=== PATIENT | male | born 1935 | race Caucasian/White ===

== ENCOUNTER 2019-10-26 11:49 | Outpatient (RCR) | payer OTHER, SELFPAY | END 2019-10-26 23:59 | disposition home or self-care (01) | LOC: ANHAUDIO 11:49 | PROVIDERS: PCP Otolaryngology; Visit Provider Family Medicine Adolescent Medicine | DX: Z46.1 Encounter for fitting and adjustment of hearing aid (principal) | CPT/HCPCS: 99199; V5267 ==

== ENCOUNTER 2020-07-25 11:53 | Outpatient (NON) | payer OTHER, SELFPAY ==
[2020-07-25 23:24] LABS: SARS-CoV-2 RNA PCR Positive
== END 2020-07-25 11:54 ==
PROVIDERS: Visit Provider Family Medicine Adolescent Medicine
DX: U07.1 COVID-19 (principal)
CPT/HCPCS: 87635; C9803; U0003

== ENCOUNTER → 2021-06-24 10:26 | Outpatient (CLI) | payer OTHER, SELFPAY ==
--- NOTE | ~2021-06-24 | XR_ITS ---
EXAMINATION: XR chest 2V DATE: 06/24/2021 11:13 INDICATION: Dyspnea TECHNIQUE: PA and lateral views of the chest were obtained. COMPARISON: Chest radiograph dated 10/28/2016 FINDINGS: Minimal opacities at the left lung base on the PA projection without evident correlate on the lateral projection and with favor atelectasis over pneumonia. No other airspace opacities, pulmonary edema, pleural effusion or pneumothorax. The cardiomediastinal silhouette is normal. Postoperative change of prior median sternotomy and aortic valve repair. Atherosclerotic aorta. Retained epicardial pacemake r leads along the anterior and inferior heart. Mild thoracic kyphosis with mild to moderate spondylos is and chronic anterior wedging of several mid to lower thoracic vertebral bodies. IMPRESSION: 1. Mild left basilar opacities and would favor atelectasis over pneumonia. Reviewed, dictated and finalized at location A.
== END ==
PROVIDERS: PCP Family Medicine Adolescent Medicine; Visit Provider Family Medicine Adolescent Medicine
DX: R06.00 Dyspnea, unspecified (principal); R91.8 Other nonspecific abnormal finding of lung field
CPT/HCPCS: 71046

== ENCOUNTER → 2023-05-11 08:38 | Outpatient (CLI) | payer OTHER, SELFPAY ==
--- NOTE | ~2023-05-11 | MR_ITS ---
MRI of the brain Clinical History: Dementia Technique: Axial and sagittal T1-weighted images were acquired. These were followed by axial T2-weigh dana, diffusion weighted, gradient, and FLAIR images. Findings: There is no acute infarct, intracranial hemorrhage, or mass lesion. There are mild chronic microvascular ischemic changes in the periventricular white matter bilaterally. Ventricles and subarachnoid spaces are dilated. Orbits are unremarkable. Paranasal sinuses and mastoi d air cells are clear. Major intracranial flow voids are intact. Sagittal midline structures are intact. IMPRESSION: Mild chronic microvascular ischemic changes and mild generalized atrophy. No acute infarct, intracranial hemorrhage, or mass lesion. Reviewed, dictated and finalized at location .
== END ==
PROVIDERS: PCP Family Medicine Adolescent Medicine; Visit Provider Family Medicine Adolescent Medicine
DX: F03.90 Unspecified dementia, unspecified severity, without behavioral disturbance, psychotic disturbance, mood disturbance, and anxiety (principal)
CPT/HCPCS: 70551

== ENCOUNTER 2024-10-22 13:25 | Emergency (ER) | payer OTHER, SELFPAY ==
[2024-10-22 13:53] VITALS: BP 151/74; PULSE 99; RESP 18; TEMP 36.3; O2SAT 98
[2024-10-22 14:42] LABS: Add Urine Microscopic? YES; Appearance Urine Cloudy (Clear); Bacteria Urine 4+ /hpf; Bilirubin Urine Negative (Negative); Blood Urine Trace (Negative); Color Urine Dark Yellow (Yellow); Glucose Urine UA Negative (Negative); Ketones Urine Trace mg/dL (Negative); Leukocyte Esterase Ur 2+ LEU/UL (Negative); Nitrate Urine Positive (Negative); Protein Urine 1+ mg/dL (Negative); RBC Urine 0-2 /hpf (0-2); Squamous Epithelial Cell Urine None Seen /hpf (Few); WBC Urine >100 /hpf (0-3)
--- NOTE | 2024-10-22 16:12 | ED.GENADULT ---
HPI - General Adult General Chief complaint: Urogenital-Male Stated complaint: hematuria Time Seen by Provider: 10/22/24 13:53 History of Present Illness HPI narrative: Patient is an 89-year-old male who presents ER with hematuria. Ongoing last couple of days. He has been stating his underwear. Has history of UTI or earlier in the month. No abdominal pain or flank pain. He has mild dementia and history is obtained from his family. Related Data Home Medications ?Medication ?Instructions ?Recorded ?Confirmed ?Last Taken ?Type ascorbic acid (vitamin C) 1,000 mg 1 g PO DAILY 09/03/21 09/26/24 Unknown History tablet aspirin 81 mg tablet,delayed 81 mg PO DAILY 09/03/21 09/26/24 Unknown History release (Adult Low Dose Aspirin) multivitamin 1 tablet PO DAILY 09/03/21 09/26/24 Unknown History rosuvastatin 20 mg tablet 20 mg PO DAILY 11/13/22 09/26/24 Unknown History mecobalamin (vitamin B12) 1,000 1,000 mcg PO DAILY 04/07/23 09/26/24 Unknown History mcg chewable tablet (B12 Active) Allergies Allergy/AdvReac Type Severity Reaction Status Date / Time bupropion AdvReac Intermediate tremors Verified 09/26/24 10:32 rosuvastatin AdvReac Mild diarrhea Verified 09/26/24 10:32 temazepam AdvReac Mild Unknown Verified 09/26/24 10:32 Review of Systems Constitutional: Constitutional: Reports no additional constitutional complaints Gastrointestinal: Gastrointestinal: Reports no additional gastrointestinal complaints Genitourinary: Genitourinary: Reports no additional male genitourinary complaints [facility] Past Medical History Medical History Traumatic amputation of second toe osteomyelitis Surgical History Surgical History History of aortic valve replacement (2013) History of inguinal hernia repair (2010) Status post reverse arthroplasty of left shoulder (2015) 03/07 Hx laparoscopic cholecystectomy (2010) Family History Family History Father Cancer Mother Cancer Daughter Lung cancer Social History Social History Smoking status: Former smoker Smoking end date: 08/23/69 Alcohol intake: current Drinks per week: 10 Substance use: never Substance use type: does not use Lack of Transportation: No Lack of Food: Never True Current Housing: I Have Housing Concerned About Future Housing: No Difficulty Paying Gas/Electric Bills: No Difficulty Paying for Meds: No Currently Unemployed: No Education: Master's Degree or Higher Difficulty w/ Childcare or Family Care: No Living arrangements: with family Occupation/Education: retired Gender identity (if verbalized by the patient): Male Sexual Orientation (if Verbalized by the Patient): Straight or Heterosexual Spiritual care concerns: No Agree to blood products: Yes Exam Narrative: GENERAL: Well-appearing, well-nourished, and in no acute distress. HEAD: Normocephalic, atraumatic. ENT: Mucous membranes moist. ABDOMEN: Soft, nontender, nondistended. : Normal appearing external genitalia with uncircumcised penis. No evidence of bleeding from urethral meatus, the foreskin, or scrotum. EXTREMITIES: Normal range of motion. No edema. SKIN: Warm, dry, no rash. NEURO: Alert and oriented x3. PSYCH: Normal mood and affect. Course Course Emergency Course: Informed patient and family of diagnosis and treatment plan. Discussed imaging results. Discharged with cefuroxime. Vital Signs Vital signs: Vital Signs Temperature 97.4 F L 10/22/24 13:53 Pulse Rate 99 10/22/24 13:53 Respiratory Rate 18 10/22/24 13:53 Blood Pressure 151/74 H 10/22/24 13:53 Pulse Oximetry 98 10/22/24 13:53 Oxygen Delivery Room Air 10/22/24 13:53 Temperature 97.4 F L 10/22/24 13:53 Pulse Rate 99 10/22/24 13:53 Respiratory Rate 18 10/22/24 13:53 Blood Pressure 151/74 H 10/22/24 13:53 Pulse Oximetry 98 10/22/24 13:53 Oxygen Delivery Room Air 10/22/24 13:53 Medical Decision Making Vital Signs Vital Signs: Vital Signs Temperature 97.4 F L 10/22/24 13:53 Pulse Rate 99 10/22/24 13:53 Respiratory Rate 18 10/22/24 13:53 Blood Pressure 151/74 H 10/22/24 13:53 Pulse Oximetry 98 10/22/24 13:53 Oxygen Delivery Room Air 10/22/24 13:53 Temperature 97.4 F L 10/22/24 13:53 Pulse Rate 99 10/22/24 13:53 Respiratory Rate 18 10/22/24 13:53 Blood Pressure 151/74 H 10/22/24 13:53 Pulse Oximetry 98 10/22/24 13:53 Oxygen Delivery Room Air 10/22/24 13:53 Lab Data Labs: Lab Results 10/22/24 Range/Units 14:17 Urine Color Dark yellow (Yellow) Urine Appearance Cloudy H (Clear) Urine pH 5.0 (5.0-9.0) Ur Specific [place] 1.020 (1.001-1.035) Urine Protein 1+ H (Negative) mg/dL Urine Glucose (UA) Negative (Negative) mg/dL Urine Ketones Trace H (Negative) mg/dL Ur Blood (Man) Trace (Negative) Urine Nitrate Positive H (Negative) Urine Bilirubin Negative (Negative) Urine Urobilinogen 1.0 (<2.0) mg/dL Leukocyte Esterase Rfl 2+ H (Negative) LILI/UL Urine RBC 0-2 (0-2) /hpf Urine WBC >100 H (0-3) /hpf Ur Squamous Epith Cells None seen (Few) /hpf Urine Bacteria 4+ H /hpf Urine Casts 3-5 Imaging Data Radiologist's impression: ITS Impressions Abdomen/Pelvis CT 10/22/24 15:21 IMPRESSION: 1. No evidence of appendicitis, diverticulitis or intestinal obstruction. Diverticulosis of the sigmoid colon. 2. Underfilled urinary bladder with thickened wall. Evaluation for cystitis advised. 3. Tiny stone in the left kidney lower pole. 4. Sliding hiatus hernia. Discharge Plan Discharge Clinical Impression: Acute UTI Patient Disposition: Home, Self-Care Condition: Stable Instructions: Antibiotic Form, Urinary Tract Infection in Men (ED) Additional Instructions: You should return to the emergency department if you develop severe nausea and vomiting and are unable to keep liquids down, if you develop severe back/flank or stomach pain, or if your symptoms are not clearly improving at home. Patient Language: Slovenian Prescriptions: New cefuroxime axetil 500 mg tablet 500 mg PO BID Qty: 20 0RF No Action aspirin [Adult Low Dose Aspirin] 81 mg tablet,delayed release (DR/EC) 81 mg PO DAILY multivitamin Tablet 1 tablet PO DAILY ascorbic acid (vitamin C) 1,000 mg tablet 1 g PO DAILY rosuvastatin 20 mg tablet 20 mg PO DAILY fluticasone propionate 50 mcg/actuation spray,suspension 2 spray intranasal DAILY Qty: 48 2RF Rx Instructions: administer into each nostril sulfamethoxazole-trimethoprim [Bactrim DS] 800-160 mg tablet 1 tablet PO Q12H Qty: 14 0RF lorazepam 0.5 mg tablet 0.5 mg PO QHS PRN (Reason: anxiety) Qty: 30 0RF mecobalamin (vitamin B12) [B12 Active] 1,000 mcg tablet,chewable 1,000 mcg PO DAILY donepezil 10 mg tablet 10 mg PO QHS Qty: 90 3RF pantoprazole 40 mg tablet,delayed release (DR/EC) 40 mg PO BID Qty: 180 1RF meloxicam 15 mg tablet See Rx Instructions .ROUTE .COMPLEX Qty: 90 2RF Dose Instruction: TAKE 1 TABLET BY MOUTH EVERY DAY Rx Instructions: TAKE 1 TABLET BY MOUTH EVERY DAY tamsulosin 0.4 mg capsule 0.4 mg PO DAILY Qty: 90 2RF trazodone 100 mg tablet 100 mg PO QHS Qty: 90 2RF memantine 10 mg tablet 10 mg PO BID Qty: 180 3RF Follow-up/Referrals: Vik Villalba MD [Primary Care Provider] - 1 Week
[2024-10-22 16:28] VITALS: BP 126/80; PULSE 70; RESP 16; TEMP 36.4; O2SAT 98
== END 2024-10-22 16:29 | disposition home or self-care (01) ==
PROVIDERS: Emergency Provider Emergency Medicine; PCP Family Medicine Adolescent Medicine
DX: N39.0 Urinary tract infection, site not specified (principal); Z95.2 Presence of prosthetic heart valve; Z96.612 Presence of left artificial shoulder joint; Z87.891 Personal history of nicotine dependence; Z90.49 Acquired absence of other specified parts of digestive tract; Z89.429 Acquired absence of other toe(s), unspecified side; Z79.82 Long term (current) use of aspirin; Z79.899 Other long term (current) drug therapy; K44.9 Diaphragmatic hernia without obstruction or gangrene; N20.0 Calculus of kidney
CPT/HCPCS: 74176; 81001; 87086; 87186; 99284

== ENCOUNTER 2024-11-18 11:13 | Emergency (ER) | payer OTHER, SELFPAY ==
--- NOTE | ~2024-11-18 | CT_ITS ---
History: Fall PROCEDURE: CT head without contrast. COMPARISON: Reference is made to an MRI examination of the brain dated 05/11/2023 TECHNIQUE: Axial imaging of the head performed from the skull base to the vertex without IV contrast. Sagittal a nd coronal reformations obtained. DLP: 681 mGy-cm FINDINGS: The ventricles are enlarged. The dilatation of the ventricles is proportional to the degree of sulcal prominence, not uncommon in the senescent brain. Decreased attenuation is identified within the periventricular white matter, likely secondary to micr ovascular ischemic disease, in a patient of this age. There is no mass, mass effect or midline shift. There is no abnormal extra-axial fluid collection or intracranial hemorrhage. Visualized paranasal sinuses are clear. The mastoid air cells are well aerated. No acute displaced fractures within the overlying cranium. Impression: No acute intracranial hemorrhage or suspicious mass effect. Reviewed, dictated and finalized at location A. Impression: No acute intracranial hemorrhage or suspicious mass effect.
--- OUTSIDE RECORDS SUMMARY | 2024-11-18 11:15 | XMS_ITS | Encounter Summary ---
Author Organization [facility] Address [address] [address] Care Team Providers Care Chha Name Role Phone Vik Villalba MD Primary Care Prov ider Vik Villalba MD Primary Care Prov ider Encounter Details Date Type Department Care Team (Late st Contact Info) Description 02/11/2016 Orders Only [facility] ProviderMarisel MD [address] [place] [id number] Social History Tobacco Use Types Packs/Day Years Used Date Smoking Tobacco: Former Cigarettes Q uit: 08/23/1969 Alcohol Use Standard Drinks/Week Comments Yes 0 (1 standard drink = 0.6 oz pur e alcohol) Sex and Gender Information Value Date Recorded Sex Assigned at Not on file Legal Sex Male 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 Historical Provider [facility] MOLINA ROMERO Final Result documented in this encounter Visit Diagnoses Not on filedocumented in this encounter Care Teams Chha Relationship Specialty Start Date End Date Vik Villalba MD [address] [place] [address] PCP - General 11/06/16 Vik Villalba MD [address] [place] [address] PCP - General 12/05/14 11/05/16 documented as of this encounter
--- OUTSIDE RECORDS SUMMARY | 2024-11-18 11:15 | XMS_ITS | Clinical Summary ---
Author Organization [facility] [address] [facility] [address] Address [address] [place] [address] Care Team Providers Care Social Media Marketer Name Role Phone Vik Villalba MD Primary Care Prov ider Allergies No known active allergies Medications multivitamin tablet tablet take 1 tablet by oral route every day with food 0 0 4 Active LORazepam (ATIVAN) 1 mg tablet take 1 tablet by oral route 3 times every day as needed 0 0 4 Active aspirin 81 mg tablet take 2 tablet by oral route every day 60 6 5 Active tamsulosin (FLOMAX) 0.4 mg capsule,extende d release 24hr take 1 capsule by oral route every day 1/2 hour following the same meal each day [address] (PROTONIX) 40 mg EC tablet Take 1 tablet (40 mg total) by mouth 2 (two) times a day Active temazepam (RESTORIL) 30 mg capsuleIndicati ons:Insomnia Take 1 capsule (30 mg total) by mouth daily as needed 3 7 Active traZODone (DESYREL) 50 mg tablet Take 1 tablet (50 mg total) by mouth nightly Active meloxicam (MOBIC) 15 mg tablet Take 1 tablet (15 mg total) by mouth daily Active buPROPion XL (WELLBUTRIN XL) 150 mg 24 hr tablet Take 1 tablet (150 mg total) by mouth daily Active ascorbic acid (VITAMIN C) 1,000 mg tablet Take 1 tablet (1,000 mg total) by mouth daily Active cyanocobalamin, vitamin B-12, 5,000 mcg tablet, sublingual Place under the tongue daily Active donepeziL (ARICEPT) 10 mg tablet Take 1 tablet (10 mg total) by mouth nightly at bedtime 4 Active memantine (NAMENDA) 10 mg tablet Take 1 tablet (10 mg total) by mouth 2 (two) times a day 4 Active amLODIPine (NORVASC) 10 mg tablet Take 1 tablet (10 mg total) by mouth nightly 90 tablet 6 4 Active rosuvastatin (CRESTOR) 20 mg tablet TAKE 1 TABLET BY MOUTH EVERY DAY 90 tablet 2 4 Active Active Problems Problem Noted Date Diagnosed Date Osteoarthritis of ankle or foot 01/28/2016 Pain in shoulder 12/11/2015 Arthralgia of ankle 11/25/2015 Fatigue 12/05/2014 Overview (11/27/2016): Fatigue Anxiety 12/05/2014 Overview (11/27/2016): Anxiety Aortic valve stenosis 04/17/2014 Surgical History Surgery Date Site/Laterality Comments AORTIC VALVE REPLACEMENT 08/23/2013 - 08/22/2014 Medical History Medical History Date Comments Hyperlipidemia Heart valve disease Social History Tobacco Use Types Packs/Day Years Used Date Smoking Tobacco: Former Smokeless Tobacco: Never Tobacco Cessation:Counseling Given: Not Answered Alcohol Use Standard Drinks/Week Comments Yes 0 (1 standard drink = 0.6 oz pur e alcohol) Personal Safety Answer Date Recorded Getting School Help Needed Not on file 10/14 Sex and Gender Information Value Date Recorded Sex Assigned at Not on file Legal Sex Male 7:29 PM MANAGER RADIATION Gender Identity Not on file Sexual Orientation Don't know 09/24/2021 9: 14 AM MANAGER RADIATION Sexual Orientation Straight 09/24/2021 9: 14 AM MANAGER RADIATION Obstetrics History Last Filed Vital Signs Vital Sign Reading Time Taken Comments Blood Pressure 138/86 02/16/2024 2:07 PM CDT Pulse 88 02/16/2024 2:07 PM CDT Temperature 36.7 C (98 F) 09/05/2020 1:00 PM MANAGER RADIATION Respiratory Rate 12 08/02/2019 9:20 AM MANAGER RADIATION Oxygen Saturation 97% 02/16/2024 2:07 PM CDT Inhaled Oxygen Concentration - - Weight 92.5 kg (204 lb) 02/16/2024 2:07 PM CDT Height 188 cm (6' 2 ) 02/16/2024 2:07 PM CDT Body Mass Index 26.19 02/16/2024 2:07 PM CDT Plan of Treatment Health Maintenance Due Date Last Done Comments Depression Screening 1937 Fall Risk Assessment 1937 Hepatitis B Screening 1955 Pneumococcal vaccine 65+ (1 of 1 - PCV) 1987 Zoster Vaccine (1 of 2) 1987 Well Visit 65+ 2002 Covid-19 Vaccine ( season) 2024 07/03/2021, 11/05/2020, 10/15/2020 Influenza Vaccine (#1) 2024 DTaP/Tdap/Td Vaccine (2 - Td or Tdap) 02/13/2031 Insurance [facility] Care Teams Social Media Marketer Relationship Specialty Start Date End Date Vik Villalba MD [address] [place] [address] PCP - General 11/06/16
--- OUTSIDE RECORDS SUMMARY | 2024-11-18 11:15 | XMS_ITS | Referral Summary ---
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 Gender Identity Not on file Sexual Orientation Don't know 09/24/2021 9: 14 AM LOCOMOTIVE SUPERVISOR Sexual Orientation Straight 09/24/2021 9: 14 AM LOCOMOTIVE SUPERVISOR Last Filed Vital Signs Vital Sign Reading Time Taken Comments Blood Pressure 138/86 02/16/2024 2:07 PM CDT Pulse 88 02/16/2024 2:07 PM CDT Temperature 36.7 C (98 F) 09/05/2020 1:00 PM LOCOMOTIVE SUPERVISOR Respiratory Rate 12 08/02/2019 9:20 AM LOCOMOTIVE SUPERVISOR Oxygen Saturation 97% 02/16/2024 2:07 PM CDT Inhaled Oxygen Concentration - - Weight 92.5 kg (204 lb) 02/16/2024 2:07 PM CDT Height 188 cm (6' 2 ) 02/16/2024 2:07 PM CDT Body Mass Index 26.19 02/16/2024 2:07 PM CDT Plan of Treatment Not on file Insurance [facility] Member Subscriber Plan / Payer ( fective 2008-Present) Name:David Azevedo Relation to Subscriber:Self Name:David Azevedo Payer ID:[id number] (NAIC) Type:MEDICARE RISK OTHER Address: [address] [place] [id number] Care Teams Storeperson Relationship Specialty Start Date End Date Vik Villalba MD [address] [facility] [place] [place] [address] PCP - General 11/06/16
--- OUTSIDE RECORDS SUMMARY | 2024-11-18 11:15 | XMS_ITS | Clinical Summary ---
Author Organization [facility] Address [address] [place] [address] Care Team Providers Care Hemstitching Machine Operator Name Role Phone Unavailable Primary Care Provider Unavailabl e Social History Tobacco Use Types Packs/Day Years Used Date Smoking Tobacco: Never Assessed Sex and Gender Information Value Date Recorded Sex Assigned at Not on file Legal Sex Male 4:38 PM CDT Gender Identity Not on file Sexual Orientation Not on file Plan of Treatment Health Maintenance Due Date Last Done Comments DTaP, Tdap and Td Vaccines ( 1 - Tdap) 1956 Zoster Vaccines (1 of 2) 1987 Pneumococcal Vaccine: 65+ Ye ars (1 of 1 - PCV) 2002 RSV Immunization or 60+ Years (1 - 1-dose 75+ series) 2012 COVID-19 Vaccine ( - 2023-2 5 season) 2024 Influenza Adult (#1) 2024 Meningococcal B Vaccine Aged Out No l onger eligible based on patient's age to complete this topic Meningococcal Vaccine Aged Out No jorje lexii eligible based on patient's age to complete this topic RSV Immunizations Under 20 Months Aged Out No longer eligible based on patient's age to complete this topic
--- OUTSIDE RECORDS SUMMARY | 2024-11-18 11:15 | XMS_ITS ---
Author Name DEONTE SO M.D. Address [address] [place] [address] Phone [phone] Organization [facility] Care Team Providers Care Field Crop Harvest Contractor Name Role Phone DEONTE SO Unavailable [phone] Sukhwinder Cuevas Unavailable [phone] Vik Villalba Unavailable [phone] Reason for Referral Not Available Allergies, adverse reactions, alerts No known allergies History of medication use Medication Class Instructions Start Date End Date Daily Value Multivitamin Tab 1 tablet orally daily 12-24-19 No Data Available Vitamin B12 100 MCG Tab Take 1 tablet daily 2024-11-09 No Data Available Vitamin C Tab Chewable take one tablet daily 2024-10-22 0 No Data Available Aspirin 81 mg Tab delayed rel 1 tablet every day 11-09 No Data Available Meloxicam 15 mg Tab 1 tablet orally daily PRN No Data Available Problem List Problem Status Onset Date Resolved Date Generalized anxiety disorder Active 2024-11-09 N/A Essential (primary) hypertension Active N/A GERD (gastroesophageal reflux disease) Active 15-11-19 N/A Hyperlipidemia Active 2024-11-09 N/A BPH (benign prostatic hyperplasia) Active 3-20 N/A Nonrheumatic aortic (valve) stenosis Active 2024 N/A Arthritis Active 2024-11-09 N/A Dementia without behavioral disturbance Active N/A Primary insomnia Active 2024-11-09 N/A Encounters Encounters Type Facility Date of Service Diagnosis/Co mplaint Home visit for evaluation and management of new patient requiring medically appropriate examination and moderate level of medical decision making. If using time, at least 60 minutes total time on enco [facility] [place] 11/09/2024 Generalized anxiety disorderEssential (primary) hypertensionGastro-esophageal reflux disease without esophagitisHyperlipidemia, unspecifiedEnlarged prostate without lower urinary tract symptomsNonrheumatic aortic (valve) stenosisUnspecified osteoarthritis, unspecified siteUnspecified dementia without behavioral disturbancePrimary insomniaBody mass index (bmi) 25.0-25.9, adult Vital Signs Date of Collection Vitals 2024-11-09 12:15:00 Height - 190.5 cmWei ght - 93.44 kgBody Mass Index (BMI) - 25.75 kg/m2BP Diastolic - 72.0 mm[Hg]BP Systolic - 132.0 mm[Hg]Heart Rate - 78.0 /minRespiratory Rate - 18.0 /minO2 % BldC Oximetry - 98.0 % Social History Social History Social History Observation Description Effec tive Time Current Smoking Status Former smoker 2024-10-22 9 Sex Male History of Procedures Procedures Service Procedure code Service date Servicing provider Phone# Home visit for evaluation and management of new patient requiring medically appropriate examination and moderate level of medical decision making. If using time, at least 60 minutes total time on enco [id number] 2024-11-09 No Data Available No Data Availa ble Functional Status No Information Mental Status No Information Assessments Date of Service Assessments 2024-11-09 12:15:00 Generalized anxiety disorderEssential (primary) hypertensionGERD (gastroesophageal reflux disease)HyperlipidemiaBPH (benign prostatic hyperplasia)Nonrheumatic aortic (valve) stenosisArthritisDementia without behavioral disturbancePrimary insomnia Plan of Care Date of Service Plans 2024-11-09 12:15:00 Chronic, stable. Josh es lorazepam 0.5-1mg BID PRN. Continue taking medications as prescribed and F/U as directed.Follows cardiology. BP slightly elevated today. Likely due to patient walking into garage for a drink prior to vitals (at the end of visit). states it's typically controlled. Takes amlodipine 10mg daily. Continue taking medications as prescribed and F/U as directed.Chronic, stable. Takes pantoprazole 40mg BID. Continue taking medications as prescribed and F/U as directed.Chronic, unable to view most recent lipid panel. Takes rosuvastatin 20mg daily. Continue taking medications as prescribed and F/U as directed.Takes tamsulosin 0.4mg daily. Continue taking medications as prescribed and F/U as directed.Follows cardiology. Takes rosuvastatin 20mg daily and aspirin 81mg daily. Continue taking medications as prescribed and F/U as directed.Takes meloxicam 15mg daily PRN. Continue taking medications as prescribed and F/U as directed.Stable. Takes donepezil 10mg nightly and memantine 10mg BID. Continue taking medications as prescribed and F/U as directed.Takes trazodone 100mg nightly. Continue taking medications as prescribed and F/U as directed. Goals Date Goal 2024-11-09 Continue taking medi cations as prescribed and F/U with PCP as directed. Will F/U yearly for Healthy House Call exam/screening. Health Concerns Date Concern 2024-11-09 Healthy House Calls is a service that involves a physician or advanced practice provider conducting comprehensive assessments in your patient s home or virtually to address crucial areas such as chronic conditions, quality gaps, social concerns, fall risk prevention, and various screenings. Please note that your patient will remain attributed to you even though they are participating in this service. If you have any questions, please reach out directly to our team at the phone number above.Your patient, David Azevedo, 39, was seen today for a Healthy House Call visit. Patient read rights and responsibilities and consented to treatment. The purpose of this summary is to update you on the patient's current health status and share any relevant findings from the examination. 2024-11-09 Recommendations:Katia muñoz yearly F/U PCP appt or call patient's to remind her of one if already scheduled. 2024-11-09 Patient is a 89yr ol d male. They are being seen today for a Healthy House Calls comprehensive exam. Patient denies any current concerns or symptoms. notes that he has had 2 recent UTI's- ED visit on 10/22/24 for UTI and fall. Patient and deny any remaining symptoms. He finished his antibiotic course a week or so ago. Current diagnoses and medications are as listed below. Patient lives spouse. Closest daughter is in [place], [place]. He is independent with his care regarding ADL's, but relies on for other things as he has dementia. He does not use any form of assistive device for ambulation.
[2024-11-18 11:23] VITALS: BP 127/77; PULSE 95; RESP 16; TEMP 36.4; O2SAT 97
[2024-11-18 14:45] VITALS: BP 156/96; PULSE 95; RESP 16; O2SAT 95
--- OUTSIDE RECORDS SUMMARY | 2024-11-18 15:10 | XMS_ITS | Referral Summary ---
Author Organization [facility] [address] [facility] [address] Address [address] [place] [address] Care Team Providers Care Slipman Name Role Phone Vik Villalba MD Primary [...] on file Legal Sex Male 7:29 PM CAMERA TECHNICIAN Gender Identity Not on file Sexual Orientation Don't know 09/24/2021 9: 14 AM CAMERA TECHNICIAN Sexual Orientation Straight 09/24/2021 9: 14 AM CAMERA TECHNICIAN Last Filed Vital Signs Vital Sign Reading Time Taken Comments Blood Pressure 138/86 02/16/2024 2:07 PM CDT Pulse 88 02/16/2024 2:07 PM CDT Temperature 36.7 C (98 F) 09/05/2020 1:00 PM CAMERA TECHNICIAN Respiratory Rate 12 08/02/2019 9:20 AM CAMERA TECHNICIAN Oxygen Saturation 97% 02/16/2024 2:07 PM CDT Inhaled Oxygen Concentration - - Weight 92.5 kg (204 lb) 02/16/2024 2:07 PM CDT Height 188 cm (6' 2 ) 02/16/2024 2:07 PM CDT Body Mass Index 26.19 02/16/2024 2:07 PM CDT Plan of Treatment Not on file Insurance [facility] Member Subscriber Plan / Payer ( fective 2008-Present) Name:David Azevedo Relation to Subscriber:Self Name:David Azevedo Payer ID:[id number] (NAIC) Type:MEDICARE RISK OTHER Address: [address] [place] [id number] Care Teams Slipman Relationship Specialty Start Date End Date Vik Villalba MD [address] [facility] [place] [address] PCP - General 11/06/16
--- OUTSIDE RECORDS SUMMARY | 2024-11-18 15:10 | XMS_ITS | Encounter Summary ---
Author Organization [facility] Address [address] [address] Care Team Providers Care Supervisor Vendor Quality Name Role Phone Vik Villalba MD Primary Care Prov ider Vik Villalba MD Primary Care Prov ider Encounter Details Date Type Department Care Team (Late st Contact Info) Description 02/11/2016 [facility] Only [facility] ProviderMarisel MD [address] [place] [address] Social History Tobacco Use Types Packs/Day Years Used Date Smoking Tobacco: Former Cigarettes Q uit: 08/23/1969 Alcohol Use Standard Drinks/Week Comments Yes 0 (1 standard drink = 0.6 oz pur e alcohol) Sex and Gender Information Value Date Recorded Sex Assigned at Not on file Legal Sex Male 7:29 PM FIRMWARE MANAGER Gender Identity Not on file Sexual Orientation Don't know 09/24/2021 9: 14 AM FIRMWARE MANAGER Sexual Orientation Straight 09/24/2021 9: 14 AM FIRMWARE MANAGER documented as of this encounter Plan of [...] on filedocumented in this encounter Care Teams Supervisor Vendor Quality Relationship Specialty Start Date End Date Vik Villalba MD [address] [place] [address] PCP - General 11/06/16 Vik Villalba MD [address] [place] [address] PCP - General 12/05/14 11/05/16 documented as of this encounter
--- OUTSIDE RECORDS SUMMARY | 2024-11-18 15:10 | XMS_ITS ---
Author Name DEONTE SO M.D. Address [address] [facility] [place] [address] Phone [phone] Organization [facility] ([facility]) Care Team Providers Care Sliver Handler Name Role Phone DEONTE SO Unavailable [phone] Sukhwinder Cuevas Unavailable [phone] Vik Villalba Unavailable [phone] Reason for Referral Not Available Allergies, adverse [...] least 60 minutes [place] [id number] 2024-11-09 No Data Available No Data Availa [...] Patient lives spouse. Closest daughter is in [place], [place]. He is independent with his care regarding ADL's, but relies on for other things as he has dementia. He does not use any form of assistive device for ambulation.
--- OUTSIDE RECORDS SUMMARY | 2024-11-18 15:10 | XMS_ITS | Clinical Summary ---
Author Organization [facility] [address] [facility] [address] Address [address] [place] [address] Care Team Providers Care Aurist Name Role Phone Vik Villalba MD Primary [...] on file Legal Sex Male 7:29 PM SPRING COILER HAND Gender Identity Not on file Sexual Orientation Don't know 09/24/2021 9: 14 AM SPRING COILER HAND Sexual Orientation Straight 09/24/2021 9: 14 AM SPRING COILER HAND Obstetrics History Last Filed Vital Signs Vital Sign Reading Time Taken Comments Blood Pressure 138/86 02/16/2024 2:07 PM CDT Pulse 88 02/16/2024 2:07 PM CDT Temperature 36.7 C (98 F) 09/05/2020 1:00 PM SPRING COILER HAND Respiratory Rate 12 08/02/2019 9:20 AM SPRING COILER HAND Oxygen Saturation 97% 02/16/2024 2:07 PM CDT [...] (2 - Td or Tdap) 02/13/2031 Insurance [facility] Care Teams Aurist Relationship Specialty Start Date End Date Vik Villalba MD [address] [place] [address] PCP - General 11/06/16
--- OUTSIDE RECORDS SUMMARY | 2024-11-18 15:10 | XMS_ITS | Clinical Summary ---
Author Organization [facility] Address [address] [place] [address] Care Team Providers Care Door Captain Name Role Phone Unavailable Primary Care Provider [...]
[2024-11-18 15:11] LABS: Add Urine Microscopic? YES; Appearance Urine Turbid (Clear); Bacteria Urine 4+ /hpf; Bilirubin Urine Negative (Negative); Blood Urine 1+ (Negative); Color Urine Dark Yellow (Yellow); Glucose Urine UA Negative (Negative); Ketones Urine Trace mg/dL (Negative); Leukocyte Esterase Ur 3+ LEU/UL (Negative); Nitrate Urine Positive (Negative); Protein Urine 1+ mg/dL (Negative); Specific Grav Ur 1.022 (1.001-1.035); Squamous Epithelial Cell Urine None Seen /hpf (Few); WBC Urine >100 /hpf (0-3); pH Urine 5.5 (5.0-9.0)
--- NOTE | 2024-11-18 15:23 | ED.MALEGU ---
HPI - Male Genitourinary General Chief complaint: Urogenital-Male Stated complaint: Urinary S/Sx Time Seen by Provider: 11/18/24 14:49 History of Present Illness HPI Narrative: 89-year-old male with a history of dementia, frequent urinary tract infections. Patient presents to the emergency department today with a UTI as well as falling yesterday. He lives at home with his family. Patient himself has no acute complaints and has been acting appropriately according to family. He is endorsing urinary pain and some dysuria. He had a recent urinary tract infection that was treated with cefuroxime with success. He tried calling his primary care provider but his primary care provider is currently retiring and his new PCP has yet to evaluate him so they sent him to the ER for treatment. Patient denies any symptoms at this time, no headache, vision changes, injury to his extremities. No chest pain shortness a breath. His family at bedside states that he lives with them and he is safe going home upon evaluation here. Related Data Home Medications ?Medication ?Instructions ?Recorded ?Confirmed ?Last Taken ?Type ascorbic acid (vitamin C) 1,000 mg 1 g PO DAILY 09/03/21 09/26/24 Unknown History tablet aspirin 81 mg tablet,delayed 81 mg PO DAILY 09/03/21 09/26/24 Unknown History release (Adult Low Dose Aspirin) multivitamin 1 tablet PO DAILY 09/03/21 09/26/24 Unknown History rosuvastatin 20 mg tablet 20 mg PO DAILY 11/13/22 09/26/24 Unknown History mecobalamin (vitamin B12) 1,000 1,000 mcg PO DAILY 04/07/23 09/26/24 Unknown History mcg chewable tablet (B12 Active) Allergies Allergy/AdvReac Type Severity Reaction Status Date / Time bupropion AdvReac Intermediate tremors Verified 11/18/24 11:14 rosuvastatin AdvReac Mild diarrhea Verified 11/18/24 11:14 temazepam AdvReac Mild Unknown Verified 11/18/24 11:14 Review of Systems Review of Systems: As reviewed above in the HPI [facility] Past Medical History Medical History Traumatic amputation of second toe osteomyelitis Surgical History Surgical History History of aortic valve replacement (2013) History of inguinal hernia repair (2010) Status post reverse arthroplasty of left shoulder (2015) 03/07 Hx laparoscopic cholecystectomy (2010) Family History Family History Father Cancer Mother Cancer Daughter Lung cancer Social History Social History Smoking status: Former smoker Smoking end date: 08/23/69 Alcohol intake: current Drinks per week: 10 Substance use: never Substance use type: does not use Lack of Transportation: No Lack of Food: Never True Current Housing: I Have Housing Concerned About Future Housing: No Difficulty Paying Gas/Electric Bills: No Difficulty Paying for Meds: No Currently Unemployed: No Education: Master's Degree or Higher Difficulty w/ Childcare or Family Care: No Living arrangements: with family Occupation/Education: retired Gender identity (if verbalized by the patient): Male Sexual Orientation (if Verbalized by the Patient): Straight or Heterosexual Spiritual care concerns: No Agree to blood products: Yes Exam Narrative: GENERAL: [Well-appearing, well-nourished, and in no acute distress.] HEAD: [Normocephalic, atraumatic.] EYES: [PERRLA and EOMI.] ENT: Nares clear, no rhinorrhea or epistaxis. Mucous membranes moist. NECK: Supple. CHEST: [Clear to auscultation. No respiratory distress.] HEART: [Regular rate and rhythm]. No murmur heard. [Normal peripheral pulses.] ABDOMEN: [Soft, nondistended], [nontender], [No rigidity or guarding] EXTREMITIES: Normal range of motion. [No edema.] SKIN: Warm, dry, no rash. NEURO: [No focal deficits]. Alert and oriented [x3.] PSYCH: [Normal mood and affect.] Course Vital Signs Vital signs: Vital Signs Temperature 36.4 C L 11/18/24 11:23 Pulse Rate 95 11/18/24 11:23 Respiratory Rate 16 11/18/24 11:23 Blood Pressure 127/77 11/18/24 11:23 Pulse Oximetry 97 11/18/24 11:23 Temperature 36.4 C L 11/18/24 11:23 Pulse Rate 95 03/29/25 14:45 Respiratory Rate 16 11/18/24 14:45 Blood Pressure 156/96 H 11/18/24 14:45 Pulse Oximetry 95 11/18/24 14:45 MDM - Male Genitourinary MDM Narrative Medical decision making narrative: 89-year-old male with history of frequent falls, dementia, frequent urinary tract infections. Recent UTI several weeks ago that was treated with cefuroxime with success. He is reporting recurrence of urinary pain and he had a fall yesterday. No apparent traumatic injuries. He states that he has no complaints at this time. He has an unremarkable physical examination and unremarkable neurological assessment. Normal vital signs. Suspicion presently for recurrence of urinary tract infection which could have also led to his fall. Given the lack of any traumatic injuries low suspicion for any acute intracranial pathology but given his age and risk factors a CT of the head was obtained in addition to urinalysis. Urinalysis does show signs of urinary tract infection. Previous urine culture showed pansensitive E coli. He was started on Rocephin and will be sent home with Bactrim. CT scan shows no acute intracranial abnormalities. He is safe for discharge home at this time. Comfortable with plan and at bedside also comfortable with this. Medical Records Attestation: I reviewed the patient's medical records. Lab Data Attestation: I reviewed the patient's lab results. Labs: Lab Results 11/18/24 Range/Units 14:46 Urine Color Dark yellow (Yellow) Urine Appearance Turbid H (Clear) Urine pH 5.5 (5.0-9.0) Ur Specific Organ 1.022 (1.001-1.035) Urine Protein 1+ H (Negative) mg/dL Urine Glucose (UA) Negative (Negative) mg/dL Urine Ketones Trace H (Negative) mg/dL Ur Blood (Man) 1+ H (Negative) Urine Nitrate Positive H (Negative) Urine Bilirubin Negative (Negative) Urine Urobilinogen 1.0 (<2.0) mg/dL Leukocyte Esterase Rfl 3+ H (Negative) LILI/UL Urine RBC 3-5 H (0-2) /hpf Urine WBC >100 H (0-3) /hpf Ur Squamous Epith Cells None seen (Few) /hpf Urine Bacteria 4+ H /hpf Urine Casts 3-5 Imaging Data Attestation: I personally reviewed and interpreted this imaging study as follows: My impression: Impressions Head CT 11/18/24 15:58 Impression: No acute intracranial hemorrhage or suspicious mass effect. Discharge Plan Discharge Clinical Impression: Urinary tract infection, Frequent falls Patient Disposition: Home, Self-Care Condition: Stable Instructions: Antibiotic Form, Urinary Tract Infection in Men (ED) Additional Instructions: You do have a urinary tract infection, your scans were negative for any acute injury or findings, we will send you home with a different antibiotic to try. Call your primary care provider for a follow-up appointment. Return with any new or worsening concerns. Patient Language: Slovenian Prescriptions: New sulfamethoxazole-trimethoprim [Bactrim DS] 800-160 mg tablet 1 tablet PO Q12H Qty: 14 0RF No Action aspirin [Adult Low Dose Aspirin] 81 mg tablet,delayed release (DR/EC) 81 mg PO DAILY multivitamin Tablet 1 tablet PO DAILY ascorbic acid (vitamin C) 1,000 mg tablet 1 g PO DAILY rosuvastatin 20 mg tablet 20 mg PO DAILY fluticasone propionate 50 mcg/actuation spray,suspension 2 spray intranasal DAILY Qty: 48 2RF Rx Instructions: administer into each nostril sulfamethoxazole-trimethoprim [Bactrim DS] 800-160 mg tablet 1 tablet PO Q12H Qty: 14 0RF lorazepam 0.5 mg tablet 0.5 mg PO QHS PRN (Reason: anxiety) Qty: 30 0RF mecobalamin (vitamin B12) [B12 Active] 1,000 mcg tablet,chewable 1,000 mcg PO DAILY cefuroxime axetil 500 mg tablet 500 mg PO BID Qty: 20 0RF donepezil 10 mg tablet 10 mg PO QHS Qty: 90 3RF pantoprazole 40 mg tablet,delayed release (DR/EC) 40 mg PO BID Qty: 180 1RF meloxicam 15 mg tablet See Rx Instructions .ROUTE .COMPLEX Qty: 90 2RF Dose Instruction: TAKE 1 TABLET BY MOUTH EVERY DAY Rx Instructions: TAKE 1 TABLET BY MOUTH EVERY DAY tamsulosin 0.4 mg capsule 0.4 mg PO DAILY Qty: 90 2RF trazodone 100 mg tablet 100 mg PO QHS Qty: 90 2RF memantine 10 mg tablet 10 mg PO BID Qty: 180 3RF Follow-up/Referrals: Vik Villalba MD [Primary Care Provider] - Time of Disposition: 16:12
[2024-11-18 16:56] VITALS: BP 137/80; PULSE 75; RESP 18; O2SAT 100
== END 2024-11-18 17:44 | disposition home or self-care (01) ==
PROVIDERS: Emergency Provider Student in an Organized Health Care Education/Training Program; PCP Family Medicine Adolescent Medicine
DX: N39.0 Urinary tract infection, site not specified (principal); R29.6 Repeated falls; F03.90 Unspecified dementia, unspecified severity, without behavioral disturbance, psychotic disturbance, mood disturbance, and anxiety; Z95.2 Presence of prosthetic heart valve; Z96.612 Presence of left artificial shoulder joint; Z87.891 Personal history of nicotine dependence; Z90.49 Acquired absence of other specified parts of digestive tract; Z89.429 Acquired absence of other toe(s), unspecified side; Z79.82 Long term (current) use of aspirin; Z79.899 Other long term (current) drug therapy
CPT/HCPCS: 70450; 81001; 87086; 87186; 96365; 99284; J0696

== ENCOUNTER 2024-12-18 09:48 | Emergency (ER) | payer OTHER, SELFPAY ==
[2024-12-18 09:52] VITALS: BP 130/51; PULSE 67; RESP 18; TEMP 36.6; O2SAT 95
[2024-12-18 10:05] LABS: Add Urine Microscopic? YES; Appearance Urine Turbid (Clear); Bilirubin Urine Negative (Negative); Blood Urine 1+ (Negative); Color Urine Yellow (Yellow); Glucose Urine UA Negative (Negative); Ketones Urine Trace mg/dL (Negative); Leukocyte Esterase Ur 3+ LEU/UL (Negative); Nitrate Urine Positive (Negative); Protein Urine 1+ mg/dL (Negative); Specific Grav Ur 1.016 (1.001-1.035)
--- OUTSIDE RECORDS SUMMARY | 2024-12-18 10:49 | XMS_ITS ---
Author Name DEONTE SO M.D. Address [address] [facility] [place] [address] Phone [phone] Organization [facility] ([facility] Care Team Providers Care Press Clippings Cutter And Paster Name Role Phone DEONTE SO Unavailable [phone] Sukhwinder Cuevas Unavailable [phone] Vik Villalba Unavailable [phone] Reason for Referral Not Available Allergies, adverse [...] tive Time Current Smoking Status Former smoker 2024-11-22 8 Sex Male History of Procedures Procedures Service Procedure code Service date Servicing provider Phone# Home visit for evaluation and management of new patient requiring medically appropriate examination and moderate level of medical decision making. If using time, at least 60 minutes [place] on [place]co [id number] 2024-11-09 No Data Available No Data Availa [...] Patient lives spouse. Closest daughter is in [place], [place]. He is independent with his care regarding ADL's, but relies on for other things as he has dementia. He does not use any form of assistive device for ambulation.
--- OUTSIDE RECORDS SUMMARY | 2024-12-18 10:50 | XMS_ITS | Encounter Summary ---
Author Organization [facility] Address [address] [address] Care Team Providers Care Reporting Manager Name Role Phone Vik Villalba MD Primary Care Prov ider Vik Villalba MD Primary Care Prov ider Encounter Details Date Type Department Care Team (Late st Contact Info) Description 02/11/2016 Orders Only [facility] ProviderMarisel MD [address] [place] [address] Social History Tobacco Use Types Packs/Day Years Used Date Smoking Tobacco: Former Cigarettes Q uit: 08/23/1969 Alcohol Use Standard Drinks/Week Comments Yes 0 (1 standard drink = 0.6 oz pur e alcohol) Sex and Gender Information Value Date Recorded Sex Assigned at Not on file Legal Sex Male 7:29 PM GUIDEMAN Gender Identity Not on file Sexual Orientation Don't know 09/24/2021 9: 14 AM GUIDEMAN Sexual Orientation Straight 09/24/2021 9: 14 AM GUIDEMAN documented as of this encounter Plan of [...] on filedocumented in this encounter Care Teams Reporting Manager Relationship Specialty Start Date End Date Vik Villalba MD [address] [place] [address] PCP - General 11/06/16 Vik Villalba MD [address] [place] [address] PCP - General 12/05/14 11/05/16 documented as of this encounter
--- OUTSIDE RECORDS SUMMARY | 2024-12-18 10:50 | XMS_ITS | Clinical Summary ---
Author Organization [facility] Address [address] [place] [address] Care Team Providers Care Emergency Worker Name Role Phone Unavailable Primary Care Provider [...] Td Vaccines ( 1 - Tdap) 1956 Pneumococcal Vaccine: 50+ Ye ars (1 of 1 - PCV) 1987 Zoster Vaccines (1 of 2) 1987 RSV Immunization or 60+ Years (1 - 1-dose 75+ series) 2012 COVID-19 Vaccine ( - 2023-2 5 season) 2024 Meningococcal B Vaccine Aged Out No l onger eligible based on patient's age to complete this topic Meningococcal Vaccine Aged Out No jorje lexii eligible based on patient's age to complete this topic RSV Immunizations Under 20 Months Aged Out No longer eligible based on patient's age to complete this topic
--- OUTSIDE RECORDS SUMMARY | 2024-12-18 10:50 | XMS_ITS | Referral Summary ---
Author Organization [facility] [address] [facility] [address] Address [address] [place] [address] Care Team Providers Care Behavioral Health Professional Name Role Phone Vik Villalba MD Primary [...] on file Legal Sex Male 7:29 PM AGRICULTURAL SPECIALIST Gender Identity Not on file Sexual Orientation Don't know 09/24/2021 9: 14 AM AGRICULTURAL SPECIALIST Sexual Orientation Straight 09/24/2021 9: 14 AM AGRICULTURAL SPECIALIST Last Filed Vital Signs Vital Sign Reading Time Taken Comments Blood Pressure 138/86 02/16/2024 2:07 PM CDT Pulse 88 02/16/2024 2:07 PM CDT Temperature 36.7 C (98 F) 09/05/2020 1:00 PM AGRICULTURAL SPECIALIST Respiratory Rate 12 08/02/2019 9:20 AM AGRICULTURAL SPECIALIST Oxygen Saturation 97% 02/16/2024 2:07 PM CDT Inhaled Oxygen Concentration - - Weight 92.5 kg (204 lb) 02/16/2024 2:07 PM CDT Height 188 cm (6' 2 ) 02/16/2024 2:07 PM CDT Body Mass Index 26.19 02/16/2024 2:07 PM CDT Plan of Treatment Not on file Insurance [facility] Member Subscriber Plan / Payer ( fective 2008-Present) Name:David Azevedo Relation to Subscriber:Self Name:David Azevedo Payer ID:[id number] (NAIC) Type:MEDICARE RISK OTHER Address: [address] [place] [id number] Care Teams Behavioral Health Professional Relationship Specialty Start Date End Date Vik Villalba MD [address] [facility] [place] [address] PCP - General 11/06/16
--- OUTSIDE RECORDS SUMMARY | 2024-12-18 10:50 | XMS_ITS | Clinical Summary ---
Author Organization [facility] [address] [facility] [address] Address [address] [place] [address] Care Team Providers Care Scrap Worker Name Role Phone Vik Villalba MD Primary [...] on file Legal Sex Male 7:29 PM SOFTWARE MAINTENANCE ENGINEER Gender Identity Not on file Sexual Orientation Don't know 09/24/2021 9: 14 AM SOFTWARE MAINTENANCE ENGINEER Sexual Orientation Straight 09/24/2021 9: 14 AM SOFTWARE MAINTENANCE ENGINEER Obstetrics History Last Filed Vital Signs Vital Sign Reading Time Taken Comments Blood Pressure 138/86 02/16/2024 2:07 PM CDT Pulse 88 02/16/2024 2:07 PM CDT Temperature 36.7 C (98 F) 09/05/2020 1:00 PM SOFTWARE MAINTENANCE ENGINEER Respiratory Rate 12 08/02/2019 9:20 AM SOFTWARE MAINTENANCE ENGINEER Oxygen Saturation 97% 02/16/2024 2:07 PM CDT [...] season) 2024 07/03/2021, 11/05/2020, 10/15/2020 Influenza Vaccine (Season Ended) 2025 DTaP/Tdap/Td Vaccine (2 - Td or Tdap) 02/13/[address] [facility] Care Teams Scrap Worker Relationship Specialty Start Date End Date Vik Villalba MD [address] [place] [address] PCP - General 11/06/16
[2024-12-18 11:15] VITALS: BP 104/70; PULSE 81; RESP 16; TEMP 36.7; O2SAT 100
[2024-12-18 11:31] LABS: RBC Urine 0-2 /hpf (0-2); WBC Clumps Urine Present /HPF; WBC Urine >100 /hpf (0-3)
[2024-12-18 11:32] LABS: Squamous Epithelial Cell Urine Rare /hpf (Few)
[2024-12-18 12:00] VITALS: BP 113/76; PULSE 80; RESP 16; TEMP 36.7; O2SAT 100
--- NOTE | 2024-12-18 12:18 | ED.MALEGU ---
HPI - Male Genitourinary General Chief complaint: Urogenital-Male Stated complaint: possible UTI Time Seen by Provider: 12/18/24 10:56 History of Present Illness HPI Narrative: Patient is an 89-year-old male with history of UTI dementia who presents ER with concerns for UTI. Dysuria with urinary frequency beginning this morning. No fevers or chills. No abdominal pain. No history of urinary retention. Has follow-up with Dr. De La Rosa scheduled January 02. Recently treated with cephalosporins and Bactrim. Related Data Home Medications ?Medication ?Instructions ?Recorded ?Confirmed ?Last Taken ?Type ascorbic acid (vitamin C) 1,000 mg 1 g PO DAILY 09/03/21 09/26/24 Unknown History tablet aspirin 81 mg tablet,delayed 81 mg PO DAILY 09/03/21 09/26/24 Unknown History release (Adult Low Dose Aspirin) multivitamin 1 tablet PO DAILY 09/03/21 09/26/24 Unknown History rosuvastatin 20 mg tablet 20 mg PO DAILY 11/13/22 09/26/24 Unknown History mecobalamin (vitamin B12) 1,000 1,000 mcg PO DAILY 04/07/23 09/26/24 Unknown History mcg chewable tablet (B12 Active) Allergies Allergy/AdvReac Type Severity Reaction Status Date / Time bupropion AdvReac Intermediate tremors Verified 11/18/24 11:14 rosuvastatin AdvReac Mild diarrhea Verified 11/18/24 11:14 temazepam AdvReac Mild Unknown Verified 11/18/24 11:14 Review of Systems Constitutional: Constitutional: Reports no additional constitutional complaints Gastrointestinal: Gastrointestinal: Reports no additional gastrointestinal complaints Genitourinary: Genitourinary: Denies hematuria, Reports dysuria, Denies testicular pain and Reports urinary frequency [facility] Past Medical History Medical History Traumatic amputation of second toe osteomyelitis Surgical History Surgical History History of aortic valve replacement (2013) History of inguinal hernia repair (2010) Status post reverse arthroplasty of left shoulder (2015) 03/07 Hx laparoscopic cholecystectomy (2010) Family History Family History Father Cancer Mother Cancer Daughter Lung cancer Social History Social History Smoking status: Former smoker Smoking end date: 08/23/69 Alcohol intake: current Drinks per week: 10 Substance use: never Substance use type: does not use Lack of Transportation: No Lack of Food: Never True Current Housing: I Have Housing Concerned About Future Housing: No Difficulty Paying Gas/Electric Bills: No Difficulty Paying for Meds: No Currently Unemployed: No Education: Master's Degree or Higher Difficulty w/ Childcare or Family Care: No Living arrangements: with family Occupation/Education: retired Gender identity (if verbalized by the patient): Male Sexual Orientation (if Verbalized by the Patient): Straight or Heterosexual Spiritual care concerns: No Agree to blood products: Yes Exam Narrative: GENERAL: Well-appearing, well-nourished, and in no acute distress. HEAD: Normocephalic, atraumatic. ENT: Mucous membranes moist. CHEST: Clear to auscultation. No respiratory distress. HEART: Regular rate and rhythm. Normal peripheral pulses. ABDOMEN: Soft, nontender, nondistended. EXTREMITIES: Normal range of motion. No edema. NEURO: Alert and oriented x2. PSYCH: Normal mood and affect. Course Course Emergency Course: No urinary retention on bladder scan. Discharge with oral antibiotic. Vital Signs Vital signs: Vital Signs Temperature 97.9 F 12/18/24 09:52 Pulse Rate 67 12/18/24 09:52 Respiratory Rate 18 12/18/24 09:52 Blood Pressure 130/51 L 12/18/24 09:52 Pulse Oximetry 95 12/18/24 09:52 Oxygen Delivery Room Air 12/18/24 09:52 Temperature 97.9 F 12/18/24 09:52 Pulse Rate 67 12/18/24 09:52 Respiratory Rate 18 12/18/24 09:52 Blood Pressure 130/51 L 12/18/24 09:52 Pulse Oximetry 95 12/18/24 09:52 Oxygen Delivery Room Air 12/18/24 09:52 MDM - Male Genitourinary Lab Data Labs: Lab Results 12/18/24 Range/Units 09:54 Urine Color Yellow (Yellow) Urine Appearance Turbid H (Clear) Urine pH 6.0 (5.0-9.0) Ur Specific [place] 1.016 (1.001-1.035) Urine Protein 1+ H (Negative) mg/dL Urine Glucose (UA) Negative (Negative) mg/dL Urine Ketones Trace H (Negative) mg/dL Ur Blood (Man) 1+ H (Negative) Urine Nitrate Positive H (Negative) Urine Bilirubin Negative (Negative) Urine Urobilinogen 1.0 (<2.0) mg/dL Leukocyte Esterase Rfl 3+ H (Negative) LILI/UL Urine RBC 0-2 (0-2) /hpf Urine WBC >100 H (0-3) /hpf Urine WBC Clumps Present H (None) /HPF Ur Squamous Epith Cells Rare (Few) /hpf Discharge Plan Discharge Clinical Impression: Acute UTI Patient Disposition: Home Condition: Stable Instructions: Antibiotic Form, Urinary Tract Infection in Men (ED) Additional Instructions: You should return to the emergency department if you develop severe nausea and vomiting and are unable to keep liquids down, if you develop severe back/flank or stomach pain, or if your symptoms are not clearly improving at home. Patient Language: Georgian Prescriptions: New cefuroxime axetil 500 mg tablet 500 mg PO BID Qty: 20 0RF No Action aspirin [Adult Low Dose Aspirin] 81 mg tablet,delayed release (DR/EC) 81 mg PO DAILY multivitamin Tablet 1 tablet PO DAILY ascorbic acid (vitamin C) 1,000 mg tablet 1 g PO DAILY rosuvastatin 20 mg tablet 20 mg PO DAILY fluticasone propionate 50 mcg/actuation spray,suspension 2 spray intranasal DAILY Qty: 48 2RF Rx Instructions: administer into each nostril sulfamethoxazole-trimethoprim [Bactrim DS] 800-160 mg tablet 1 tablet PO Q12H Qty: 14 0RF mecobalamin (vitamin B12) [B12 Active] 1,000 mcg tablet,chewable 1,000 mcg PO DAILY sulfamethoxazole-trimethoprim [Bactrim DS] 800-160 mg tablet 1 tablet PO Q12H Qty: 14 0RF cefuroxime axetil 500 mg tablet 500 mg PO BID Qty: 20 0RF donepezil 10 mg tablet 10 mg PO QHS Qty: 90 3RF pantoprazole 40 mg tablet,delayed release (DR/EC) 40 mg PO BID Qty: 180 1RF meloxicam 15 mg tablet See Rx Instructions .ROUTE .COMPLEX Qty: 90 2RF Dose Instruction: TAKE 1 TABLET BY MOUTH EVERY DAY Rx Instructions: TAKE 1 TABLET BY MOUTH EVERY DAY tamsulosin 0.4 mg capsule 0.4 mg PO DAILY Qty: 90 2RF trazodone 100 mg tablet 100 mg PO QHS Qty: 90 2RF memantine 10 mg tablet 10 mg PO BID Qty: 180 3RF lorazepam 0.5 mg tablet 0.5 mg PO QHS PRN (Reason: anxiety) Qty: 30 4RF Follow-up/Referrals: Vik Villalba MD [Primary Care Provider] - 1 Week
[2024-12-18 12:43] VITALS: BP 111/70; PULSE 77; RESP 18; TEMP 36.8; O2SAT 98
[2024-12-18 12:59] VITALS: BP 111/70; PULSE 78; RESP 16; O2SAT 99
--- NOTE | 2024-12-18 13:00 | PC.NURSE ---
Pt. taken out to vehicle by this RN via WC. Pt. d/c to home with .
--- OUTSIDE RECORDS SUMMARY | 2024-12-18 13:42 | XMS_ITS | Referral Summary ---
Author Organization [facility] [address] [facility] [address] Address [address] [place] [address] Care Team Providers Care Veneer Sander Name Role Phone Vik Villalba MD Primary [...] on file Legal Sex Male 7:29 PM PET STYLIST Gender Identity Not on file Sexual Orientation Don't know 09/24/2021 9: 14 AM PET STYLIST Sexual Orientation Straight 09/24/2021 9: 14 AM PET STYLIST Last Filed Vital Signs Vital Sign Reading Time Taken Comments Blood Pressure 138/86 02/16/2024 2:07 PM CDT Pulse 88 02/16/2024 2:07 PM CDT Temperature 36.7 C (98 F) 09/05/2020 1:00 PM PET STYLIST Respiratory Rate 12 08/02/2019 9:20 AM PET STYLIST Oxygen Saturation 97% 02/16/2024 2:07 PM CDT Inhaled Oxygen Concentration - - Weight 92.5 kg (204 lb) 02/16/2024 2:07 PM CDT Height 188 cm (6' 2 ) 02/16/2024 2:07 PM CDT Body Mass Index 26.19 02/16/2024 2:07 PM CDT Plan of Treatment Not on file Insurance [facility] Member Subscriber Plan / Payer ( fective 2008-Present) Name:David Azevedo Relation to Subscriber:Self Name:David Azevedo Payer ID:[id number] (NAIC) Type:MEDICARE RISK OTHER Address: [address] [place] [id number] Care Teams Veneer Sander Relationship Specialty Start Date End Date Vik Villalba MD [address] [facility] [address] PCP - General 11/06/16
--- OUTSIDE RECORDS SUMMARY | 2024-12-18 13:42 | XMS_ITS | Clinical Summary ---
Author Organization [facility] [place] [address] [facility] [address] Address [address] [place] [address] Care Team Providers Care Personal Lines Sales Executive Name Role Phone Vik Villalba MD Primary [...] on file Legal Sex Male 7:29 PM COMMERCIAL SALES DIRECTOR Gender Identity Not on file Sexual Orientation Don't know 09/24/2021 9: 14 AM COMMERCIAL SALES DIRECTOR Sexual Orientation Straight 09/24/2021 9: 14 AM COMMERCIAL SALES DIRECTOR Obstetrics History Last Filed Vital Signs Vital Sign Reading Time Taken Comments Blood Pressure 138/86 02/16/2024 2:07 PM CDT Pulse 88 02/16/2024 2:07 PM CDT Temperature 36.7 C (98 F) 09/05/2020 1:00 PM COMMERCIAL SALES DIRECTOR Respiratory Rate 12 08/02/2019 9:20 AM COMMERCIAL SALES DIRECTOR Oxygen Saturation 97% 02/16/2024 2:07 PM CDT [...] (2 - Td or Tdap) 02/13/2031 Insurance [facility] Care Teams Personal Lines Sales Executive Relationship Specialty Start Date End Date Vik Villalba MD [address] [place] [address] PCP - General 11/06/16
--- OUTSIDE RECORDS SUMMARY | 2024-12-18 13:42 | XMS_ITS ---
Author Name DEONTE SO M.D. Address [address] [facility] [address] [place] [address] Phone [phone] Organization [facility] ([facility]) Care Team Providers Care Software Sales Executive Name Role Phone DEONTE SO Unavailable [phone] Sukhwinder Cuevas Unavailable [phone] Vik Villalba Unavailable [phone] Reason for Referral Not Available Allergies, adverse [...] least 60 [place] [id number] 2024-11-09 No Data Available No Data Availa [...] Patient lives spouse. Closest daughter is in [place], [place]. He is independent with his care regarding ADL's, but relies on for other things as he has dementia. He does not use any form of assistive device for ambulation.
--- OUTSIDE RECORDS SUMMARY | 2024-12-18 13:42 | XMS_ITS | Encounter Summary ---
Author Organization [facility] Address [address] [address] Care Team Providers Care Coagulant Dipper Name Role Phone Vik Villalba MD Primary Care Prov ider Vik Villalba MD Primary Care Prov ider Encounter Details Date Type Department Care Team (Late st Contact Info) Description 02/11/2016 Orders Only [facility] ProviderMarisel MD [address] [place] [address] Social History Tobacco Use Types Packs/Day Years Used Date Smoking Tobacco: Former Cigarettes Q uit: 08/23/1969 Alcohol Use Standard Drinks/Week Comments Yes 0 (1 standard drink = 0.6 oz pur e alcohol) Sex and Gender Information Value Date Recorded Sex Assigned at Not on file Legal Sex Male 7:29 PM CLINIC MD ASSOCIATE Gender Identity Not on file Sexual Orientation Don't know 09/24/2021 9: 14 AM CLINIC MD ASSOCIATE Sexual Orientation Straight 09/24/2021 9: 14 AM CLINIC MD ASSOCIATE documented as of this encounter Plan of [...] on filedocumented in this encounter Care Teams Coagulant Dipper Relationship Specialty Start Date End Date Vik Villalba MD [address] [place] [address] PCP - General 11/06/16 Vik Villalba MD [address] [place] [address] PCP - General 12/05/14 11/05/16 documented as of this encounter
--- OUTSIDE RECORDS SUMMARY | 2024-12-18 13:42 | XMS_ITS | Clinical Summary ---
Author Organization [facility] Address [address] [place] [address] Care Team Providers Care Shoe Handler Name Role Phone Unavailable Primary Care Provider [...]
== END 2024-12-18 13:00 | disposition home or self-care (01) ==
PROVIDERS: Emergency Provider Emergency Medicine; PCP Family Medicine Adolescent Medicine
DX: N39.0 Urinary tract infection, site not specified (principal); F03.90 Unspecified dementia, unspecified severity, without behavioral disturbance, psychotic disturbance, mood disturbance, and anxiety; Z95.2 Presence of prosthetic heart valve; Z87.891 Personal history of nicotine dependence; Z89.429 Acquired absence of other toe(s), unspecified side; Z90.49 Acquired absence of other specified parts of digestive tract; Z79.82 Long term (current) use of aspirin; Z79.899 Other long term (current) drug therapy
CPT/HCPCS: 81001; 87086; 87186; 99283

== ENCOUNTER 2025-01-10 12:57 | Outpatient (CLI) | payer OTHER, SELFPAY ==
--- OUTSIDE RECORDS SUMMARY | 2025-01-10 13:00 | XMS_ITS | Referral Summary ---
Author Organization [facility] [place] [address] Address [address] [place] [address] Care Team Providers Care Boiler/Chiller Operator Name Role Phone Vik Villalba MD Primary Care Prov ider Allergies No known active allergies Medications multivitamin tablet tablet take 1 tablet by oral route every day with food 0 0 03/06/20 14 Active LORazepam (ATIVAN) 1 mg tablet take 1 tablet by oral route 3 times every day as needed 0 0 05/03/20 14 Active aspirin 81 mg tablet take 2 tablet by oral route every day 60 6 09/14/19 15 Active tamsulosin (FLOMAX) 0.4 mg capsule,extend ed release 24hr take 1 capsule by oral route every day 1/2 hour following the same meal each day 0 0 12/06/[address] (PROTONIX) 40 mg EC tablet Take 1 tablet (40 mg total) by mouth 2 (two) times a day Active temazepam (RESTORIL) 30 mg capsuleIndicat ions:Insomnia Take 1 capsule (30 mg total) by mouth daily as needed 3 07/27/20 17 Active traZODone (DESYREL) 50 mg tablet Take [...] (1,000 mg total) by mouth daily Active cyanocobalamin , vitamin B-12, 5,000 mcg tablet, sublingual Place under the tongue daily Active donepeziL (ARICEPT) 10 mg tablet Take 1 tablet (10 mg total) by mouth nightly at bedtime 12/15/19 24 Active memantine (NAMENDA) 10 mg tablet Take 1 tablet (10 mg total) by mouth 2 (two) times a day 01/26/20 24 Active amLODIPine (NORVASC) 10 mg tablet Take 1 tablet (10 mg total) by mouth nightly 90 tablet 6 02/16/20 24 Active rosuvastatin (CRESTOR) 20 mg tablet TAKE 1 TABLET BY MOUTH EVERY DAY 90 tablet 01/09/20 25 Active rosuvastatin (CRESTOR) 20 mg tablet TAKE 1 TABLET BY MOUTH EVERY DAY 90 tablet 2 04/25/20 24 025 Discontinued Active Problems Problem Noted Date Diagnosed Date [...] on file Legal Sex Male 7:29 PM COOKER MEAL Gender Identity Not on file Sexual Orientation Don't know 09/24/2021 9: 14 AM COOKER MEAL Sexual Orientation Straight 09/24/2021 9: 14 AM COOKER MEAL Last Filed Vital Signs Vital Sign Reading Time Taken Comments Blood Pressure 138/86 02/16/2024 2:07 PM CDT Pulse 88 02/16/2024 2:07 PM CDT Temperature 36.7 C (98 F) 09/05/2020 1:00 PM COOKER MEAL Respiratory Rate 12 08/02/2019 9:20 AM COOKER MEAL Oxygen Saturation 97% 02/16/2024 2:07 PM CDT Inhaled Oxygen Concentration - - Weight 92.5 kg (204 lb) 02/16/2024 2:07 PM CDT Height 188 cm (6' 2 ) 02/16/2024 2:07 PM CDT Body Mass Index 26.19 02/16/2024 2:07 PM CDT Plan of Treatment Not on file Insurance [facility] Member Subscriber Plan / Payer ( fective 2008-Present) Name:MairaDesean lathamjohnathan Dumont Relation to Subscriber:Self Name:David Azevedo Payer ID:[id number] (NAIC) Type:MEDICARE RISK OTHER Address: [place] [phone] [facility] Care Teams Boiler/Chiller Operator Relationship Specialty Start Date End Date Vik Villabla MD [address] [place] [address] PCP - General 11/06/16
--- OUTSIDE RECORDS SUMMARY | 2025-01-10 13:00 | XMS_ITS | Encounter Summary ---
Author Organization [facility] Address [address] [address] Care Team Providers Care Pyrometer Temperature Regulator Name Role Phone Vik Villalba MD Primary Care Prov ider Vik Villalba MD Primary Care Prov ider Encounter Details Date Type Department Care Team (Late st Contact Info) Description 02/11/2016 Orders Only [facility] ProviderMarisel MD [address] [place] [address] Social History Tobacco Use Types Packs/Day Years Used Date Smoking Tobacco: Former Cigarettes Q uit: 08/23/1969 Alcohol Use Standard Drinks/Week Comments Yes 0 (1 standard drink = 0.6 oz pur e alcohol) Sex and Gender Information Value Date Recorded Sex Assigned at Not on file Legal Sex Male 7:29 PM LITHOGRAPHIC PHOTOGRAPHER Gender Identity Not on file Sexual Orientation Don't know 09/24/2021 9: 14 AM LITHOGRAPHIC PHOTOGRAPHER Sexual Orientation Straight 09/24/2021 9: 14 AM LITHOGRAPHIC PHOTOGRAPHER documented as of this encounter Plan of [...] on filedocumented in this encounter Care Teams Pyrometer Temperature Regulator Relationship Specialty Start Date End Date Vik Villalba MD [address] [place] [address] PCP - General 11/06/16 Vik Villalba MD [address] [place] [address] PCP - General 12/05/14 11/05/16 documented as of this encounter
--- OUTSIDE RECORDS SUMMARY | 2025-01-10 13:00 | XMS_ITS ---
Author Name DEONTE SO M.D. Address [address] [facility] [place] [address] Phone [phone] Organization [facility] ([facility]) Care Team Providers Care Billet Grinder Name Role Phone DEONTE SO Unavailable [phone] Sukhwinder Cuevas Unavailable [phone] Vik Villalba Unavailable [phone] Reason for Referral Not Available Allergies, adverse [...] tive Time Current Smoking Status Former smoker 2024-12-22 1 Sex Male History of Procedures Procedures Service Procedure code Service date Servicing provider Phone# Home visit for evaluation and management of new patient requiring medically appropriate examination and moderate level of medical decision making. If using time, at least 60 minutes [place] [id number] 2024-11-09 No Data Available No Data Availa [...] Patient lives spouse. Closest daughter is in [place], [place]. He is independent with his care regarding ADL's, but relies on for other things as he has dementia. He does not use any form of assistive device for ambulation.
--- OUTSIDE RECORDS SUMMARY | 2025-01-10 13:00 | XMS_ITS | Clinical Summary ---
Author Organization [facility] [place] [address] [facility] [address] Address [address] [place] [address] Care Team Providers Care Clinical Training Specialist Name Role Phone Vik Villalba MD Primary [...] file Legal Sex Male 7:29 PM MANAGER CATEGORY Gender Identity Not on file Sexual Orientation Don't know 09/24/2021 9: 14 AM MANAGER CATEGORY Sexual Orientation Straight 09/24/2021 9: 14 AM MANAGER CATEGORY Obstetrics History Last Filed Vital Signs Vital Sign Reading Time Taken Comments Blood Pressure 138/86 02/16/2024 2:07 PM CDT Pulse 88 02/16/2024 2:07 PM CDT Temperature 36.7 C (98 F) 09/05/2020 1:00 PM MANAGER CATEGORY Respiratory Rate 12 08/02/2019 9:20 AM MANAGER CATEGORY Oxygen Saturation 97% 02/16/2024 2:07 PM CDT [...] Well Visit 65+ 2002 Covid-19 Vaccine ( - season) 2024 07/03/2021, 11/05/2020, 10/15/2020 Influenza Vaccine (Season Ended) 2025 DTaP/Tdap/Td Vaccine (2 - Td or Tdap) 02/13/2031 Insurance [facility] Care Teams Clinical Training Specialist Relationship Specialty Start Date End Date Vik Villalba MD [address] [place] [address] PCP - General 11/06/16
== END 2025-01-10 12:58 | disposition home or self-care (01) ==
LOC: ANHAUDIO 12:58
PROVIDERS: PCP Family Medicine Adolescent Medicine; Visit Provider Otolaryngology
DX: H90.3 Sensorineural hearing loss, bilateral (principal); Z97.4 Presence of external hearing-aid; H61.23 Impacted cerumen, bilateral
CPT/HCPCS: 92557; 92567

== ENCOUNTER 2025-01-16 12:12 | Outpatient (CLI) | payer OTHER, SELFPAY ==
--- NOTE | ~2025-01-16 | CT_ITS ---
Non-contrast CT scan of the Abdomen and Pelvis Clinical indication: Kidney stones Technique: 2.5 mm axial scans were obtained through the abdomen and pelvis without intravenous or or al contrast. Dose reduction technique was used on this scan by utilizing automated exposure control a nd iterative reconstruction technique. The dose-length product (DLP) was 263.60 mGy-cm. COMPARISON: 10/22/2024 Findings: Images through the lung bases reveal stable bibasilar, peripheral chronic interstitial dis ease. 2 mm nonobstructing left renal stone present. No right renal stone. No ureteral stone or hydronephros is on either side. The liver, spleen, pancreas, and adrenals appear normal. Cholecystectomy clips are present. There are extensive atherosclerotic calcifications of the aorta. . There is no evidence of bowel obstruction. Images through the pelvis were performed. There is no evidence of ascites or lymphadenopathy. Urinary bladder unremarkable. No pelvic mass seen. Stable compression fractures of T11 and L1. Probable mild compression fracture of L2, new from prior exam. Impression: 2 mm nonobstructing left renal stone. No ureteral stone or hydronephrosis on either side. L2 compression fracture, new from prior exam, therefore most likely acute. Stable chronic compression fractures of T11 and L1. Reviewed, dictated and finalized at location M. Impression: 2 mm nonobstructing left renal stone. No ureteral stone or hydronephrosis on ei ther side. L2 compression fracture, new from prior exam, therefore most likely acute. Stab le chronic compression fractures of T11 and L1.
--- OUTSIDE RECORDS SUMMARY | 2025-01-16 12:16 | XMS_ITS | Referral Summary ---
Author Organization [facility] [place] [address] Address [address] [place] [address] Care Team Providers Care Slot Key Person Name Role Phone Vik Villalba MD Primary [...] on file Legal Sex Male 7:29 PM METAL TEMPERER Gender Identity Not on file Sexual Orientation Don't know 09/24/2021 9: 14 AM METAL TEMPERER Sexual Orientation Straight 09/24/2021 9: 14 AM METAL TEMPERER Last Filed Vital Signs Vital Sign Reading Time Taken Comments Blood Pressure 138/86 02/16/2024 2:07 PM CDT Pulse 88 02/16/2024 2:07 PM CDT Temperature 36.7 C (98 F) 09/05/2020 1:00 PM METAL TEMPERER Respiratory Rate 12 08/02/2019 9:20 AM METAL TEMPERER Oxygen Saturation 97% 02/16/2024 2:07 PM CDT Inhaled Oxygen Concentration - - Weight 92.5 kg (204 lb) 02/16/2024 2:07 PM CDT Height 188 cm (6' 2 ) 02/16/2024 2:07 PM CDT Body Mass Index 26.19 02/16/2024 2:07 PM CDT Plan of Treatment Not on file Insurance [facility] Member Subscriber Plan / Payer ( fective 2008-Present) Name:MairaDesean lathamjohnathan Dumont Relation to Subscriber:Self Name:David Azevedo Payer ID:[id number] (NAIC) Type:MEDICARE RISK OTHER Address: [place] [id number] [facility] Care Teams Slot Key Person Relationship Specialty Start Date End Date Vik Villalba MD [address] [place] [address] PCP - General 11/06/16
--- OUTSIDE RECORDS SUMMARY | 2025-01-16 12:16 | XMS_ITS | Clinical Summary ---
Author Organization [facility] [place] [address] [facility] [address] Address [address] [place] [address] Care Team Providers Care Business Management Specialist Name Role Phone Vik Villalba MD [...] on file Legal Sex Male 7:29 PM SHOP COORDINATOR Gender Identity Not on file Sexual Orientation Don't know 09/24/2021 9: 14 AM SHOP COORDINATOR Sexual Orientation Straight 09/24/2021 9: 14 AM SHOP COORDINATOR Obstetrics History Last Filed Vital Signs Vital Sign Reading Time Taken Comments Blood Pressure 138/86 02/16/2024 2:07 PM CDT Pulse 88 02/16/2024 2:07 PM CDT Temperature 36.7 C (98 F) 09/05/2020 1:00 PM SHOP COORDINATOR Respiratory Rate 12 08/02/2019 9:20 AM SHOP COORDINATOR Oxygen Saturation 97% 02/16/2024 2:07 PM CDT [...] (2 - Td or Tdap) 02/13/2031 Insurance [facility] Care Teams Business Management Specialist Relationship Specialty Start Date End Date Vik Villalba MD [address] [place] [address] PCP - General 11/06/16
--- OUTSIDE RECORDS SUMMARY | 2025-01-16 12:16 | XMS_ITS ---
Author Name DEONTE SO M.D. Address [address] [facility] [place] [address] Phone [phone] Organization [facility] ([facility]) Care Team Providers Care Business Services Manager Name Role Phone DEONTE SO Unavailable [phone] Sukhwinder Cuevas Unavailable [phone] Vik Villalba Unavailable [phone] Reason for Referral Not Available Allergies, adverse [...] List Problem Status Onset Date Resolved Date Synopsis Generalized anxiety disorder Active 2024-11-09 N/A N/A Essential (primary) hypertension Active 2024-11-09 N/A N/A GERD (gastroesophageal reflux disease) Active N/A N/A Hyperlipidemia Active 2024-11-09 N/A N/A BPH (benign prostatic hyperplasia) Active 2024-11-09 N /A N/A Nonrheumatic aortic (valve) stenosis Active 2024-11-09 N/A N/A Arthritis Active 2024-11-09 N/A N/A Dementia without behavioral disturbance Active 2024-10 N/A N/A Primary insomnia Active 2024-11-09 N/A N/A Encounters Encounters Type Facility Date of [...] Time Current Smoking Status Former smoker 2024-12-22 7 Sex Male History of Procedures Procedures Service Procedure code Service date Servicing provider Phone# Home visit for evaluation and management of new patient requiring medically appropriate examination and moderate level of medical decision making. If using time, at least 60 minutes [place] on [place] [id number] 2024-11-09 No Data Available No Data Availa [...] Patient lives spouse. Closest daughter is in [place], [place]. He is independent with his care regarding ADL's, but relies on for other things as he has dementia. He does not use any form of assistive device for ambulation.
--- OUTSIDE RECORDS SUMMARY | 2025-01-16 12:16 | XMS_ITS | Encounter Summary ---
Author Organization [facility] Address [address] [address] Care Team Providers Care Trend Investigator Name Role Phone Vik Villalba MD Primary Care Prov ider Vik Villalba MD Primary Care Prov ider Encounter Details Date Type Department Care Team (Late st Contact Info) Description 02/11/2016 Orders Only [facility] ProviderMarisel MD [address] [place] [address] Social History Tobacco Use Types Packs/Day Years Used Date Smoking Tobacco: Former Cigarettes Q uit: 08/23/1969 Alcohol Use Standard Drinks/Week Comments Yes 0 (1 standard drink = 0.6 oz pur e alcohol) Sex and Gender Information Value Date Recorded Sex Assigned at Not on file Legal Sex Male 7:29 PM COMPUTER PROGRAMMING SUPERVISOR Gender Identity Not on file Sexual Orientation Don't know 09/24/2021 9: 14 AM COMPUTER PROGRAMMING SUPERVISOR Sexual Orientation Straight 09/24/2021 9: 14 AM COMPUTER PROGRAMMING SUPERVISOR documented as of this encounter Plan of [...] on filedocumented in this encounter Care Teams Trend Investigator Relationship Specialty Start Date End Date Vik Villalba MD [address] [place] [address] PCP - General 11/06/16 Vik Villalba MD [address] [place] [address] PCP - General 12/05/14 11/05/16 documented as of this encounter
== END 2025-01-16 12:13 | disposition home or self-care (01) ==
PROVIDERS: PCP Family Medicine Adolescent Medicine; Visit Provider Nurse Practitioner Family
DX: N20.0 Calculus of kidney (principal); S32.029A Unspecified fracture of second lumbar vertebra, initial encounter for closed fracture; X58.XXXA Exposure to other specified factors, initial encounter
CPT/HCPCS: 74176

== ENCOUNTER 2025-02-12 10:30 | Outpatient (RCR) | payer OTHER, SELFPAY | END 2025-02-12 23:59 | disposition home or self-care (01) | LOC: ANHAUDIO 10:30 | PROVIDERS: PCP Family Medicine Adolescent Medicine; Visit Provider Family Medicine Adolescent Medicine | DX: Z46.1 Encounter for fitting and adjustment of hearing aid (principal) | CPT/HCPCS: 99199; V5261 ==

== ENCOUNTER 2025-02-21 11:36 | Inpatient (IN) | payer OTHER, SELFPAY ==
[2025-02-21] VITALS (23 sets, daily range): BP systolic 91–142; BP diastolic 51–82; PULSE 78–97; RESP 13–26; TEMP 36.8–37.1; O2SAT 91–100; BMI 22.9
--- NOTE | ~2025-02-21 | XR_ITS ---
EXAMINATION: XR chest 2V DATE: 02/21/2025 13:14 INDICATION: Hypotension TECHNIQUE: frontal and lateral views of the chest were obtained. COMPARISON: Chest radiograph dated 06/24/2021 FINDINGS: Small lung volumes with mild streaky bibasilar atelectasis. No pulmonary edema, pleural effusion or p neumothorax. Calcified right hilar and mediastinal lymph nodes consistent with old granulomatous dise ase. Heart size is normal. Postoperative change of prior median sternotomy and aortic valve repair. T here are also retained epicardial pacemaker leads. Cholecystectomy clips in right upper quadrant. Sev ere right glenohumeral osteoarthritis. Reverse left total shoulder arthroplasty. IMPRESSION: 1. Small lung volumes with mild bibasilar atelectasis. Reviewed, dictated and finalized at location A.
--- NOTE | ~2025-02-21 | CT_ITS ---
EXAMINATION: CT brain wo con DATE: 02/21/2025 13:20 INDICATION: Hypertension and falls TECHNIQUE: Computed tomography (CT) of the head was performed without intravenous contrast. Sagittal and coronal reconstructions were performed. The mA was adjusted according to patient size. Iterative reconstruction technique was employed. The dose-length product was 681.00 mGy-cm. COMPARISON: head CT dated 11/18/2024 and brain MR dated 05/11/2023 FINDINGS: No acute intracranial hemorrhage, acute infarction or abnormal extra axial fluid collection. 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 There is mild scattered white matter hypoattenuation consistent with chronic small vessel is chemic disease. Symmetric prominence of the sulci and ventricles consistent with mild to moderate age -appropriate diffuse cerebral volume loss. No mass/mass effect. Intracranial calcified cerebral ather osclerosis is noted. Mucosal thickening the bilateral ethmoid sinuses. The orbits and mastoid air rafia ls are normal. IMPRESSION: 1. 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 No acute intracranial process. 2. Age-related changes including moderate diffuse volume loss and mild scattered white matter hypoatt enuation consistent with chronic small vessel ischemic disease. Reviewed, dictated and finalized at location A. IMPRESSION: 1. 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 No acute intracranial process. 2. Age-related changes including moderate diffuse volume loss and mild scattere d white matter hypoattenuation consistent with chronic small vessel ischemic di sease.
--- NOTE | ~2025-02-21 | XR_ITS ---
EXAMINATION: XR chest 1V portable DATE: 02/22/2025 11:19 INDICATION: Possible aspiration with wheezing TECHNIQUE: frontal view of the chest was obtained. COMPARISON: Chest radiograph dated 02/21/2025 FINDINGS: Lung volumes remain small. Lower lung predominant bilateral increased initial pattern with bronchial wall thickening. No pleural effusion or pneumothorax. Heart size within normal limits for AP techniqu e. Median sternotomy wires and prior aortic valve repair. There are retained epicardial pacemaker arpan ds. Cholecystectomy clips in right upper quadrant. Advanced right glenohumeral osteoarthritis and rev erse left total shoulder arthroplasty. IMPRESSION: 1. Small lung volumes with increased initial pattern and bronchial wall thickening in both lungs with lower lung predominance. Differential would include mild pulmonary edema, bronchitis/pneumonia or re active airway disease/asthma. Reviewed, dictated and finalized at location B. IMPRESSION: 1. Small lung volumes with increased initial pattern and bronchial wall thicken ing in both lungs with lower lung predominance. Differential would include mild pulmonary edema, bronchitis/pneumonia or reactive airway disease/asthma.
--- NOTE | ~2025-02-21 | US_ITS ---
US renal BI Ordering provider: Jade Zaragoza APRN History: . NHUNG . Comparison: None. Technique: Ultrasound bilateral kidneys. Findings: RIGHT KIDNEY: Measures 11x 5.6x 5.5 cm in length which is normal in size. No renal cysts. No renal ma ss or visualized echogenic stones. Otherwise, normal echotexture and contour. No hydronephrosis. Norm al renal cortical thickness. LEFT KIDNEY: Measures 10.9x 6.1x 6 cm in length which is normal in size. No renal cysts. No renal mas s or visualized echogenic stones. Otherwise, normal echotexture and contour. No hydronephrosis. Lila l renal cortical thickness. BLADDER: Normal. . The wall measures 0.3 cm. Ureteral jets were seen bilaterally. IMPRESSION: No definite abnormality seen. Reviewed, dictated and finalized at location A.
--- OUTSIDE RECORDS SUMMARY | 2025-02-21 11:40 | XMS_ITS | Encounter Summary ---
Author Organization [facility] Address [address] [address] Care Team Providers Care Chauffeur Airport Limousine Name Role Phone Vik Villalba MD Primary Care Prov ider Vik Villalba MD Primary Care Prov ider Encounter Details Date Type Department Care Team (Late st Contact Info) Description 02/11/2016 Orders Only [facility] ProviderMarisel MD [address] [place] [address] Social History Tobacco Use Types Packs/Day Years Used Date Smoking Tobacco: Former Cigarettes Q uit: 08/23/1969 Alcohol Use Standard Drinks/Week Comments Yes 0 (1 standard drink = 0.6 oz pur e alcohol) Sex and Gender Information Value Date Recorded Sex Assigned at Not on file Legal Sex Male 7:29 PM PRODUCT DEMONSTRATOR Gender Identity Not on file Sexual Orientation Don't know 09/24/2021 9: 14 AM PRODUCT DEMONSTRATOR Sexual Orientation Straight 09/24/2021 9: 14 AM PRODUCT DEMONSTRATOR documented as of this encounter Plan of [...] on filedocumented in this encounter Care Teams Chauffeur Airport Limousine Relationship Specialty Start Date End Date Vik Villalba MD [address] [place] [address] PCP - General 11/06/16 Vik Villalba MD [address] [place] [address] PCP - General 12/05/14 11/05/16 documented as of this encounter
--- OUTSIDE RECORDS SUMMARY | 2025-02-21 11:40 | XMS_ITS | Referral Summary ---
Author Organization [facility] [address] [facility] [address] Address [address] [place] [address] Care Team Providers Care Fuel Distribution System Operator Name Role Phone Vik Villalba MD [...] TABLET BY MOUTH EVERY DAY 90 tablet 5 Active Active Problems Problem Noted Date Diagnosed [...] on file Legal Sex Male 7:29 PM SPRAY FOAM INSTALLER Gender Identity Not on file Sexual Orientation Don't know 09/24/2021 9: 14 AM SPRAY FOAM INSTALLER Sexual Orientation Straight 09/24/2021 9: 14 AM SPRAY FOAM INSTALLER Last Filed Vital Signs Vital Sign Reading Time Taken Comments Blood Pressure 138/86 02/16/2024 2:07 PM CDT Pulse 88 02/16/2024 2:07 PM CDT Temperature 36.7 C (98 F) 09/05/2020 1:00 PM SPRAY FOAM INSTALLER Respiratory Rate 12 08/02/2019 9:20 AM SPRAY FOAM INSTALLER Oxygen Saturation 97% 02/16/2024 2:07 PM CDT Inhaled Oxygen Concentration - - Weight 92.5 kg (204 lb) 02/16/2024 2:07 PM CDT Height 188 cm (6' 2) 02/16/2024 2:07 PM CDT Body Mass Index 26.19 02/16/2024 2:07 PM CDT Plan of Treatment Not on file Insurance [employer] Care Teams Fuel Distribution System Operator Relationship Specialty Start Date End Date Vik Villalba MD [address] [place] [address] PCP - General 11/06/16
--- OUTSIDE RECORDS SUMMARY | 2025-02-21 11:40 | XMS_ITS ---
Author Name DEONTE SO M.D. Address [address] [facility] [place] [address] Phone [phone] Organization [facility] ([facility] Care Team Providers Care Deckhand Oyster Dredge Name Role Phone DEONTE SO Unavailable [phone] Sukhwinder Cuevas Unavailable [phone] Vik Villalba Unavailable [phone] Reason for Referral Not Available Allergies, adverse [...] tive Time Current Smoking Status Former smoker 2 Sex Male History of Procedures Procedures Service Procedure code Service date Servicing provider Phone# Home visit for evaluation and management of new patient requiring medically appropriate examination and moderate level of medical decision making. If using time, at least 60 minutes [place] on enco [id number] 2024-11-09 No Data Available No Data Availa [...] Patient lives spouse. Closest daughter is in [place], [place]. He is independent with his care regarding ADL's, but relies on for other things as he has dementia. He does not use any form of assistive device for ambulation.
--- OUTSIDE RECORDS SUMMARY | 2025-02-21 11:40 | XMS_ITS | Clinical Summary ---
Author Organization [facility] [address] [facility] [address] Address [address] [place] [address] Care Team Providers Care Community Leader Name Role Phone Vik Villalba MD Primary [...] on file Legal Sex Male 7:29 PM CONVERTER OPERATOR Gender Identity Not on file Sexual Orientation Don't know 09/24/2021 9: 14 AM CONVERTER OPERATOR Sexual Orientation Straight 09/24/2021 9: 14 AM CONVERTER OPERATOR Obstetrics History Last Filed Vital Signs Vital Sign Reading Time Taken Comments Blood Pressure 138/86 02/16/2024 2:07 PM CDT Pulse 88 02/16/2024 2:07 PM CDT Temperature 36.7 C (98 F) 09/05/2020 1:00 PM CONVERTER OPERATOR Respiratory Rate 12 08/02/2019 9:20 AM CONVERTER OPERATOR Oxygen Saturation 97% 02/16/2024 2:07 PM CDT [...] 2024 07/03/2021, 11/05/2020, 10/15/2020 Influenza Vaccine (#1) 2025 DTaP/Tdap/Td Vaccine (2 - Td or Tdap) 02/13/2031 Insurance [facility] Care Teams Community Leader Relationship Specialty Start Date End Date Vik Villalba MD [address] [place] [address] PCP - General 11/06/16
--- NOTE | 2025-02-21 12:11 | ECG_ITS ---
Test Date: 2025-02-21 12:28:15 Measurements Intervals [place] Rate: 89 P: -78 IN: 156 QRS: -30 QRSD: 105 T: -12 QT: 374 QTc: 456 Interpretive Statements ECTOPIC ATRIAL RHYTHM BORDERLINE LEFT AXIS DEVIATION [QRS AXIS < -20] ABNORMAL RHYTHM ECG No previous ECG available for comparison Electronically Signed On 02-21-2025 12:57:09 CDT by Julio Trinh M.D.
--- OUTSIDE RECORDS SUMMARY | 2025-02-21 12:11 | XMS_ITS | Encounter Summary ---
Author Organization [facility] Address [address] [address] Care Team Providers Care Laundry Housekeeper Name Role Phone Vik Villalba MD Primary Care Prov ider Vik Villalba MD Primary Care Prov ider Encounter Details Date Type Department Care Team (Late st Contact Info) Description 02/11/2016 Orders Only [facility] ProviderMarisel MD [address] [place] [address] Social History Tobacco Use Types Packs/Day Years Used Date Smoking Tobacco: Former Cigarettes Q uit: 08/23/1969 Alcohol Use Standard Drinks/Week Comments Yes 0 (1 standard drink = 0.6 oz pur e alcohol) Sex and Gender Information Value Date Recorded Sex Assigned at Not on file Legal Sex Male 7:29 PM METALIZER Gender Identity Not on file Sexual Orientation Don't know 09/24/2021 9: 14 AM METALIZER Sexual Orientation Straight 09/24/2021 9: 14 AM METALIZER documented as of this encounter Plan of [...] on filedocumented in this encounter Care Teams Laundry Housekeeper Relationship Specialty Start Date End Date Vik Villalba MD [address] [place] [address] PCP - General 11/06/16 Vik Villalba MD [address] [place] [address] PCP - General 12/05/14 11/05/16 documented as of this encounter
--- OUTSIDE RECORDS SUMMARY | 2025-02-21 12:11 | XMS_ITS | Referral Summary ---
Author Organization [facility] [address] [facility] [address] Address [address] [place] [address] Care Team Providers Care Mold Tooler Name Role Phone Vik Villalba MD Primary [...] on file Legal Sex Male 7:29 PM LINUX CONSULTANT Gender Identity Not on file Sexual Orientation Don't know 09/24/2021 9: 14 AM LINUX CONSULTANT Sexual Orientation Straight 09/24/2021 9: 14 AM LINUX CONSULTANT Last Filed Vital Signs Vital Sign Reading Time Taken Comments Blood Pressure 138/86 02/16/2024 2:07 PM CDT Pulse 88 02/16/2024 2:07 PM CDT Temperature 36.7 C (98 F) 09/05/2020 1:00 PM LINUX CONSULTANT Respiratory Rate 12 08/02/2019 9:20 AM LINUX CONSULTANT Oxygen Saturation 97% 02/16/2024 2:07 PM CDT Inhaled Oxygen Concentration - - Weight 92.5 kg (204 lb) 02/16/2024 2:07 PM CDT Height 188 cm (6' 2) 02/16/2024 2:07 PM CDT Body Mass Index 26.19 02/16/2024 2:07 PM CDT Plan of Treatment Not on file Insurance [facility] Care Teams Mold Tooler Relationship Specialty Start Date End Date Vik Villalba MD [address] [place] [address] PCP - General 11/06/16
--- OUTSIDE RECORDS SUMMARY | 2025-02-21 12:11 | XMS_ITS | Clinical Summary ---
Author Organization [facility] Address [address] [place] [address] Care Team Providers Care Jira Administrator Name Role Phone Unavailable Primary Care Provider [...]
--- OUTSIDE RECORDS SUMMARY | 2025-02-21 12:11 | XMS_ITS ---
Author Name DEONTE SO M.D. Address [address] [facility] [place] [address] Phone [phone] Organization [facility] ([facility]) Care Team Providers Care Owner Oral Surgeon Name Role Phone DEONTE SO Unavailable [phone] Sukhwinder Cuevsa Unavailable [phone] Vik Villalba Unavailable [phone] Reason for Referral Not Available Allergies, adverse [...] least 60 [place] [id number] 2024-11-09 No Data Available No Data Availa [...] Patient lives spouse. Closest daughter is in [place], [place]. He is independent with his care regarding ADL's, but relies on for other things as he has dementia. He does not use any form of assistive device for ambulation.
--- OUTSIDE RECORDS SUMMARY | 2025-02-21 12:11 | XMS_ITS | Clinical Summary ---
Author Organization [facility] [address] [facility] [address] Address [address] [place] [address] Care Team Providers Care Manager Library Name Role Phone Vik Villalba MD Primary [...] on file Legal Sex Male 7:29 PM SALT CUTTER Gender Identity Not on file Sexual Orientation Don't know 09/24/2021 9: 14 AM SALT CUTTER Sexual Orientation Straight 09/24/2021 9: 14 AM SALT CUTTER Obstetrics History Last Filed Vital Signs Vital Sign Reading Time Taken Comments Blood Pressure 138/86 02/16/2024 2:07 PM CDT Pulse 88 02/16/2024 2:07 PM CDT Temperature 36.7 C (98 F) 09/05/2020 1:00 PM SALT CUTTER Respiratory Rate 12 08/02/2019 9:20 AM SALT CUTTER Oxygen Saturation 97% 02/16/2024 2:07 PM CDT [...] or Tdap) 02/13/2031 Insurance [facility] Care Teams Manager Library Relationship Specialty Start Date End Date Vik Villalba MD [address] [place] [address] PCP - General 11/06/16
[2025-02-21 12:23] LABS: Hematocrit 31.8 % (42.0-52.0); Hemoglobin 10.5 g/dL (14.0-18.0); Immature Granulocyte Percent A 0.6 % (0-0.5); Lymphocytes Absolute Auto 0.82 K/mm3 (0.9-3.2); Mean Corpuscular HGB Conc 33.0 g/dl (32-36); Mean Corpuscular Hemoglobin 30.3 pg (26-34); Mean Corpuscular Volume 91.6 fl (80-100); Nucleated Red Blood Cells Absolute Auto 0.000 K/mm3 (0.0-0.012); Nucleated Red Blood Cells Perc 0.0 % (0.0-0.2); Platelet Count Result 209 k/mm3 (150-375); Red Blood Count 3.47 M/mm3 (4.6-6.20); White Blood Count 14.1 K/mm3 (4.5-10.0)
[2025-02-21 12:41] LABS: Alanine Aminotransferase 16 U/L (6-50); Albumin Level 3.1 g/dL (3.5-5.1); Alkaline Phosphatase 62 U/L (38-126); Anion Gap 7 mmol/L (4-12); Aspartate Amino Transferase 28 U/L (17-59); Bilirubin,Total 0.8 mg/dL (0.2-1.3); Blood Urea Nitrogen 22 mg/dL (9-20); Calcium 8.6 mg/dL (8.4-10.2); Carbon Dioxide 25 mmol/L (22-30); Chloride 105 mmol/L (98-107); Estimated CRCL calculation 36 ml/min; Estimated Glomerular Filt Rate 41; Glucose 134 mg/dL (65-110); Magnesium 1.8 mg/dL (1.6-2.3); Potassium 4.1 mmol/L (3.4-5.0); Sodium 137 mmol/L (137-145); Total Protein 6.3 g/dL (6.3-8.2)
--- NOTE | 2025-02-21 12:45 | ED_ITS ---
HPI - Recheck/Abnormal Lab/Rx General Chief Complaint: Recheck/Abnormal Lab/Rx Stated Complaint: frequent falls Time Seen by Provider: 02/21/25 12:01 History of Present Illness HPI narrative: 89-year-old male with history of urinary tract infections and dementia presenting to the emergency department for frequent falls. Patient was noted to have low blood pressure readings and went to his regular doctor about this several days ago. They ordered some blood tests. Patient's family states that his family practitioner called him today to go the hospital for evaluation. Patient has been falling frequently without any associated head trauma or loss of consciousness. He is acting as baseline mentation which is at bedside states seems to be from dementia. He has a history of recurrent urinary tract infections and was recently seen and treated for 1 back in November. Patient himself has no acute complaints aside from low blood pressure readings. Patient denies any headache, vision changes, chest pain, abdominal pain, back pain, dysuria. He does have various scrapes around his bilateral lower extremities and hands from frequent falls but no visible head trauma. No anticoagulated use per review of the EMR. Related Data Home Medications ?Medication ?Instructions ?Recorded ?Confirmed ?Last Taken ?Type ascorbic acid (vitamin C) 1,000 mg 1 g PO DAILY 09/03/21 02/21/25 02/20/25 History tablet aspirin 81 mg tablet,delayed 81 mg PO DAILY 09/03/21 02/21/25 02/20/25 History release (Adult Low Dose Aspirin) multivitamin 1 tablet PO DAILY 09/03/21 02/21/25 02/20/25 History rosuvastatin 20 mg tablet 20 mg PO DAILY 11/13/22 02/21/25 02/20/25 History mecobalamin (vitamin B12) 1,000 1,000 mcg PO DAILY 04/07/23 02/21/25 02/20/25 History mcg chewable tablet (B12 Active) Allergies Allergy/AdvReac Type Severity Reaction Status Date / Time bupropion AdvReac Intermediate tremors Verified 02/21/25 11:54 rosuvastatin AdvReac Mild diarrhea Verified 02/21/25 11:54 temazepam AdvReac Mild Unknown Verified 02/21/25 11:54 [facility] Past Medical History Medical History Traumatic amputation of second toe osteomyelitis Surgical History Surgical History History of aortic valve replacement (2013) History of inguinal hernia repair (2010) Status post reverse arthroplasty of left shoulder (2015) 03/07 Hx laparoscopic cholecystectomy (2010) Family History Family History Father Cancer Mother Cancer Daughter Lung cancer Social History Social History Smoking status: Former smoker Alcohol intake: current Drinks per week: 10 Substance use: never Substance use type: does not use Lack of Transportation: No Lack of Food: Never True Current Housing: I Have Housing Concerned About Future Housing: No Difficulty Paying Gas/Electric Bills: No Difficulty Paying for Meds: No Currently Unemployed: No Education: Master's Degree or Higher Difficulty w/ Childcare or Family Care: No Living arrangements: with family Occupation/Education: retired Gender identity (if verbalized by the patient): Male Sexual Orientation (if Verbalized by the Patient): Straight or Heterosexual Spiritual care concerns: No Agree to blood products: Yes Course Vital Signs Vital signs: Vital Signs Temperature 37.0 C 02/21/25 11:49 Pulse Rate 97 02/21/25 11:49 Respiratory Rate 14 02/21/25 11:49 Blood Pressure 115/63 02/21/25 11:49 Pulse Oximetry 98 02/21/25 11:49 Oxygen Delivery Room Air 02/21/25 11:49 Temperature 37.1 C 02/21/25 20:19 Pulse Rate 78 02/21/25 20:19 Respiratory Rate 18 02/21/25 20:19 Blood Pressure 109/56 L 02/21/25 20:19 Pulse Oximetry 97 02/21/25 20:19 Oxygen Delivery Room Air 02/21/25 16:56 MDM - Recheck/Abnormal Lab/Rx MDM Narrative Medical decision making narrative: 89-year-old male with history of urinary tract infections and dementia presenting to the emergency department for frequent falls. Patient was noted to have low blood pressure readings and went to his regular doctor about this several days ago. They ordered some blood tests. Patient's family states that his family practitioner called him today to go the hospital for evaluation. Patient has been falling frequently without any associated head trauma or loss of consciousness. He is acting as baseline mentation which is at bedside states seems to be from dementia. He has a history of recurrent urinary tract infections and was recently seen and treated for 1 back in November. Patient himself has no acute complaints aside from low blood pressure readings. Patient denies any headache, vision changes, chest pain, abdominal pain, back pain, dysuria. He does have various scrapes around his bilateral lower extremities and hands from frequent falls but no visible head trauma. No anticoagulated use per review of the EMR. Patient has an unremarkable physical examination aside from some soft blood pressure readings. At 1 point his blood pressure in the examination room was 89/60. This could contribute to his frequent falls or could also be a potential side towards other underlying pathology such as dehydration, intravascular volume depletion, inflammation, infection or sepsis. Overall patient is as baseline mentation not ill-appearing. He was given 30 cc/kg bolus of lactated Ringer's given his low blood pressure readings and lactic acid and blood cultures were drawn as well as urinalysis, chest x-ray. CT of the head was ordered. Laboratory studies ordered. He is currently afebrile without any tachycardia or hypoxia. Will obtain laboratory studies and further evaluation. Workup reveals a leukocytosis of 14.1, hemoglobin 10.5, platelets of 209. Electrolytes are unremarkable, he does have an elevated BUN and creatinine above his baseline consistent with acute kidney injury. Lactic acid is negative. Glucose 134. LFTs negative. TSH just under the lower limit of normal but normal T4 and T3 reflex. Urinalysis has urinary tract infection signs of bacteria, white cells and leukocyte esterase. Chest x-ray shows bibasilar atelectasis. CT of the head shows no acute intracranial findings. EKG shows no ST segment elevations or depressions. Patient started on Rocephin for urinary tract infection. At this time patient will be admitted to the hospital for acute kidney injury and urinary tract infection. His blood pressure did improve after fluid resuscitation. Spoke to the hospitalist team and we went over patient's clinical exam, historical features, imaging results and plan of care with antibiotics and fluids. Patient was admitted to the telemetry monitored bed at this time. Family members made aware at bedside. Medical Records Attestation: I reviewed the patient's medical records. Lab Data Attestation: I reviewed the patient's lab results. 02/21/25 12:18 02/21/25 12:18 Labs: Lab Results 02/21/25 02/21/25 02/21/25 Range/Units 12:18 12:46 12:50 WBC 14.1 H (4.5-10.0) K/mm3 RBC 3.47 L (4.6-6.20) M/mm3 Hgb 10.5 L (14.0-18.0) g/dL Hct 31.8 L (42.0-52.0) % MCV 91.6 (80-100) fl MCH 30.3 (26-34) pg MCHC 33.0 (32-36) g/dl RDW 13.4 (11.5-14.5) % Plt Count 209 (150-375) k/mm3 MPV 9.8 (7.4-10.4) fl Immature Gran % (Auto) 0.6 H (0-0.5) % Neut % (Auto) 85.0 H (45.5-73.1) % Lymph % (Auto) 5.8 L (18.3-44.2) % [place] % (Auto) 8.1 (2.6-8.5) % Eos % (Auto) 0.1 (0-4.4) % Baso % (Auto) 0.4 (0.2-1.2) % Lymph # (Auto) 0.82 L (0.9-3.2) K/mm3 [place] # (Auto) 1.1 H (0.1-0.6) K/mm3 Eos # (Auto) 0.0 (0-0.3) K/mm3 Baso # (Auto) 0.1 (0.0-0.1) K/mm3 Abs Immat Gran (auto) 0.08 H (0.00-0.031) K/mm3 Absolute Neuts (auto) 12.0 H (1.3-6.7) K/mm3 Absolute Nucleated RBC 0.000 (0.0-0.012) K/mm3 Nucleated RBC % 0.0 (0.0-0.2) % Sodium 137 (137-145) mmol/L Potassium 4.1 (3.4-5.0) mmol/L Chloride 105 (98-107) mmol/L Carbon Dioxide 25 (22-30) mmol/L Anion Gap 7 (4-12) mmol/L BUN 22 H (9-20) mg/dL Creatinine 1.59 H (0.7-1.3) mg/dL Estim Creat Clear Calc 36 ml/min Estimated GFR 41 L (59 - ) Glucose 134 H (65-110) mg/dL Lactic Acid 1.8 (0.7-2.0) mmol/L Calcium 8.6 (8.4-10.2) mg/dL Magnesium 1.8 (1.6-2.3) mg/dL Total Bilirubin 0.8 (0.2-1.3) mg/dL AST 28 (17-59) U/L ALT 16 (6-50) U/L Alkaline Phosphatase 62 (38-126) U/L C-Reactive Protein 2.7 H (<1.0) mg/dL Total Protein 6.3 (6.3-8.2) g/dL Albumin 3.1 L (3.5-5.1) g/dL TSH (Reflex) 0.460 L (0.465-4.68) uIU/mL Free T4 1.29 (0.78-2.19) ng/dL Total T3 1.06 (0.82-1.58) NG/ML Urine Color Yellow (Yellow) Urine Appearance Turbid H (Clear) Urine pH 5.5 (5.0-9.0) Ur Specific [place] 1.015 (1.001-1.035) Urine Protein 2+ H (Negative) mg/dL Urine Glucose (UA) Negative (Negative) mg/dL Urine Ketones Trace H (Negative) mg/dL Ur Blood (Man) 1+ H (Negative) Urine Nitrate Negative (Negative) Urine Bilirubin Negative (Negative) Urine Urobilinogen 1.0 (<2.0) mg/dL Add Ur Microanalysis Reviewed Leukocyte Esterase Rfl 3+ H (Negative) LILI/UL Urine RBC 0-2 (0-2) /hpf Urine WBC >100 H (0-3) /hpf Ur Squamous Epith Cells None seen (Few) /hpf Urine Bacteria 4+ H /hpf Urine Casts 3-5 Imaging Data Attestation: I personally reviewed and interpreted this imaging study as follows: My impression: Impressions Chest X-Ray 02/21/25 13:15 IMPRESSION: 1. Small lung volumes with mild bibasilar atelectasis. Head CT 02/21/25 13:42 IMPRESSION: 1. 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 No acute intracranial process. 2. Age-related changes including moderate diffuse volume loss and mild scattered white matter hypoattenuation consistent with chronic small vessel ischemic disease. Critical Care Time Critical Care Time Critical Care Time: Yes Total Critical Care Time: 35 Discharge Plan Discharge Clinical Impression: Acute kidney injury, Frequent falls, Blood pressure abnormally low Urinary tract infection Qualifiers: Urinary tract infection type: acute cystitis Hematuria presence: without hematuria Qualified Code(s): N30.00 - Acute cystitis without hematuria Patient Disposition: Still a Patient Condition: Stable
[2025-02-21] MEDS: LACTATED RINGERS 1,000 ML 999 ML IV CONT ×2 (12:57)
[2025-02-21 13:10] LABS: CRP 2.7 mg/dL (<1.0)
[2025-02-21 13:12] LABS: Add Urine Microscopic? YES; Appearance Urine Turbid (Clear); Glucose Urine UA Negative (Negative); Leukocyte Esterase Ur 3+ LEU/UL (Negative); Need Manual Microscopic Reviewed; Nitrate Urine Negative (Negative); Specific Grav Ur 1.015 (1.001-1.035)
[2025-02-21 13:31] LABS: Thyroid Stimulating Hormone Reflex 0.460 uIU/mL (0.465-4.68)
[2025-02-21 14:10] LABS: Free T4 Free Thyroxine Reflex 1.29 ng/dL (0.78-2.19)
[2025-02-21] MEDS: LACTATED RINGERS 600 ML 999 ML IV CONT (14:10)
[2025-02-21] MEDS: LACTATED RINGERS 1,000 ML 125 ML IV CONT ×2 (14:16→23:07)
--- NOTE | 2025-02-21 15:11 | PC.NURSE ---
pt as stepped out for a bit. this RN applied a bed alarm pad under the pt
[2025-02-21 15:42] LABS: Total Triiodothyronine (T3) 1.06 NG/ML (0.82-1.58)
--- NOTE | 2025-02-21 15:44 | PM.IMHP ---
H&P: HPI History of Present Illness Date/Time: 02/21/25 15:44 Chief Complaint: Low BP Narrative: 89 y/o M with PMH of dementia, BPH, and hyperlipidemia (based off patient's outside meds, unable to confirm with patient or ) presents here with low blood pressure readings. The patient presents here from home on 02/21 for further evaluation of low blood pressure readings at home. He was initially evaluated by his PCP on 02/19, at the time he reported 5 falls home within the last 2 weeks and, lower blood pressure, and weight loss. At that time and was recommended that he push fluids/ hydration, begin a more liberal salt diet, change positions slowly, and work away from utilizing Ativan for his generalized anxiety. he was instructed to follow up in 1 week. He had a basic lab work drawn which showed stable anemia, no significant electrolyte derangements, and his renal function was at baseline. Patient's family then called his PCP today with recurrent low blood pressure readings. Practitioner advised them to come to the hospital for further evaluation. Upon further investigation, the patient denies any trauma or loss of consciousness associated with his recurrent falls. He is currently denying chest pain, shortness of breath, palpitations, nausea, vomiting, diarrhea, fever, chills, dysuria, urinary frequency, urinary hesitancy, or abdominal pain. Of note, the patient has a history of recurrent UTIs with last occurrence in November. Patient poor historian. Initial VS at presentation: 98.6? F, HR 97, R 14, 115/63, and 98% on RA. ED workup showed: WBC 14.1, hemoglobin 10.5, creatinine 1.59 and GFR 41 (1.24 and GFR 56 on 02/19 ), lactic 1.8, CRP 2.7, TSH 0.46 with normal T4/T3, and UA consistent with UTI. CXR showed small lung volumes with mild bibasilar atelectasis. 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 Review of Systems Review of Systems: All systems reviewed & are unremarkable except as noted in HPI and below PMFSH Past Medical History Medical History Traumatic amputation of second toe osteomyelitis Surgical History Surgical History History of aortic valve replacement (2013) History of inguinal hernia repair (2010) Status post reverse arthroplasty of left shoulder (2015) 03/07 Hx laparoscopic cholecystectomy (2010) Family History Family History Father Cancer Mother Cancer Daughter Lung cancer Social History Social History Smoking status: Former smoker Alcohol intake: current Drinks per week: 10 Substance use: never Substance use type: does not use Lack of Transportation: No Lack of Food: Never True Current Housing: I Have Housing Concerned About Future Housing: No Difficulty Paying Gas/Electric Bills: No Difficulty Paying for Meds: No Currently Unemployed: No Education: Master's Degree or Higher Difficulty w/ Childcare or Family Care: No Living arrangements: with family Occupation/Education: retired Gender identity (if verbalized by the patient): Male Sexual Orientation (if Verbalized by the Patient): Straight or Heterosexual Spiritual care concerns: No Agree to blood products: Yes Meds Home Medications and Allergies Home Medications ?Medication ?Instructions ?Recorded ?Confirmed ?Type ascorbic acid (vitamin C) 1,000 mg 1 g PO DAILY 09/03/21 02/21/25 History tablet aspirin 81 mg tablet,delayed 81 mg PO DAILY 09/03/21 02/21/25 History release (Adult Low Dose Aspirin) multivitamin 1 tablet PO DAILY 09/03/21 02/21/25 History rosuvastatin 20 mg tablet 20 mg PO DAILY 11/13/22 02/21/25 History mecobalamin (vitamin B12) 1,000 1,000 mcg PO DAILY 04/07/23 02/21/25 History mcg chewable tablet (B12 Active) fluticasone propionate 50 2 spray intranasal DAILY #48 grams 03/08/24 02/21/25 Rx mcg/actuation nasal spray,suspension meloxicam 15 mg tablet See Rx Instructions .Route 04/24/24 02/21/25 Rx .COMPLEX #90 tabs memantine 10 mg tablet 10 mg PO BID #180 tabs 10/12/24 02/21/25 Rx lorazepam 0.5 mg tablet 0.5 mg PO QHS PRN anxiety #30 tabs 12/17/24 02/21/25 Rx donepezil 10 mg tablet 10 mg PO QHS #90 tabs 01/15/25 02/21/25 Rx tamsulosin 0.4 mg capsule 0.4 mg PO DAILY #90 caps 01/15/25 02/21/25 Rx trazodone 100 mg tablet 100 mg PO QHS #90 tabs 01/15/25 02/21/25 Rx pantoprazole 40 mg tablet,delayed See Rx Instructions .Route 02/02/25 02/21/25 Rx release .COMPLEX #180 tabs Allergies Allergy/AdvReac Type Severity Reaction Status Date / Time bupropion AdvReac Intermediate tremors Verified 02/21/25 11:54 rosuvastatin AdvReac Mild diarrhea Verified 02/21/25 11:54 temazepam AdvReac Mild Unknown Verified 02/21/25 11:54 Vital Signs Vital Signs - 24 hr 02/21/25 11:49 02/21/25 12:19 02/21/25 12:30 Temperature 98.6 F Pulse Rate 97 91 90 Respiratory Rate 14 17 13 Blood Pressure 115/63 95/52 L 96/53 L Pulse Oximetry 98 96 96 Oxygen Delivery Room Air 02/21/25 12:36 02/21/25 12:52 02/21/25 12:53 Temperature 98.2 F Pulse Rate 88 88 92 Respiratory Rate 15 22 H Blood Pressure 91/51 L 107/64 Pulse Oximetry 95 91 Oxygen Delivery 02/21/25 13:23 02/21/25 13:30 02/21/25 13:32 Temperature Pulse Rate 88 84 85 Respiratory Rate 26 H 18 19 Blood Pressure 101/65 93/61 L 108/60 Pulse Oximetry 97 99 98 Oxygen Delivery 02/21/25 13:45 02/21/25 14:12 Temperature Pulse Rate 81 82 Respiratory Rate 17 19 Blood Pressure 110/67 118/62 Pulse Oximetry 100 98 Oxygen Delivery Exam Const: General: comfortable and no acute distress Other: , male, elderly, nontoxic appearance HENMT: Face/Nose/Sinus: Normal nares present Mouth: Yes moist mucous membranes Eyes: General: appearance normal, both eyes and all related structures Sclera: sclerae normal Pupils: Equal, round and reactive pupils present EOM: EOMs intact bilaterally Resp: Effort & Inspection: normal respiratory effort Auscultation: clear to auscultation bilaterally Cardio: Rate: regular rate Rhythm: regular rhythm Other: S1-S2 present without murmur, rub, ectopy GI: Other: Abdomen soft, nondistended, nontender. Normoactive bowel sounds in all quadrants. Skin: General skin exam: normal color and no rashes or lesions noted Wounds: no wounds Neuro: Speech: normal speech Motor exam (neuro): 5/5 motor strength present throughout Sensory Exam: normal sensation Other: A/O to self, place, reported it was 2023 or 2024. Poor situational recall. Though patient is able to answer most orientation question, he has occasional disorganized thought content evidenced by off topic questions. Extrem: General: normal to inspection Psych: Mental Status: mental status grossly normal Affect: normal affect Other: fair to poor insight and judgment at present, pleasant H&P: Results Labs Labs: Short CBC 02/21/25 Range/Units 12:18 WBC 14.1 H (4.5-10.0) K/mm3 Hgb 10.5 L (14.0-18.0) g/dL Hct 31.8 L (42.0-52.0) % Plt Count 209 (150-375) k/mm3 BMP 02/21/25 12:18 Sodium 137 Potassium 4.1 Chloride 105 Carbon Dioxide 25 BUN 22 H Creatinine 1.59 H Glucose 134 H Calcium 8.6 Liver Function 02/21/25 Range/Units 12:18 Total Bilirubin 0.8 (0.2-1.3) mg/dL AST 28 (17-59) U/L ALT 16 (6-50) U/L Alkaline Phosphatase 62 (38-126) U/L Albumin 3.1 L (3.5-5.1) g/dL Urine 02/21/25 Range/Units 12:50 Urine Color Yellow (Yellow) Urine Appearance Turbid H (Clear) Urine pH 5.5 (5.0-9.0) Ur Specific [place] 1.015 (1.001-1.035) Urine Protein 2+ H (Negative) mg/dL Urine Glucose (UA) Negative (Negative) mg/dL Assessment and Plan Assessment and plan (1) Sepsis: Qualifiers: Acute renal failure type: unspecified Sepsis acute organ dysfunction status: with acute organ dysfunction Sepsis type: sepsis due to unspecified organism Severe sepsis acute organ dysfunction type: acute renal failure Severe sepsis shock status: without septic shock Qualified Code(s): A41.9 - Sepsis, unspecified organism; R65.20 - Severe sepsis without septic shock; N17.9 - Acute kidney failure, unspecified Code(s): A41.9 - Sepsis, unspecified organism Status: Acute Assessment and Plan: - meets SIRS criteria: HR >90, WBC >12 - lactic acid: 1.8 - 30 mL/kg bolus given in ED - suspected source: UTI - started on ceftriaxone - blood cultures drawn on 02/21, follow - UA consistent with UTI, see below and CXR showed small lung volumes with mild bibasilar atelectasis, no pneumonia appreciated - monitor hemodynamic stability (2) UTI (urinary tract infection): Qualifiers: Hematuria presence: without hematuria Urinary tract infection type: acute cystitis Qualified Code(s): N30.00 - Acute cystitis without hematuria Code(s): N39.0 - Urinary tract infection, site not specified Status: Acute Assessment and Plan: - UA: turbid, 2+ protein, trace ketones, 1+ blood, 3+ leuk esterase, greater than 100 WBC, no epithelial cells and 4+ bacteria - UC pending - previous micro reviewed, patient grew pansensitive E coli on 12/18/2024 - started on Ceftriaxone on 02/21 (3) NHUNG (acute kidney injury): Code(s): N17.9 - Acute kidney failure, unspecified Status: Acute Assessment and Plan: - baseline creatinine 1.1-1.2, currently 1.59 - check renal ultrasound - UA consistent with UTI - IV fluids: 2.5L bolus -> 125 mL/hr - monitor I&Os Suspect NHUNG secondary to UTI. Will rehydrate and start antibiotics. If no improvement in renal function, consider further workup. (4) Recurrent falls: Code(s): R29.6 - Repeated falls Status: Acute Assessment and Plan: - Has been experiencing recurrent falls at home. Family and patient open to assessment for acute rehab services versus placement. May be worsened due to acute UTI. Patient at/family also noting patient has had low blood pressures at home. Will rehydrate and check orthostatics. PT/OT/care coordination for d/c planning abx for UTI IV fluids, check orthostatics - fall precautions (5) Hypotension: Code(s): I95.9 - Hypotension, unspecified Status: Acute Assessment and Plan: - BP upon arrival 115/63, however did have 4 readings with a systolic in the 90s. - Plan to rehydrate and check orthostatics daily - reviewed home medications, not currently on any anti-hypertensive medications or diuretics (6) Dementia: Qualifiers: Dementia behavioral or psychological symptom: with anxiety Dementia severity: unspecified severity Dementia type: unspecified type Qualified Code(s): F03.94 - Unspecified dementia, unspecified severity, with anxiety Code(s): F03.90 - Unspecified dementia, unspecified severity, without behavioral disturbance, psychotic disturbance, mood disturbance, and anxiety Status: Chronic Assessment and Plan: - continue home medication(s): donepezil, memantine - working to decrease Ativan for anxiety outpatient as this may be contributing factor to patient's confusion, will hold inpatient. Continue trazodone. Plan Diet: regular GI Prophylaxis: not currently applicable DVT Prophylaxis: SCDs IV fluids: 2.5L bolus -> 125 mL/hr Lines/Tubes: Peripheral IV Code Status: full code Quality VTE Prophylaxis VTE prophylaxis: mechanical ordered Hospitalist [facility] Advance Care Plan I have confirmed that the patient's Advanced Care Plan is present, code status is documented, or surrogate decision maker is listed in patient medical record.: Yes Medication Reconciliation I have utilized all available resources to obtain, update and review the patients current medications (includes all prescriptions, OTC, herbals, cannabis, and nutritional supplements).: Yes
--- NOTE | 2025-02-21 18:53 | ADMGEN ---
This patient, David Azevedo, was admitted to Medical Room 255-. Patient/family oriented to hospital policies and general routines including ID bracelet, bed and alarms, visiting hours, pain management, procedures, bathroom and other care routines, personal items, smoking policy, room service/diet, and visiting hours. Information on how to activate the Rapid Response Team has been discussed. Patient/Family are encouraged to report perceived risks to care and to ask questions if they do not understand what they are told or what they should do.
--- NOTE | 2025-02-21 20:17 | PC.NURSE ---
Attempted to contact spouse, Char Azevedo , to complete admission. Pt very forgetful/confused at this time. Call had an automated message that stated the number dialed either doesn't exist or no longer in service. Attempted to call daughter Marina Gloria and call sent to voice mail at this time. Voice mail left for daughter to call this nurse back to complete admission.
[2025-02-21] MEDS: DONEPEZIL HCL 10 MG TABLET PO (20:38)
[2025-02-21] MEDS: MEMANTINE 10 MG TABLET PO (20:38)
[2025-02-21] MEDS: ACETAMINOPHEN 325 MG TABLET 650 MG PO (23:08)
[2025-02-22] VITALS (14 sets, daily range): BP systolic 106–134; BP diastolic 51–63; PULSE 66–108; RESP 12–20; TEMP 36.4–36.8; O2SAT 93–100; BMI 22.9
[2025-02-22 05:08] LABS: Hematocrit 31.9 % (42.0-52.0); Hemoglobin 10.4 g/dL (14.0-18.0); Immature Granulocyte Percent A 0.5 % (0-0.5); Lymphocytes Absolute Auto 1.02 K/mm3 (0.9-3.2); Mean Corpuscular HGB Conc 32.6 g/dl (32-36); Mean Corpuscular Hemoglobin 30.7 pg (26-34); Mean Corpuscular Volume 94.1 fl (80-100); Nucleated Red Blood Cells Absolute Auto 0.000 K/mm3 (0.0-0.012); Nucleated Red Blood Cells Perc 0.0 % (0.0-0.2); Platelet Count Result 181 k/mm3 (150-375); Red Blood Count 3.39 M/mm3 (4.6-6.20); White Blood Count 10.1 K/mm3 (4.5-10.0)
[2025-02-22 05:19] LABS: Alanine Aminotransferase 13 U/L (6-50); Albumin Level 2.9 g/dL (3.5-5.1); Alkaline Phosphatase 52 U/L (38-126); Anion Gap 5 mmol/L (4-12); Aspartate Amino Transferase 24 U/L (17-59); Bilirubin,Total 1.2 mg/dL (0.2-1.3); Blood Urea Nitrogen 19 mg/dL (9-20); Calcium 8.4 mg/dL (8.4-10.2); Carbon Dioxide 29 mmol/L (22-30); Chloride 105 mmol/L (98-107); Estimated CRCL calculation 44 ml/min; Estimated Glomerular Filt Rate 55; Glucose 101 mg/dL (65-110); Potassium 4.1 mmol/L (3.4-5.0); Sodium 139 mmol/L (137-145); Total Protein 6.0 g/dL (6.3-8.2)
[2025-02-22] MEDS: LACTATED RINGERS 1,000 ML 125 ML IV CONT ×2 (06:33→16:10)
[2025-02-22] MEDS: MEMANTINE 10 MG TABLET PO ×2 (10:06→20:14)
[2025-02-22] MEDS: TAMSULOSIN HCL 0.4 MG CAPSULE PO (10:06)
[2025-02-22] MEDS: MULTIVITAMINS THERAPEUTIC TAB (*BKC) 1 TABLET PO (10:06)
[2025-02-22] MEDS: MELOXICAM 7.5 MG TABLET 15 MG PO (10:06)
[2025-02-22] MEDS: ASCORBIC ACID 500 MG TABLET 1000 MG PO (10:06)
[2025-02-22] MEDS: PANTOPRAZOLE 40 MG TABLET PO ×2 (10:06→20:14)
[2025-02-22] MEDS: CYANOCOBALAMIN 1,000 MCG TABLET 1000 MCG PO (10:06)
[2025-02-22] MEDS: FLUTICASONE PROPIONATE 0.05% NA SPR 16 GM BTL (*BKC) 2 SPRAY NASAL (10:07)
[2025-02-22] MEDS: ASPIRIN 81 MG ENTERIC TABLET PO (10:07)
--- NOTE | 2025-02-22 11:33 | PC.NURSE ---
RN confirmed allergy of Rosuvastatin with patient and patient's SO. Medication was in morning administration. RN did not give and called pharmacy to get it removed.
--- NOTE | 2025-02-22 12:49 | PC.NURSE ---
RN updated bedside and updated patient's POA and daughter.
--- NOTE | 2025-02-22 13:04 | P.PNIM_ITS ---
Progress Note: A&P Assessment and Plan (1) Sepsis: Qualifiers: Sepsis type: sepsis due to unspecified organism Sepsis acute organ dysfunction status: with acute organ dysfunction Severe sepsis acute organ dysfunction type: acute renal failure Acute renal failure type: unspecified Severe sepsis shock status: without septic shock Qualified Code(s): A41.9 - Sepsis, unspecified organism; R65.20 - Severe sepsis without septic shock; N17.9 - Acute kidney failure, unspecified Code(s): A41.9 - Sepsis, unspecified organism Status: Acute Assessment and Plan: * meets SIRS criteria: HR >90, WBC >12 * lactic acid: 1.8 * 30 mL/kg bolus given in ED * suspected source: UTI * started on ceftriaxone * blood cultures drawn on 02/21, still pending * UA consistent with UTI, see below and CXR showed small lung volumes with mild bibasilar atelectasis, no pneumonia appreciated * Chest XR: Small lung volumes with increased initial pattern and bronchial wall thickening in both lungs with lower lung predominance. Differential would include mild pulmonary edema, bronchitis/pneumonia or reactive airway disease/asthma. * monitor hemodynamic stability * 02/22: WBC improving, 10.1 today down from 14.1 (2) UTI (urinary tract infection): Qualifiers: Urinary tract infection type: acute cystitis Hematuria presence: without hematuria Qualified Code(s): N30.00 - Acute cystitis without hematuria Code(s): N39.0 - Urinary tract infection, site not specified Status: Acute Assessment and Plan: * UA: turbid, 2+ protein, trace ketones, 1+ blood, 3+ leuk esterase, greater than 100 WBC, no epithelial cells and 4+ bacteria * UC pending * previous micro reviewed, patient grew pansensitive E coli on 12/18/2024 * started on Ceftriaxone on 02/21 (3) NHUNG (acute kidney injury): Code(s): N17.9 - Acute kidney failure, unspecified Status: Acute Assessment and Plan: * baseline creatinine 1.1-1.2, currently 1.59 * check renal ultrasound * UA consistent with UTI * IV fluids: 2.5L bolus -> 125 mL/hr * monitor I&Os * Suspect NHUNG secondary to UTI. Will rehydrate and start antibiotics. If no improvement in renal function, consider further workup. (4) Recurrent falls: Code(s): R29.6 - Repeated falls Status: Acute Assessment and Plan: * Has been experiencing recurrent falls at home. Family and patient open to assessment for acute rehab services versus placement. May be worsened due to acute UTI. Patient at/family also noting patient has had low blood pressures at home. Will rehydrate and check orthostatics. * PT/OT/care coordination for d/c planning * Abx for UTI * IV fluids, check orthostatics * fall precautions (5) Hypotension: Code(s): I95.9 - Hypotension, unspecified Status: Acute Assessment and Plan: * BP upon arrival 115/63, however did have 4 readings with a systolic in the 90s. * Plan to rehydrate and check orthostatics daily * reviewed home medications, not currently on any anti-hypertensive medications or diuretics (6) Dementia: Qualifiers: Dementia type: unspecified type Dementia severity: unspecified severity Dementia behavioral or psychological symptom: with anxiety Qualified Code(s): F03.94 - Unspecified dementia, unspecified severity, with anxiety Code(s): F03.90 - Unspecified dementia, unspecified severity, without behavioral disturbance, psychotic disturbance, mood disturbance, and anxiety Status: Chronic Assessment and Plan: * continue home medication(s): donepezil, memantine * working to decrease Ativan for anxiety outpatient as this may be contributing factor to patient's confusion, will hold inpatient. * Continue trazodone. Plan Diet: regular GI Prophylaxis: not currently applicable DVT Prophylaxis: SCDs IV fluids: 2.5L bolus -> 125 mL/hr Lines/Tubes: Peripheral IV Code Status: full code Subjective Date/time seen: 02/22/25 13:04 Interval history: 89 y/o M with PMH of dementia, BPH, and hyperlipidemia (based off patient's outside meds, unable to confirm with patient or ) presents here with low blood pressure readings. 02/22/2025 Pt sitting comfortably in bed at time of examination. Accompanied by . Pt has no complaints as of this time. Imagine so far has been reassuring. Leukocytosis and kidney function improving. Remains afebril, non-tachycardic and non-tachypneic. Bloodwork is reassuring. Continue IVF hydration along with IV abx. Will plan to have pt work with PT/OT for discharge planning. Contniue to follow /[facility]. Review of Systems Review of Systems: All systems reviewed & are unremarkable except as noted in HPI and below Exam Narrative: A/O to self, place, reported it was 2023 or 2024. Poor situational recall. Asking off the wall questions. Const: General: comfortable and no acute distress Other: , male, elderly, nontoxic appearance HENMT: Face/Nose/Sinus: Normal nares present Mouth: Yes moist mucous membranes Eyes: General: appearance normal, both eyes and all related structures Sclera: sclerae normal Pupils: Equal, round and reactive pupils present EOM: EOMs intact bilaterally Resp: Effort & Inspection: normal respiratory effort Auscultation: clear to auscultation bilaterally Cardio: Rate: regular rate Rhythm: regular rhythm Other: S1-S2 present without murmur, rub, ectopy GI: Other: Abdomen soft, nondistended, nontender. Normoactive bowel sounds in all quadrants. Skin: General skin exam: normal color and no rashes or lesions noted Wounds: no wounds Neuro: Cranial nerves: Yes Equal, round and reactive pupils present Speech: normal speech Motor exam (neuro): 5/5 motor strength present throughout Sensory Exam: normal sensation Other: A/O to self, place, reported it was 2023 or 2024. Poor situational recall. Though patient is able to answer most orientation question, he has occasional disorganized thought content evidenced by off topic questions. Extrem: General: normal to inspection Psych: Mental Status: mental status grossly normal Affect: normal affect Other: fair to poor insight and judgment at present, pleasant Objective Data Vital Signs Vital Signs: Vital Signs - 24 hr 02/21/25 13:23 02/21/25 13:30 02/21/25 13:32 Temperature Pulse Rate 88 84 85 Respiratory Rate 26 H 18 19 Blood Pressure 101/65 93/61 L 108/60 Pulse Oximetry 97 99 98 Oxygen Delivery 02/21/25 13:45 02/21/25 14:12 02/21/25 14:30 Temperature Pulse Rate 81 82 80 Respiratory Rate 17 19 21 H Blood Pressure 110/67 118/62 119/68 Pulse Oximetry 100 98 100 Oxygen Delivery 02/21/25 15:00 02/21/25 15:30 02/21/25 16:00 Temperature Pulse Rate 92 82 87 Respiratory Rate 24 H 17 14 Blood Pressure 142/71 H 113/62 110/71 Pulse Oximetry 95 98 100 Oxygen Delivery 02/21/25 16:30 02/21/25 16:56 02/21/25 18:01 Temperature Pulse Rate 84 80 Respiratory Rate 20 15 Blood Pressure 114/56 L 120/56 L Pulse Oximetry 100 100 98 Oxygen Delivery Room Air 02/21/25 20:00 02/21/25 20:00 02/21/25 20:00 Temperature 98.8 F Pulse Rate 78 83 Respiratory Rate 18 Blood Pressure 109/56 L Pulse Oximetry 97 Oxygen Delivery Room Air 02/21/25 20:03 02/21/25 20:06 02/21/25 20:19 Temperature 98.8 F 98.8 F 98.8 F Pulse Rate 89 95 78 Respiratory Rate 18 18 18 Blood Pressure 121/82 114/64 109/56 L Pulse Oximetry 98 98 97 Oxygen Delivery 02/21/25 22:00 02/22/25 00:00 02/22/25 04:00 Temperature 98.8 F Pulse Rate 81 72 66 Respiratory Rate 18 Blood Pressure 138/56 L Pulse Oximetry 97 Oxygen Delivery 02/22/25 05:22 02/22/25 08:00 02/22/25 08:00 Temperature 97.6 F Pulse Rate 80 78 78 Respiratory Rate 18 Blood Pressure 125/56 L Pulse Oximetry 100 98 Oxygen Delivery 02/22/25 08:00 02/22/25 11:50 Temperature Pulse Rate Respiratory Rate Blood Pressure Pulse Oximetry 98 Oxygen Delivery Room Air Room Air Intake/Output Intake/Output: Intake & Output 02/19/25 02/20/25 02/21/25 02/22/25 23:59 23:59 23:59 23:59 Intake Total 3650 929.2 Output Total 25 Balance 3625 929.2 Meds/Results Medications: Active Medications Generic Name Dose Route Start Last Admin Trade Name Freq PRN Reason Stop Dose Admin Acetaminophen 650 mg 02/21/25 14:05 02/21/25 23:08 Acetaminophen 325 Mg Tablet PO 650 mg Q4H PRN Administration Mild Pain (1-3) or Fever Ascorbic Acid 1,000 mg 02/22/25 09:00 02/22/25 10:06 Ascorbic Acid 500 Mg Tablet PO 1,000 mg DAILY SHAKIR Administration Aspirin 81 mg 02/22/25 09:00 02/22/25 10:07 Aspirin 81 Mg Enteric Tablet PO 81 mg DAILY SHAKIR Administration Cyanocobalamin 1,000 mcg 02/22/25 09:00 02/22/25 10:06 Cyanocobalamin 1,000 Mcg Tablet PO 1,000 mcg DAILY SHAKIR Administration Donepezil HCl 10 mg 02/21/25 21:00 02/21/25 20:38 Donepezil Hcl 10 Mg Tablet PO 10 mg QHS SHAKIR Administration Fluticasone Propionate 2 spray 02/22/25 09:00 02/22/25 10:07 Fluticasone Propionate 0.05% Na Spr 16 Gm Btl (*Bkc) NASAL 2 spray DAILY SHAKIR Administration Lactated Ringer's 1,000 mls @ 125 mls/hr 02/21/25 14:05 02/22/25 06:33 Lr - Lactated Ringers Iv IV CONT 125 mls/hr .Q8H SHAKIR Administration Meloxicam 15 mg 02/22/25 09:00 02/22/25 10:06 Meloxicam 7.5 Mg Tablet PO 15 mg QAM SHAKIR Administration Memantine 10 mg 02/21/25 21:00 02/22/25 10:06 Memantine 10 Mg Tablet PO 10 mg Q12HR SHAKIR Administration Metoclopramide HCl 10 mg 02/21/25 16:31 Metoclopramide Hcl Inj 10 Mg/2 Ml Vial IV PUSH Q6HR PRN Nausea And Vomiting Multivitamins Therapeutic 1 tablet 02/22/25 09:00 02/22/25 10:06 Multivitamins Therapeutic Tab (*Bkc) PO 1 tablet DAILY SHAKIR Administration Pantoprazole Sodium 40 mg 02/22/25 09:00 02/22/25 10:06 Pantoprazole 40 Mg Tablet PO 40 mg Q12HR SHAKIR Administration Rosuvastatin Calcium 20 mg 02/22/25 09:00 02/22/25 10:05 Rosuvastatin 20 Mg Tablet PO Not Given DAILY SHAKIR Tamsulosin HCl 0.4 mg 02/22/25 09:00 02/22/25 10:06 Tamsulosin Hcl 0.4 Mg Capsule PO 0.4 mg DAILY SHAKIR Administration Trazodone HCl 100 mg 02/21/25 21:00 02/21/25 20:38 Trazodone Hcl 50 Mg Tablet PO 100 mg QHS SHAKIR Administration Radiology Results: ITS Impressions Head CT 02/21/25 13:42 IMPRESSION: 1. 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 No acute intracranial process. 2. Age-related changes including moderate diffuse volume loss and mild scattered white matter hypoattenuation consistent with chronic small vessel ischemic disease. Renal Ultrasound 02/21/25 17:31 IMPRESSION: No definite abnormality seen. Chest X-Ray 02/22/25 11:50 IMPRESSION: 1. Small lung volumes with increased initial pattern and bronchial wall thickening in both lungs with lower lung predominance. Differential would include mild pulmonary edema, bronchitis/pneumonia or reactive airway disease/asthma. Labs Labs: Laboratory Results - last 24 hr 02/21/25 02/21/25 02/21/25 12:18 12:46 12:50 WBC RBC Hgb Hct MCV MCH MCHC RDW Plt Count MPV Immature Gran % (Auto) Neut % (Auto) Lymph % (Auto) [place] % (Auto) Eos % (Auto) Baso % (Auto) Lymph # (Auto) [place] # (Auto) Eos # (Auto) Baso # (Auto) Abs Immat Gran (auto) Absolute Neuts (auto) Absolute Nucleated RBC Nucleated RBC % Sodium Potassium Chloride Carbon Dioxide Anion Gap BUN Creatinine Estim Creat Clear Calc Estimated GFR Glucose Lactic Acid 1.8 Calcium Total Bilirubin AST ALT Alkaline Phosphatase C-Reactive Protein 2.7 H Total Protein Albumin TSH (Reflex) 0.460 L Free T4 1.29 Total T3 1.06 Urine Color Yellow Urine Appearance Turbid H Urine pH 5.5 Ur Specific [place] 1.015 Urine Protein 2+ H Urine Glucose (UA) Negative Urine Ketones Trace H Ur Blood (Man) 1+ H Urine Nitrate Negative Urine Bilirubin Negative Urine Urobilinogen 1.0 Add Ur Microanalysis Reviewed Leukocyte Esterase Rfl 3+ H Urine RBC 0-2 Urine WBC >100 H Ur Squamous Epith Cells None seen Urine Bacteria 4+ H Urine Casts 3-5 02/22/25 04:56 WBC 10.1 H RBC 3.39 L Hgb 10.4 L Hct 31.9 L MCV 94.1 MCH 30.7 MCHC 32.6 RDW 13.9 Plt Count 181 MPV 9.9 Immature Gran % (Auto) 0.5 Neut % (Auto) 74.2 H Lymph % (Auto) 10.1 L [place] % (Auto) 12.6 H Eos % (Auto) 2.2 Baso % (Auto) 0.4 Lymph # (Auto) 1.02 [place] # (Auto) 1.3 H Eos # (Auto) 0.2 Baso # (Auto) 0.0 Abs Immat Gran (auto) 0.05 H Absolute Neuts (auto) 7.5 H Absolute Nucleated RBC 0.000 Nucleated RBC % 0.0 Sodium 139 Potassium 4.1 Chloride 105 Carbon Dioxide 29 Anion Gap 5 BUN 19 Creatinine 1.24 Estim Creat Clear Calc 44 Estimated GFR 55 L Glucose 101 Lactic Acid Calcium 8.4 Total Bilirubin 1.2 AST 24 ALT 13 Alkaline Phosphatase 52 C-Reactive Protein Total Protein 6.0 L Albumin 2.9 L TSH (Reflex) Free T4 Total T3 Urine Color Urine Appearance Urine pH Ur Specific [place] Urine Protein Urine Glucose (UA) Urine Ketones Ur Blood (Man) Urine Nitrate Urine Bilirubin Urine Urobilinogen Add Ur Microanalysis Leukocyte Esterase Rfl Urine RBC Urine WBC Ur Squamous Epith Cells Urine Bacteria Urine Casts Quality VTE Prophylaxis VTE prophylaxis: mechanical ordered
[2025-02-22] MEDS: DONEPEZIL HCL 10 MG TABLET PO (20:14)
[2025-02-23] VITALS (11 sets, daily range): BP systolic 119–160; BP diastolic 60–74; PULSE 64–96; RESP 18–20; TEMP 36.2–36.8; O2SAT 96–100
[2025-02-23] MEDS: LACTATED RINGERS 1,000 ML 125 ML IV CONT ×3 (00:22→17:36)
--- NOTE | 2025-02-23 06:49 | P.PNIM_ITS ---
Progress Note: A&P Assessment and Plan (1) Sepsis: Qualifiers: Acute renal failure type: unspecified Sepsis acute organ dysfunction status: with acute organ dysfunction Sepsis type: sepsis due to unspecified or ganism Severe sepsis acute organ dysfunction type: acute renal failure Severe sepsis shock status: without septic shock Qualified Code(s): A41.9 - Sepsis, unspecified organism; R65.20 - Severe sepsis without septic shock; N17.9 - Acute kidney failure, unspecified Code(s): A41.9 - Sepsis, unspecified organism Status: Acute Assessment and Plan: * meets SIRS criteria: HR >90, WBC >12 * lactic acid: 1.8 * 30 mL/kg bolus given in ED * suspected source: UTI * started on ceftriaxone * blood cultures drawn on 02/21, still pending * UA consistent with UTI, see below and CXR showed small lung volumes with mild bibasilar atelectasis, no pneumonia appreciated * Chest XR: Small lung volumes with increased initial pattern and bronchial wall thickening in both lungs with lower lung predominance. Differential would include mild pulmonary edema, bronchitis/pneumonia or reactive airway disease/asthma. * monitor hemodynamic stability * Urine Culture + for Ecoli growth * [place] sensitivity * Will switch to Augmentin PO for coverage of UTI and possible pneumonia (2) UTI (urinary tract infection): Qualifiers: Hematuria presence: without hematuria Urinary tract infection type: acute cystitis Qualified Code(s): N30.00 - Acute cystitis without hematuria Code(s): N39.0 - Urinary tract infection, site not specified Status: Acute Assessment and Plan: * UA: turbid, 2+ protein, trace ketones, 1+ blood, 3+ leuk esterase, greater than 100 WBC, no epithelial cells and 4+ bacteria * UC prelim - growth of ecoli * previous micro reviewed, patient grew pansensitive E coli on 12/18/2024 * started on Ceftriaxone on 02/21 - switched to Augment on 02/23 (3) NHUNG (acute kidney injury): Code(s): N17.9 - Acute kidney failure, unspecified Status: Acute Assessment and Plan: * baseline creatinine 1.1-1.2, currently 1.59 * check renal ultrasound * UA consistent with UTI * IV fluids: 2.5L bolus -> 125 mL/hr * monitor I&Os * Suspect NHUNG secondary to UTI. Will rehydrate and start antibiotics. If no improvement in renal function, consider further workup * 02/23 * Kidney function improved * NHUNG resolved (4) Recurrent falls: Code(s): R29.6 - Repeated falls Status: Acute Assessment and Plan: * Has been experiencing recurrent falls at home. Family and patient open to assessment for acute rehab services versus placement. May be worsened due to acute UTI. Patient at/family also noting patient has had low blood pressures at home. Will rehydrate and check orthostatics. * PT/OT/care coordination for d/c planning * Abx for UTI * IV fluids, check orthostatics * fall precautions (5) Hypotension: Code(s): I95.9 - Hypotension, unspecified Status: Acute Assessment and Plan: * BP upon arrival 115/63, however did have 4 readings with a systolic in the 90s. * Plan to rehydrate and check orthostatics daily * reviewed home medications, not currently on any anti-hypertensive medications or diuretics (6) Dementia: Qualifiers: Dementia behavioral or psychological symptom: with anxiety Dementia severity: unspecified severity Dementia type: unspecified type Qualified Code(s): F03.94 - Unspecified dementia, unspecified severity, with anxiety Code(s): F03.90 - Unspecified dementia, unspecified severity, without behavioral distu rbance, psychotic disturbance, mood disturbance, and anxiety Status: Chronic Assessment and Plan: * continue home medication(s): donepezil, memantine * working to decrease Ativan for anxiety outpatient as this may be contributing factor to patient's confusion, will hold inpatient. * Continue trazodone. (7) Abnormal chest xray: Code(s): R93.89 - Abnormal findings on diagnostic imaging of other specified body structures Status: Acute Assessment and Plan: * Chest XR: Small lung volumes with increased initial pattern and bronchial wall thickening in both lungs with lower lung predominance. Differential would include mild pulmonary edema, bronchitis/pneumonia or reactive airway disease/asthma. * Viral PCR: Flu/COVID/RSV pending * Consider ordering legionella, mycoplasma and pneumococcal * no supplemental O2 requirement * supportive treatment * trend labs * Monitor vital signs, I&Os, neuro status and patient is a fall risk * Follow WBC, serum electrolytes, temperature curves and cultures * Gentle IV fluid resuscitation * 02/23 * Afebrile, no leukocytosis, physical exam benign * Switched to Augmentin which should empirically cover possible Pneumonia Plan Diet: regular GI Prophylaxis: not currently applicable DVT Prophylaxis: SCDs IV fluids: 2.5L bolus -> 125 mL/hr Lines/Tubes: Peripheral IV Code Status: full code Subjective Date/time seen: 02/23/25 06:49 Interval history: 89 y/o M with PMH of dementia, BPH, and hyperlipidemia (based off patient's outside meds, unable to confirm with patient or ) presents here with low blood pressure readings. 02/23/2025 Pt sitting comfortably in bed at time of examination. Accompanied by . Pt has no complaints as of this time. Leukocytosis improving, down to 7.7 today. Urine cultures + e coli, [place]-sensitive - discussed with ID pharmacist, will switch antibiotics to Augment to cover UTI and possible pneumonia. Review of Systems Review of Systems: All systems reviewed & are unremarkable except as noted in HPI and below Exam Narrative: A/O to self, place, reported it was 2023 or 2024. Poor situational recall. Const: General: comfortable and no acute distress Other: , male, elderly, nontoxic appearance HENMT: Face/Nose/Sinus: Normal nares present Mouth: Yes moist mucous membranes Eyes: General: appearance normal, both eyes and all related structures Sclera: sclerae normal Pupils: Equal, round and reactive pupils present EOM: EOMs intact bilaterally Resp: Effort & Inspection: normal respiratory effort Auscultation: clear to auscultation bilaterally Cardio: Rate: regular rate Rhythm: regular rhythm Other: S1-S2 present without murmur, rub, ectopy GI: Other: Abdomen soft, nondistended, nontender. Normoactive bowel sounds in all quadrants. Skin: General skin exam: normal color and no rashes or lesions noted Wounds: no wounds Neuro: Cranial nerves: Yes Equal, round and reactive pupils present Speech: normal speech Motor exam (neuro): 5/5 motor strength present throughout Sensory Exam: normal sensation Other: A/O to self, place, reported it was 2023 or 2024. Poor situational recall. Though patient is able to answer most orientation question, he has occasional disorganized thought content evidenced by off topic questions. Extrem: General: normal to inspection Psych: Mental Status: mental status grossly normal Affect: normal affect Other: fair to poor insight and judgment at present, pleasant Objective Data Vital Signs Vital Signs: Vital Signs - 24 hr 02/22/25 08:00 02/22/25 08:00 02/22/25 08:00 Temperature Pulse Rate 78 78 Respiratory Rate Blood Pressure Pulse Oximetry 98 98 Oxygen Delivery Room Air Fraction of Inspired Oxygen 02/22/25 11:50 02/22/25 12:00 02/22/25 14:00 Temperature 98.2 F Pulse Rate 105 H 78 Respiratory Rate 12 Blood Pressure 134/62 Pulse Oximetry 100 Oxygen Delivery Room Air Fraction of Inspired Oxygen 02/22/25 14:05 02/22/25 14:10 02/22/25 16:00 Temperature Pulse Rate 85 89 70 Respiratory Rate Blood Pressure 116/60 108/51 L Pulse Oximetry Oxygen Delivery Fraction of Inspired Oxygen 02/22/25 19:46 02/22/25 19:55 02/22/25 19:55 Temperature Pulse Rate Respiratory Rate Blood Pressure 126/55 L 117/63 106/59 L Pulse Oximetry Oxygen Delivery Fraction of Inspired Oxygen 02/22/25 19:56 02/22/25 20:00 02/22/25 20:00 Temperature 98.3 F Pulse Rate 78 108 H Respiratory Rate 20 Blood Pressure 126/55 L Pulse Oximetry 97 Oxygen Delivery Room Air Fraction of Inspired Oxygen 02/22/25 20:43 02/23/25 00:00 02/23/25 04:00 Temperature Pulse Rate 83 76 68 Respiratory Rate 20 Blood Pressure Pulse Oximetry 93 Oxygen Delivery Room Air Fraction of Inspired Oxygen 21 02/23/25 05:02 Temperature 97.6 F Pulse Rate 64 Respiratory Rate 20 Blood Pressure 123/65 Pulse Oximetry 97 Oxygen Delivery Fraction of Inspired Oxygen Intake/Output Intake/Output: Intake & Output 02/20/25 02/21/25 02/22/25 02/23/25 23:59 23:59 23:59 23:59 Intake Total 3650 2169.2 1200 Output Total 25 400 Balance 3625 2169.2 800 Meds/Results Medications: Active Medications Generic Name Dose Route Start Last Admin Trade Name Freq PRN Reason Stop Dose Admin Acetaminophen 650 mg 02/21/25 14:05 02/21/25 23:08 Acetaminophen 325 Mg Tablet PO 650 mg Q4H PRN Administration Mild Pain (1-3) or Fever Ascorbic Acid 1,000 mg 02/22/25 09:00 02/22/25 10:06 Ascorbic Acid 500 Mg Tablet PO 1,000 mg DAILY SHAKIR Administration Aspirin 81 mg 02/22/25 09:00 02/22/25 10:07 Aspirin 81 Mg Enteric Tablet PO 81 mg DAILY SHAKIR Administration Cyanocobalamin 1,000 mcg 02/22/25 09:00 02/22/25 10:06 Cyanocobalamin 1,000 Mcg Tablet PO 1,000 mcg DAILY SHAKIR Administration Donepezil HCl 10 mg 02/21/25 21:00 02/22/25 20:14 Donepezil Hcl 10 Mg Tablet PO 10 mg QHS SHAKIR Administration Fluticasone Propionate 2 spray 02/22/25 09:00 02/22/25 10:07 Fluticasone Propionate 0.05% Na Spr 16 Gm Btl (*Bkc) NASAL 2 spray DAILY SHAKIR Administration Lactated Ringer's 1,000 mls @ 125 mls/hr 02/21/25 14:05 02/23/25 00:22 Lr - Lactated Ringers Iv IV CONT 125 mls/hr .Q8H SHAKIR Administration Meloxicam 15 mg 02/22/25 09:00 02/22/25 10:06 Meloxicam 7.5 Mg Tablet PO 15 mg QAM SHAKIR Administration Memantine 10 mg 02/21/25 21:00 02/22/25 20:14 Memantine 10 Mg Tablet PO 10 mg Q12HR SHAKIR Administration Metoclopramide HCl 10 mg 02/21/25 16:31 Metoclopramide Hcl Inj 10 Mg/2 Ml Vial IV PUSH Q6HR PRN Nausea And Vomiting Multivitamins Therapeutic 1 tablet 02/22/25 09:00 02/22/25 10:06 Multivitamins Therapeutic Tab (*Bkc) PO 1 tablet DAILY SHAKIR Administration Pantoprazole Sodium 40 mg 02/22/25 09:00 02/22/25 20:14 Pantoprazole 40 Mg Tablet PO 40 mg Q12HR SHAKIR Administration Rosuvastatin Calcium 20 mg 02/22/25 09:00 02/22/25 10:05 Rosuvastatin 20 Mg Tablet PO Not Given DAILY SHAKIR Tamsulosin HCl 0.4 mg 02/22/25 09:00 02/22/25 10:06 Tamsulosin Hcl 0.4 Mg Capsule PO 0.4 mg DAILY SHAKIR Administration Trazodone HCl 100 mg 02/21/25 21:00 02/22/25 20:14 Trazodone Hcl 50 Mg Tablet PO 100 mg QHS SHAKIR Administration Radiology Results: ITS Impressions Head CT 02/21/25 13:42 IMPRESSION: 1. 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 No acute intracranial process. 2. Age-related changes including moderate diffuse volume loss and mild scattered white matter hypoattenuation consistent with chronic small vessel ischemic disease. Renal Ultrasound 02/21/25 17:31 IMPRESSION: No definite abnormality seen. Chest X-Ray 02/22/25 11:50 IMPRESSION: 1. Small lung volumes with increased initial pattern and bronchial wall thickening in both lungs with lower lung predominance. Differential would include mild pulmonary edema, bronchitis/pneumonia or reactive airway disease/asthma. Quality VTE Prophylaxis VTE prophylaxis: mechanical ordered
[2025-02-23 07:00] LABS: Hematocrit 30.3 % (42.0-52.0); Hemoglobin 9.8 g/dL (14.0-18.0); Immature Granulocyte Percent A 0.5 % (0-0.5); Lymphocytes Absolute Auto 0.78 K/mm3 (0.9-3.2); Mean Corpuscular HGB Conc 32.3 g/dl (32-36); Mean Corpuscular Hemoglobin 30.2 pg (26-34); Mean Corpuscular Volume 93.2 fl (80-100); Nucleated Red Blood Cells Absolute Auto 0.000 K/mm3 (0.0-0.012); Nucleated Red Blood Cells Perc 0.0 % (0.0-0.2); Platelet Count Result 159 k/mm3 (150-375); Red Blood Count 3.25 M/mm3 (4.6-6.20); White Blood Count 7.7 K/mm3 (4.5-10.0)
[2025-02-23 07:15] LABS: Alanine Aminotransferase 12 U/L (6-50); Albumin Level 2.8 g/dL (3.5-5.1); Alkaline Phosphatase 58 U/L (38-126); Anion Gap 5 mmol/L (4-12); Aspartate Amino Transferase 26 U/L (17-59); Bilirubin,Total 0.9 mg/dL (0.2-1.3); Blood Urea Nitrogen 16 mg/dL (9-20); Calcium 8.4 mg/dL (8.4-10.2); Carbon Dioxide 28 mmol/L (22-30); Chloride 104 mmol/L (98-107); Estimated CRCL calculation 50 ml/min; Estimated Glomerular Filt Rate > 60; Glucose 96 mg/dL (65-110); Potassium 4.0 mmol/L (3.4-5.0); Sodium 137 mmol/L (137-145); Total Protein 6.0 g/dL (6.3-8.2)
[2025-02-23] MEDS: cefTRIAXone 2 GM/NS 100 ML 2 GM/100 ML BAG IVPB (09:12)
[2025-02-23] MEDS: ROSUVASTATIN 20 MG TABLET PO (09:15)
[2025-02-23] MEDS: ASCORBIC ACID 500 MG TABLET 1000 MG PO (09:15)
[2025-02-23] MEDS: TAMSULOSIN HCL 0.4 MG CAPSULE PO (09:15)
[2025-02-23] MEDS: MELOXICAM 7.5 MG TABLET 15 MG PO (09:15)
[2025-02-23] MEDS: MEMANTINE 10 MG TABLET PO ×2 (09:15→20:24)
[2025-02-23] MEDS: CYANOCOBALAMIN 1,000 MCG TABLET 1000 MCG PO (09:15)
[2025-02-23] MEDS: ASPIRIN 81 MG ENTERIC TABLET PO (09:15)
[2025-02-23] MEDS: PANTOPRAZOLE 40 MG TABLET PO ×2 (09:15→20:24)
[2025-02-23] MEDS: MULTIVITAMINS THERAPEUTIC TAB (*BKC) 1 TABLET PO (09:15)
[2025-02-23] MEDS: FLUTICASONE PROPIONATE 0.05% NA SPR 16 GM BTL (*BKC) 2 SPRAY NASAL (09:16)
[2025-02-23 15:26] LABS: Influenza A QL RT-PCR Negative (Negative); Influenza B QL RT-PCR Negative (Negative); RSV RNA, RT-PCR Negative (Negative); SARS-CoV-2 RNA PCR Negative (Negative)
[2025-02-23] MEDS: DONEPEZIL HCL 10 MG TABLET PO (20:24)
[2025-02-24] VITALS (11 sets, daily range): BP systolic 126–159; BP diastolic 58–84; PULSE 66–96; RESP 18–20; TEMP 36.3–37.2; O2SAT 95–99
[2025-02-24 05:19] LABS: Hematocrit 30.3 % (42.0-52.0); Hemoglobin 9.8 g/dL (14.0-18.0); Immature Granulocyte Percent A 0.6 % (0-0.5); Lymphocytes Absolute Auto 0.88 K/mm3 (0.9-3.2); Mean Corpuscular HGB Conc 32.3 g/dl (32-36); Mean Corpuscular Hemoglobin 29.8 pg (26-34); Mean Corpuscular Volume 92.1 fl (80-100); Nucleated Red Blood Cells Absolute Auto 0.000 K/mm3 (0.0-0.012); Nucleated Red Blood Cells Perc 0.0 % (0.0-0.2); Platelet Count Result 167 k/mm3 (150-375); Red Blood Count 3.29 M/mm3 (4.6-6.20); White Blood Count 7.0 K/mm3 (4.5-10.0)
[2025-02-24 05:29] LABS: Alanine Aminotransferase 15 U/L (6-50); Albumin Level 2.9 g/dL (3.5-5.1); Alkaline Phosphatase 74 U/L (38-126); Anion Gap 6 mmol/L (4-12); Aspartate Amino Transferase 27 U/L (17-59); Bilirubin,Total 0.6 mg/dL (0.2-1.3); Blood Urea Nitrogen 15 mg/dL (9-20); Calcium 8.2 mg/dL (8.4-10.2); Carbon Dioxide 24 mmol/L (22-30); Chloride 106 mmol/L (98-107); Estimated CRCL calculation 51 ml/min; Estimated Glomerular Filt Rate > 60; Glucose 101 mg/dL (65-110); Potassium 3.6 mmol/L (3.4-5.0); Sodium 136 mmol/L (137-145); Total Protein 6.0 g/dL (6.3-8.2)
[2025-02-24] MEDS: LACTATED RINGERS 1,000 ML 125 ML IV CONT ×2 (09:18→16:27)
[2025-02-24] MEDS: TAMSULOSIN HCL 0.4 MG CAPSULE PO (09:19)
[2025-02-24] MEDS: ASCORBIC ACID 500 MG TABLET 1000 MG PO (09:19)
[2025-02-24] MEDS: ROSUVASTATIN 20 MG TABLET PO (09:19)
[2025-02-24] MEDS: MEMANTINE 10 MG TABLET PO ×2 (09:19→20:25)
[2025-02-24] MEDS: MELOXICAM 7.5 MG TABLET 15 MG PO (09:19)
[2025-02-24] MEDS: ASPIRIN 81 MG ENTERIC TABLET PO (09:19)
[2025-02-24] MEDS: CYANOCOBALAMIN 1,000 MCG TABLET 1000 MCG PO (09:19)
[2025-02-24] MEDS: MULTIVITAMINS THERAPEUTIC TAB (*BKC) 1 TABLET PO (09:19)
[2025-02-24] MEDS: FLUTICASONE PROPIONATE 0.05% NA SPR 16 GM BTL (*BKC) 2 SPRAY NASAL (09:20)
[2025-02-24] MEDS: PANTOPRAZOLE 40 MG TABLET PO ×2 (09:20→20:25)
--- NOTE | 2025-02-24 12:06 | P.PNIM_ITS ---
Progress Note: A&P Assessment and Plan (1) Sepsis: Qualifiers: Sepsis type: sepsis due to unspecified organism Sepsis acute organ dysfunction status: with acute organ dysfunction Severe sepsis acute organ dysfunction type: acute renal failure Acute renal failure type: unspecified Severe sepsis shock status: without septic shock Qualified Code(s): A41.9 - Sepsis, unspecified organism; R65.20 - Severe sepsis without septic shock; N17.9 - Acute kidney failure, unspecified Code(s): A41.9 - Sepsis, unspecified organism Status: Acute Assessment and Plan: * meets SIRS criteria: HR >90, WBC >12 * lactic acid: 1.8 * 30 mL/kg bolus given in ED * suspected source: UTI * started on ceftriaxone * blood cultures drawn on 02/21, still pending * UA consistent with UTI, see below and CXR showed small lung volumes with mild bibasilar atelectasis, no pneumonia appreciated * Chest XR: Small lung volumes with increased initial pattern and bronchial wall thickening in both lungs with lower lung predominance. Differential would include mild pulmonary edema, bronchitis/pneumonia or reactive airway disease/asthma. * monitor hemodynamic stability * Urine Culture + for Ecoli growth * Flores sensitivity * Will switch to Augmentin PO for coverage of UTI and possible pneumonia * 02/24 Vitals + blood work stable/unremarkable today * Pt states he continues to feel better each day (2) UTI (urinary tract infection): Qualifiers: Urinary tract infection type: acute cystitis Hematuria presence: without hematuria Qualified Code(s): N30.00 - Acute cystitis without hematuria Code(s): N39.0 - Urinary tract infection, site not specified Status: Acute Assessment and Plan: * UA: turbid, 2+ protein, trace ketones, 1+ blood, 3+ leuk esterase, greater than 100 WBC, no epithelial cells and 4+ bacteria * UC prelim - growth of ecoli * previous micro reviewed, patient grew pansensitive E coli on 12/18/2024 * started on Ceftriaxone on 02/21 - switched to Augmentin on 02/23 (3) NHUNG (acute kidney injury): Code(s): N17.9 - Acute kidney failure, unspecified Status: Acute Assessment and Plan: * baseline creatinine 1.1-1.2, currently 1.59 * check renal ultrasound * UA consistent with UTI * IV fluids: 2.5L bolus -> 125 mL/hr * monitor I&Os * Suspect NHUNG secondary to UTI. Will rehydrate and start antibiotics. If no improvement in renal function, consider further workup * 02/24 * NHUNG resolved (4) Recurrent falls: Code(s): R29.6 - Repeated falls Status: Acute Assessment and Plan: * Has been experiencing recurrent falls at home. Family and patient open to assessment for acute rehab services versus placement. May be worsened due to acute UTI. Patient at/family also noting patient has had low blood pressures at home. Will rehydrate and check orthostatics. * PT/OT/care coordination for d/c planning * Abx for UTI * IV fluids, check orthostatics * fall precautions * PT/OT recommends further therapy * Working with CC regarding SNF/[place]/[facility] (5) Hypotension: Code(s): I95.9 - Hypotension, unspecified Status: Acute Assessment and Plan: * BP upon arrival 115/63, however did have 4 readings with a systolic in the 90s. * Plan to rehydrate and check orthostatics daily * reviewed home medications, not currently on any anti-hypertensive medications or diuretics (6) Dementia: Qualifiers: Dementia type: unspecified type Dementia severity: unspecified severity Dementia behavioral or psychological symptom: with anxiety Qualified Code(s): F03.94 - Unspecified dementia, unspecified severity, with anxiety Code(s): F03.90 - Unspecified dementia, unspecified severity, without behavioral disturbance, psychotic disturbance, mood disturbance, and anxiety Status: Chronic Assessment and Plan: * continue home medication(s): donepezil, memantine * working to decrease Ativan for anxiety outpatient as this may be contributing factor to patient's confusion, will hold inpatient. * Continue trazodone. (7) Abnormal chest xray: Code(s): R93.89 - Abnormal findings on diagnostic imaging of other specified body structures Status: Acute Assessment and Plan: * Chest XR: Small lung volumes with increased initial pattern and bronchial wall thickening in both lungs with lower lung predominance. Differential would include mild pulmonary edema, bronchitis/pneumonia or reactive airway disease/asthma. * Viral PCR: Flu/COVID/RSV pending * Consider ordering legionella, mycoplasma and pneumococcal * no supplemental O2 requirement * supportive treatment * trend labs * Monitor vital signs, I&Os, neuro status and patient is a fall risk * Follow WBC, serum electrolytes, temperature curves and cultures * Gentle IV fluid resuscitation * 02/24 * Switched to Augmentin yesterday which should empirically cover possible Pneumonia Plan Diet: regular GI Prophylaxis: not currently applicable DVT Prophylaxis: SCDs IV fluids: 2.5L bolus -> 125 mL/hr Lines/Tubes: Peripheral IV Code Status: full code Subjective Date/time seen: 02/24/25 12:06 Interval history: 89 y/o M with PMH of dementia, BPH, and hyperlipidemia (based off patient's outside meds, unable to confirm with patient or ) presents here with low blood pressure readings. 02/24/2025 Pt sitting comfortably in bed at time of examination. Accompanied by . Denies any CP, SOB, n/v, abd pain. Blood work unremarkable. Working with CC regarding placement as PT/OT recs further rehab therapy. No other concerns or changes today. Continue Augmentin for UTI/Pneumonia Review of Systems Review of Systems: All systems reviewed & are unremarkable except as noted in HPI and below Exam Narrative: A/O to self, place, reported it was 2023 or 2024. Poor situational recall. Const: General: comfortable and no acute distress Other: , male, elderly, nontoxic appearance HENMT: Face/Nose/Sinus: Normal nares present Mouth: Yes moist mucous membranes Eyes: General: appearance normal, both eyes and all related structures Sclera: sclerae normal Pupils: Equal, round and reactive pupils present EOM: EOMs intact bilaterally Resp: Effort & Inspection: normal respiratory effort Auscultation: clear to auscultation bilaterally Cardio: Rate: regular rate Rhythm: regular rhythm Other: S1-S2 present without murmur, rub, ectopy GI: Other: Abdomen soft, nondistended, nontender. Normoactive bowel sounds in all quadrants. Skin: General skin exam: normal color and no rashes or lesions noted Wounds: no wounds Neuro: Cranial nerves: Yes Equal, round and reactive pupils present Speech: normal speech Motor exam (neuro): 5/5 motor strength present throughout Sensory Exam: normal sensation Other: A/O to self, place, reported it was 2023 or 2024. Poor situational recall. Though patient is able to answer most orientation question, he has occasional disorganized thought content evidenced by off topic questions. Extrem: General: normal to inspection Psych: Mental Status: mental status grossly normal Affect: normal affect Other: fair to poor insight and judgment at present, pleasant Objective Data Vital Signs Vital Signs: Vital Signs - 24 hr 02/23/25 14:00 02/23/25 14:00 02/23/25 14:05 Temperature 97.2 F L 97.2 F L Pulse Rate 74 74 78 Respiratory Rate 18 18 Blood Pressure 128/64 128/64 127/74 Pulse Oximetry 96 96 100 Oxygen Delivery 02/23/25 14:10 02/23/25 16:00 02/23/25 20:00 Temperature Pulse Rate 71 70 Respiratory Rate Blood Pressure 119/60 Pulse Oximetry 100 Oxygen Delivery Room Air 02/23/25 20:00 02/23/25 20:58 02/24/25 00:00 Temperature 98.2 F Pulse Rate 66 75 70 Respiratory Rate 18 Blood Pressure 160/73 H Pulse Oximetry 99 Oxygen Delivery 02/24/25 04:00 02/24/25 04:50 02/24/25 08:00 Temperature 98.9 F Pulse Rate 77 96 Respiratory Rate 18 Blood Pressure 159/84 H Pulse Oximetry 95 Oxygen Delivery Room Air 02/24/25 08:00 Temperature Pulse Rate 67 Respiratory Rate Blood Pressure Pulse Oximetry Oxygen Delivery Intake/Output Intake/Output: Intake & Output 02/21/25 02/22/25 02/23/25 02/24/25 23:59 23:59 23:59 23:59 Intake Total 3650 2169.2 4478 1100 Output Total 25 1100 350 Balance 3625 2169.2 3378 750 Meds/Results Medications: Active Medications Generic Name Dose Route Start Last Admin Trade Name Freq PRN Reason Stop Dose Admin Acetaminophen 650 mg 02/21/25 14:05 02/21/25 23:08 Acetaminophen 325 Mg Tablet PO 650 mg Q4H PRN Administration Mild Pain (1-3) or Fever Amoxicillin/Clavulanate Potassium 1 tablet 02/24/25 09:00 02/24/25 09:19 Amoxicillin/Clavulanate K 875-125 Mg Tab PO 03/01/25 21:01 1 tablet Q12HR SHAKIR Administration Ascorbic Acid 1,000 mg 02/22/25 09:00 02/24/25 09:19 Ascorbic Acid 500 Mg Tablet PO 1,000 mg DAILY SHAKIR Administration Aspirin 81 mg 02/22/25 09:00 02/24/25 09:19 Aspirin 81 Mg Enteric Tablet PO 81 mg DAILY SHAKIR Administration Cyanocobalamin 1,000 mcg 02/22/25 09:00 02/24/25 09:19 Cyanocobalamin 1,000 Mcg Tablet PO 1,000 mcg DAILY SHAKIR Administration Donepezil HCl 10 mg 02/21/25 21:00 02/23/25 20:24 Donepezil Hcl 10 Mg Tablet PO 10 mg QHS SHAKIR Administration Fluticasone Propionate 2 spray 02/22/25 09:00 02/24/25 09:20 Fluticasone Propionate 0.05% Na Spr 16 Gm Btl (*Bkc) NASAL 2 spray DAILY SHAKIR Administration Lactated Ringer's 1,000 mls @ 125 mls/hr 02/21/25 14:05 02/24/25 09:18 Lr - Lactated Ringers Iv IV CONT 125 mls/hr .Q8H SHAKIR Administration Meloxicam 15 mg 02/22/25 09:00 02/24/25 09:19 Meloxicam 7.5 Mg Tablet PO 15 mg QAM SHAKIR Administration Memantine 10 mg 02/21/25 21:00 02/24/25 09:19 Memantine 10 Mg Tablet PO 10 mg Q12HR SHAKIR Administration Metoclopramide HCl 10 mg 02/21/25 16:31 Metoclopramide Hcl Inj 10 Mg/2 Ml Vial IV PUSH Q6HR PRN Nausea And Vomiting Multivitamins Therapeutic 1 tablet 02/22/25 09:00 02/24/25 09:19 Multivitamins Therapeutic Tab (*Bkc) PO 1 tablet DAILY SHAKIR Administration Pantoprazole Sodium 40 mg 02/22/25 09:00 02/24/25 09:20 Pantoprazole 40 Mg Tablet PO 40 mg Q12HR SHAKIR Administration Rosuvastatin Calcium 20 mg 02/22/25 09:00 02/24/25 09:19 Rosuvastatin 20 Mg Tablet PO 20 mg DAILY SHAKIR Administration Tamsulosin HCl 0.4 mg 02/22/25 09:00 02/24/25 09:19 Tamsulosin Hcl 0.4 Mg Capsule PO 0.4 mg DAILY SHAKIR Administration Trazodone HCl 100 mg 02/21/25 21:00 02/23/25 20:24 Trazodone Hcl 50 Mg Tablet PO 100 mg QHS SHAKIR Administration Radiology Results: ITS Impressions Head CT 02/21/25 13:42 IMPRESSION: 1. 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 No acute intracranial process. 2. Age-related changes including moderate diffuse volume loss and mild scattered white matter hypoattenuation consistent with chronic small vessel ischemic disease. Renal Ultrasound 02/21/25 17:31 IMPRESSION: No definite abnormality seen. Chest X-Ray 02/22/25 11:50 IMPRESSION: 1. Small lung volumes with increased initial pattern and bronchial wall thickening in both lungs with lower lung predominance. Differential would includ e mild pulmonary edema, bronchitis/pneumonia or reactive airway disease/asthma. Labs Labs: Laboratory Results - last 24 hr 02/23/25 02/24/25 14:44 04:59 WBC 7.0 RBC 3.29 L Hgb 9.8 L Hct 30.3 L MCV 92.1 MCH 29.8 MCHC 32.3 RDW 13.5 Plt Count 167 MPV 10.4 Immature Gran % (Auto) 0.6 H Neut % (Auto) 69.3 Lymph % (Auto) 12.7 L Dent % (Auto) 12.9 H Eos % (Auto) 3.9 Baso % (Auto) 0.6 Lymph # (Auto) 0.88 L Dent # (Auto) 0.9 H Eos # (Auto) 0.3 Baso # (Auto) 0.0 Abs Immat Gran (auto) 0.04 H Absolute Neuts (auto) 4.8 Absolute Nucleated RBC 0.000 Nucleated RBC % 0.0 Sodium 136 L Potassium 3.6 Chloride 106 Carbon Dioxide 24 Anion Gap 6 BUN 15 Creatinine 1.07 Estim Creat Clear Calc 51 Estimated GFR > 60 Glucose 101 Calcium 8.2 L Total Bilirubin 0.6 AST 27 ALT 15 Alkaline Phosphatase 74 Total Protein 6.0 L Albumin 2.9 L Influenza A (RT-PCR) Negative Influenza B (RT-PCR) Negative RSV (RT-PCR) Negative SARS-CoV-2 RNA (RT-PCR) Negative Quality VTE Prophylaxis VTE prophylaxis: mechanical ordered
[2025-02-24] MEDS: DONEPEZIL HCL 10 MG TABLET PO (20:25)
[2025-02-25] VITALS (11 sets, daily range): BP systolic 117–152; BP diastolic 61–78; PULSE 61–84; RESP 16–20; TEMP 36.3–36.8; O2SAT 95–99
[2025-02-25] MEDS: LACTATED RINGERS 1,000 ML 125 ML IV CONT ×2 (00:37→08:29)
[2025-02-25 05:22] LABS: Hematocrit 28.6 % (42.0-52.0); Hemoglobin 9.3 g/dL (14.0-18.0); Immature Granulocyte Percent A 0.5 % (0-0.5); Lymphocytes Absolute Auto 0.85 K/mm3 (0.9-3.2); Mean Corpuscular HGB Conc 32.5 g/dl (32-36); Mean Corpuscular Hemoglobin 30.2 pg (26-34); Mean Corpuscular Volume 92.9 fl (80-100); Nucleated Red Blood Cells Absolute Auto 0.000 K/mm3 (0.0-0.012); Nucleated Red Blood Cells Perc 0.0 % (0.0-0.2); Platelet Count Result 174 k/mm3 (150-375); Red Blood Count 3.08 M/mm3 (4.6-6.20); White Blood Count 6.0 K/mm3 (4.5-10.0)
[2025-02-25 05:31] LABS: Alanine Aminotransferase 14 U/L (6-50); Albumin Level 2.8 g/dL (3.5-5.1); Alkaline Phosphatase 71 U/L (38-126); Anion Gap 4 mmol/L (4-12); Aspartate Amino Transferase 26 U/L (17-59); Bilirubin,Total 0.7 mg/dL (0.2-1.3); Blood Urea Nitrogen 13 mg/dL (9-20); Calcium 8.0 mg/dL (8.4-10.2); Carbon Dioxide 25 mmol/L (22-30); Chloride 106 mmol/L (98-107); Estimated CRCL calculation 54 ml/min; Estimated Glomerular Filt Rate > 60; Glucose 94 mg/dL (65-110); Potassium 3.6 mmol/L (3.4-5.0); Sodium 135 mmol/L (137-145); Total Protein 5.9 g/dL (6.3-8.2)
--- NOTE | 2025-02-25 07:19 | P.PNIM_ITS ---
Progress Note: A&P Assessment and Plan (1) Sepsis: Qualifiers: Acute renal failure type: unspecified Sepsis acute organ dysfunction status: with acute organ dysfunction Sepsis type: sepsis due to unspecified or ganism Severe sepsis acute organ dysfunction type: acute renal failure Severe sepsis shock status: without septic shock Qualified Code(s): A41.9 - Sepsis, unspecified organism; R65.20 - Severe sepsis without septic shock; N17.9 - Acute kidney failure, unspecified Code(s): A41.9 - Sepsis, unspecified organism Status: Acute Assessment and Plan: * meets SIRS criteria: HR >90, WBC >12 * lactic acid: 1.8 * 30 mL/kg bolus given in ED * suspected source: UTI * started on ceftriaxone * blood cultures drawn on 02/21, still pending * UA consistent with UTI, see below and CXR showed small lung volumes with mild bibasilar atelectasis, no pneumonia appreciated * Chest XR: Small lung volumes with increased initial pattern and bronchial wall thickening in both lungs with lower lung predominance. Differential would include mild pulmonary edema, bronchitis/pneumonia or reactive airway disease/asthma. * monitor hemodynamic stability * Urine Culture + for Ecoli growth * Flores sensitivity * Will switch to Augmentin PO for coverage of UTI and possible pneumonia * 02/25 * Afebrile, no leukocytosis * Pending discharge placement to SNF (2) UTI (urinary tract infection): Qualifiers: Hematuria presence: without hematuria Urinary tract infection type: a cute cystitis Qualified Code(s): N30.00 - Acute cystitis without hematuria Code(s): N39.0 - Urinary tract infection, site not specified Status: Acute Assessment and Plan: * UA: turbid, 2+ protein, trace ketones, 1+ blood, 3+ leuk esterase, greater than 100 WBC, no epithelial cells and 4+ bacteria * UC prelim - growth of ecoli * previous micro reviewed, patient grew pansensitive E coli on 12/18/2024 * started on Ceftriaxone on 02/21 - switched to Augmentin on 02/23 (3) NHUNG (acute kidney injury): Code(s): N17.9 - Acute kidney failure, unspecified Status: Acute Assessment and Plan: * baseline creatinine 1.1-1.2, currently 1.59 * check renal ultrasound * UA consistent with UTI * IV fluids: 2.5L bolus -> 125 mL/hr * monitor I&Os * Suspect NHUNG secondary to UTI. Will rehydrate and start antibiotics. If no improvement in renal function, consider further workup * 02/25 * No changes * NHUNG resolved (4) Recurrent falls: Code(s): R29.6 - Repeated falls Status: Acute Assessment and Plan: * Has been experiencing recurrent falls at home. Family and patient open to assessment for acute rehab services versus placement. May be worsened due to acute UTI. Patient at/family also noting patient has had low blood pressures at home. Will rehydrate and check orthostatics. * PT/OT/care coordination for d/c planning * Abx for UTI * IV fluids, check orthostatics * fall precautions * PT/OT recommends further therapy * Working with CC regarding SNF/[place]/[facility] (5) Hypotension: Code(s): I95.9 - Hypotension, unspecified Status: Acute Assessment and Plan: * BP upon arrival 115/63, however did have 4 readings with a systolic in the 90s. * Plan to rehydrate and check orthostatics daily * reviewed home medications, not currently on any anti-hypertensive medications or diuretics (6) Dementia: Qualifiers: Dementia behavioral or psychological symptom: with anxiety Dementia severity: unspecified severity Dementia type: unspecified type Qualified Code(s): F03.94 - Unspecified dementia, unspecified severity, with anxiety Code(s): F03.90 - Unspecified dementia, unspecified severity, without behavioral disturbance, psychotic disturbance, mood disturbance, and anxiety Status: Chronic Assessment and Plan: * continue home medication(s): donepezil, memantine * working to decrease Ativan for anxiety outpatient as this may be contributing factor to patient's confusion, will hold inpatient. * Continue trazodone. (7) Abnormal chest xray: Code(s): R93.89 - Abnormal findings on diagnostic imaging of other specified body structures Status: Acute Assessment and Plan: * Chest XR: Small lung volumes with increased initial pattern and bronchial wall thickening in both lungs with lower lung predominance. Differential would include mild pulmonary edema, bronchitis/pneumonia or reactive airway disease/asthma. * Viral PCR: Flu/COVID/RSV pending * Consider ordering legionella, mycoplasma and pneumococcal * no supplemental O2 requirement * supportive treatment * trend labs * Monitor vital signs, I&Os, neuro status and patient is a fall risk * Follow WBC, serum electrolytes, temperature curves and cultures * Gentle IV fluid resuscitation * 02/25 * Augmentin * No changes - physical exam remains benign, pt has no complaints Plan Diet: regular GI Prophylaxis: not currently applicable DVT Prophylaxis: SCDs IV fluids: 2.5L bolus -> 125 mL/hr Lines/Tubes: Peripheral IV Code Status: full code Subjective Date/time seen: 02/25/25 07:19 Interval history: 89 y/o M with PMH of dementia, BPH, and hyperlipidemia (based off patient's outside meds, unable to confirm with patient or ) presents here with low blood pressure readings. 02/25/2025 Pt sitting comfortably in bed at time of examination. Denies any cp, sob, n/v, or abd pain at this time. At this time pt has been transitioned to oral abx. Waiting on placement/authorization for SNF/HH. Likely can be d/mu tomorrow. Pt amenable to this plan, no other comments or concerns. Review of Systems Review of Systems: All systems reviewed & are unremarkable except as noted in HPI and below Exam Narrative: A/O to self, place, reported it was 2023 or 2024. Poor situational recall. Const: General: comfortable and no acute distress Other: , male, elderly, nontoxic appearance HENMT: Face/Nose/Sinus: Normal nares present Mouth: Yes moist mucous membranes Eyes: General: appearance normal, both eyes and all related structures Sclera: sclerae normal Pupils: Equal, round and reactive pupils present EOM: EOMs intact bilaterally Resp: Effort & Inspection: normal respiratory effort Auscultation: clear to auscultation bilaterally Cardio: Rate: regular rate Rhythm: regular rhythm Other: S1-S2 present without murmur, rub, ectopy GI: Other: Abdomen soft, nondistended, nontender. Normoactive bowel sounds in all quadrants. Skin: General skin exam: normal color and no rashes or lesions noted Wounds: no wounds Neuro: Cranial nerves: Yes Equal, round and reactive pupils present Speech: normal speech Motor exam (neuro): 5/5 motor strength present throughout Sensory Exam: normal sensation Other: A/O to self, place, reported it was 2023 or 2024. Poor situational recall. Though patient is able to answer most orientation question, he has occasional disorganized thought content evidenced by off topic questions. Extrem: General: normal to inspection Psych: Mental Status: mental status grossly normal Affect: normal affect Other: fair to poor insight and judgment at present, pleasant Objective Data Vital Signs Vital Signs: Vital Signs - 24 hr 02/24/25 08:00 02/24/25 08:00 02/24/25 12:00 Temperature Pulse Rate 67 79 Respiratory Rate Blood Pressure Pulse Oximetry Oxygen Delivery Room Air 02/24/25 14:46 02/24/25 14:46 02/24/25 14:48 Temperature 97.7 F 97.7 F 97.5 F L Pulse Rate 77 77 82 Respiratory Rate 18 18 18 Blood Pressure 138/58 L 138/58 L 130/71 Pulse Oximetry 99 99 98 Oxygen Delivery 02/24/25 14:53 02/24/25 16:00 02/24/25 20:00 Temperature 97.4 F L Pulse Rate 85 68 Respiratory Rate 18 Blood Pressure 126/69 Pulse Oximetry 96 Oxygen Delivery Room Air 02/24/25 20:00 02/24/25 20:02 02/25/25 00:00 Temperature 97.6 F Pulse Rate 66 66 66 Respiratory Rate 20 Blood Pressure 134/62 Pulse Oximetry 97 Oxygen Delivery 02/25/25 04:00 02/25/25 06:00 Temperature 98.2 F Pulse Rate 64 82 Respiratory Rate 20 Blood Pressure 152/72 H Pulse Oximetry 96 Oxygen Delivery Intake/Output Intake/Output: Intake & Output 02/22/25 02/23/25 02/24/25 02/25/25 23:59 23:59 23:59 23:59 Intake Total 2169.2 4478 2513.8 1250 Output Total 1100 900 750 Balance 2169.2 3378 1613.8 500 Meds/Results Medications: Active Medications Generic Name Dose Route Start Last Admin Trade Name Freq PRN Reason Stop Dose Admin Acetaminophen 650 mg 02/21/25 14:05 02/21/25 23:08 Acetaminophen 325 Mg Tablet PO 650 mg Q4H PRN Administration Mild Pain (1-3) or Fever Amoxicillin/Clavulanate Potassium 1 tablet 02/24/25 09:00 02/24/25 20:25 Amoxicillin/Clavulanate K 875-125 Mg Tab PO 03/01/25 21:01 1 tablet Q12HR SHAKIR Administration Ascorbic Acid 1,000 mg 02/22/25 09:00 02/24/25 09:19 Ascorbic Acid 500 Mg Tablet PO 1,000 mg DAILY SHAKIR Administration Aspirin 81 mg 02/22/25 09:00 02/24/25 09:19 Aspirin 81 Mg Enteric Tablet PO 81 mg DAILY SHAKIR Administration Cyanocobalamin 1,000 mcg 02/22/25 09:00 02/24/25 09:19 Cyanocobalamin 1,000 Mcg Tablet PO 1,000 mcg DAILY SHAKIR Administration Donepezil HCl 10 mg 02/21/25 21:00 02/24/25 20:25 Donepezil Hcl 10 Mg Tablet PO 10 mg QHS SHAKIR Administration Fluticasone Propionate 2 spray 02/22/25 09:00 02/24/25 09:20 Fluticasone Propionate 0.05% Na Spr 16 Gm Btl (*Bkc) NASAL 2 spray DAILY SHAKIR Administration Lactated Ringer's 1,000 mls @ 125 mls/hr 02/21/25 14:05 02/25/25 00:37 Lr - Lactated Ringers Iv IV CONT 125 mls/hr .Q8H SHAKIR Administration Meloxicam 15 mg 02/22/25 09:00 02/24/25 09:19 Meloxicam 7.5 Mg Tablet PO 15 mg QAM SHAKIR Administration Memantine 10 mg 02/21/25 21:00 02/24/25 20:25 Memantine 10 Mg Tablet PO 10 mg Q12HR SHAKIR Administration Metoclopramide HCl 10 mg 02/21/25 16:31 Metoclopramide Hcl Inj 10 Mg/2 Ml Vial IV PUSH Q6HR PRN Nausea And Vomiting Multivitamins Therapeutic 1 tablet 02/22/25 09:00 02/24/25 09:19 Multivitamins Therapeutic Tab (*Bkc) PO 1 tablet DAILY SHAKIR Administration Pantoprazole Sodium 40 mg 02/22/25 09:00 02/24/25 20:25 Pantoprazole 40 Mg Tablet PO 40 mg Q12HR SHAKIR Administration Rosuvastatin Calcium 20 mg 02/22/25 09:00 02/24/25 09:19 Rosuvastatin 20 Mg Tablet PO 20 mg DAILY SHAKIR Administration Tamsulosin HCl 0.4 mg 02/22/25 09:00 02/24/25 09:19 Tamsulosin Hcl 0.4 Mg Capsule PO 0.4 mg DAILY SHAKIR Administration Trazodone HCl 100 mg 02/21/25 21:00 02/24/25 20:25 Trazodone Hcl 50 Mg Tablet PO 100 mg QHS SHAKIR Administration Radiology Results: ITS Impressions Head CT 02/21/25 13:42 IMPRESSION: 1. 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 No acute intracranial process. 2. Age-related changes including moderate diffuse volume loss and mild scattered white matter hypoattenuation consistent with chronic small vessel ischemic disease. Renal Ultrasound 02/21/25 17:31 IMPRESSION: No definite abnormality seen. Chest X-Ray 02/22/25 11:50 IMPRESSION: 1. Small lung volumes with increased initial pattern and bronchial wall thickening in both lungs with lower lung predominance. Differential would include mild pulmonary edema, bronchitis/pneumonia or reactive airway disease/asthma. Labs Labs: Laboratory Results - last 24 hr 02/25/25 05:03 WBC 6.0 RBC 3.08 L Hgb 9.3 L Hct 28.6 L MCV 92.9 MCH 30.2 MCHC 32.5 RDW 13.5 Plt Count 174 MPV 10.3 Immature Gran % (Auto) 0.5 Neut % (Auto) 67.4 Lymph % (Auto) 14.1 L [place] % (Auto) 12.0 H Eos % (Auto) 5.3 H Baso % (Auto) 0.7 Lymph # (Auto) 0.85 L [place] # (Auto) 0.7 H Eos # (Auto) 0.3 Baso # (Auto) 0.0 Abs Immat Gran (auto) 0.03 Absolute Neuts (auto) 4.1 Absolute Nucleated RBC 0.000 Nucleated RBC % 0.0 Sodium 135 L Potassium 3.6 Chloride 106 Carbon Dioxide 25 Anion Gap 4 BUN 13 Creatinine 1.01 Estim Creat Clear Calc 54 Estimated GFR > 60 Glucose 94 Calcium 8.0 L Total Bilirubin 0.7 AST 26 ALT 14 Alkaline Phosphatase 71 Total Protein 5.9 L Albumin 2.8 L Quality VTE Prophylaxis VTE prophylaxis: mechanical ordered
[2025-02-25] MEDS: PANTOPRAZOLE 40 MG TABLET PO ×2 (08:30→21:12)
[2025-02-25] MEDS: CYANOCOBALAMIN 1,000 MCG TABLET 1000 MCG PO (08:30)
[2025-02-25] MEDS: MELOXICAM 7.5 MG TABLET 15 MG PO (08:30)
[2025-02-25] MEDS: ROSUVASTATIN 20 MG TABLET PO (08:31)
[2025-02-25] MEDS: MEMANTINE 10 MG TABLET PO ×2 (08:31→21:12)
[2025-02-25] MEDS: ASCORBIC ACID 500 MG TABLET 1000 MG PO (08:31)
[2025-02-25] MEDS: FLUTICASONE PROPIONATE 0.05% NA SPR 16 GM BTL (*BKC) 2 SPRAY NASAL (08:31)
[2025-02-25] MEDS: MULTIVITAMINS THERAPEUTIC TAB (*BKC) 1 TABLET PO (08:31)
[2025-02-25] MEDS: TAMSULOSIN HCL 0.4 MG CAPSULE PO (08:31)
[2025-02-25] MEDS: ASPIRIN 81 MG ENTERIC TABLET PO (08:31)
[2025-02-25] MEDS: DONEPEZIL HCL 10 MG TABLET PO (21:12)
[2025-02-26 04:56] LABS: Hematocrit 28.1 % (42.0-52.0); Hemoglobin 9.0 g/dL (14.0-18.0); Immature Granulocyte Percent A 0.4 % (0-0.5); Lymphocytes Absolute Auto 0.90 K/mm3 (0.9-3.2); Mean Corpuscular HGB Conc 32.0 g/dl (32-36); Mean Corpuscular Hemoglobin 29.7 pg (26-34); Mean Corpuscular Volume 92.7 fl (80-100); Nucleated Red Blood Cells Absolute Auto 0.000 K/mm3 (0.0-0.012); Nucleated Red Blood Cells Perc 0.0 % (0.0-0.2); Platelet Count Result 174 k/mm3 (150-375); Red Blood Count 3.03 M/mm3 (4.6-6.20); White Blood Count 5.1 K/mm3 (4.5-10.0)
[2025-02-26 05:05] LABS: Alanine Aminotransferase 14 U/L (6-50); Albumin Level 2.6 g/dL (3.5-5.1); Alkaline Phosphatase 68 U/L (38-126); Anion Gap 6 mmol/L (4-12); Aspartate Amino Transferase 27 U/L (17-59); Bilirubin,Total 0.8 mg/dL (0.2-1.3); Blood Urea Nitrogen 11 mg/dL (9-20); Calcium 8.1 mg/dL (8.4-10.2); Carbon Dioxide 25 mmol/L (22-30); Chloride 107 mmol/L (98-107); Estimated CRCL calculation 51 ml/min; Estimated Glomerular Filt Rate > 60; Glucose 83 mg/dL (65-110); Potassium 3.5 mmol/L (3.4-5.0); Sodium 138 mmol/L (137-145); Total Protein 5.7 g/dL (6.3-8.2)
[2025-02-26 06:50] VITALS: BP 136/70; PULSE 72; RESP 16; TEMP 36.7; O2SAT 98
[2025-02-26] MEDS: TAMSULOSIN HCL 0.4 MG CAPSULE PO (10:07)
[2025-02-26] MEDS: ROSUVASTATIN 20 MG TABLET PO (10:07)
[2025-02-26] MEDS: CYANOCOBALAMIN 1,000 MCG TABLET 1000 MCG PO (10:08)
[2025-02-26] MEDS: PANTOPRAZOLE 40 MG TABLET PO (10:08)
[2025-02-26] MEDS: ASCORBIC ACID 500 MG TABLET 1000 MG PO (10:08)
[2025-02-26] MEDS: MEMANTINE 10 MG TABLET PO (10:08)
[2025-02-26] MEDS: MELOXICAM 7.5 MG TABLET 15 MG PO (10:08)
[2025-02-26] MEDS: ASPIRIN 81 MG ENTERIC TABLET PO (10:08)
[2025-02-26] MEDS: MULTIVITAMINS THERAPEUTIC TAB (*BKC) 1 TABLET PO (10:09)
[2025-02-26] MEDS: FLUTICASONE PROPIONATE 0.05% NA SPR 16 GM BTL (*BKC) 2 SPRAY NASAL (10:10)
--- NOTE | 2025-02-26 11:46 | P.DS_ITS ---
DS: Admitting Diagnosis Discharge Date 02/26/2025 Admitting Diagnosis Pneumonia, UTI, weakness DS: Discharge Diagnosis Discharge Diagnosis (1) Sepsis: Qualifiers: Acute renal failure type: unspecified Sepsis acute organ dysfunction status: with acute organ dysfunction Sepsis type: sepsis due to unspecified organism Severe sepsis acute organ dysfunction type: acute renal failure Severe sepsis shock status: without septic shock Qualified Code(s): A41.9 - Sepsis, unspecified organism; R65.20 - Severe sepsis without septic shock; N17.9 - Acute kidney failure, unspecified Code(s): A41.9 - Sepsis, unspecified organism Status: Acute (2) UTI (urinary tract infection): Qualifiers: Hematuria presence: without hematuria Urinary tract infection type: acute cystitis Qualified Code(s): N30.00 - Acute cystitis without hematuria Code(s): N39.0 - Urinary tract infection, site not specified Status: Acute (3) NHUNG (acute kidney injury): Code(s): N17.9 - Acute kidney failure, unspecified Status: Acute (4) Recurrent falls: Code(s): R29.6 - Repeated falls Status: Acute (5) Hypotension: Code(s): I95.9 - Hypotension, unspecified Status: Acute (6) Dementia: Qualifiers: Dementia behavioral or psychological symptom: with anxiety Dementia severity: unspecified severity Dementia type: unspecified type Qualified Code(s): F03.94 - Unspecified dementia, unspecified severity, with anxiety Code(s): F03.90 - Unspecified dementia, unspecified severity, without behavioral disturbance, psychotic disturbance, mood disturbance, and anxiety Status: Chronic (7) Abnormal chest xray: Code(s): R93.89 - Abnormal findings on diagnostic imaging of other specified body structures Status: Acute DS: Summary Hospital Course Reason for hospitalization: Falls Hospital Course: 89 y/o M with PMH of dementia, BPH, and hyperlipidemia (based off patient's outside meds, unable to confirm with patient or ) presents here with low blood pressure readings. The patient presents here from home on 02/21 for further evaluation of low blood pressure readings at home. He was initially evaluated by his PCP on 02/19, at the time he reported 5 falls home within the last 2 weeks and, lower blood pressure, and weight loss. At that time and was recommended that he push fluids/ hydration, begin a more liberal salt diet, change positions slowly, and work away from utilizing Ativan for his generalized anxiety. he was instructed to follow up in 1 week. He had a basic lab work drawn which showed stable anemia, no significant electrolyte derangements, and his renal function was at baseline. Patient's family then called his PCP today with recurrent low blood pressure readings. Practitioner advised them to come to the hospital for further evaluation. Upon further investigation, the patient denies any trauma or loss of consciousness associated with his recurrent falls. He is currently denying chest pain, shortness of breath, palpitations, nausea, vomiting, diarrhea, fever, chills, dysuria, urinary frequency, urinary hesitancy, or abdominal pain. Of note, the patient has a history of recurrent UTIs with last occurrence in November. Patient poor historian. Initial VS at presentation: 98.6? F, HR 97, R 14, 115/63, and 98% on RA. ED workup showed: WBC 14.1, hemoglobin 10.5, creatinine 1.59 and GFR 41 (1.24 and GFR 56 on 02/19 ), lactic 1.8, CRP 2.7, TSH 0.46 with normal T4/T3, and UA consistent with UTI. CXR showed small lung volumes with mild bibasilar atelectasis. 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 Throughout hospitalization patient was treated for UTI and suspected pneumonia. Patient and point any fevers, leukocytosis or adventitious breath sounds, however x-ray showed possible evidence of pneumonia. Patient was started on IV antibiotics for coverage of these underlying infections and was eventually switched to oral Augmentin to cover both infections. Urine culture showed growth of E coli with mancilla sensitivity. Blood cultures were negative for any growth. Patient is otherwise hemodynamically stable can be discharged. PT/OT recommends continued rehab therapy, will plan on discharging patient to SNF. Patient was accepted at [facility] and can be discharged at this time on continued oral antibiotic coverage. Patient and , along with daughter are amenable to this plan. Status at Discharge Functional status at discharge: uses cane/walker Overall status at discharge: patient is progressing back to baseline Time Spent with Patient Time attestation: Total time spent providing and/or coordinating discharge services: 47 Exam Narrative: A/O to self, place, reported it was 2023 or 2024. Poor situational recall. Const: General: comfortable and no acute distress Other: , male, elderly, nontoxic appearance HENMT: Face/Nose/Sinus: Normal nares present Mouth: Yes moist mucous membranes Eyes: General: appearance normal, both eyes and all related structures Sclera: sclerae normal Pupils: Equal, round and reactive pupils present EOM: EOMs intact bilaterally Resp: Effort & Inspection: normal respiratory effort Auscultation: clear to auscultation bilaterally Cardio: Rate: regular rate Rhythm: regular rhythm Other: S1-S2 present without murmur, rub, ectopy GI: Other: Abdomen soft, nondistended, nontender. Normoactive bowel sounds in all quadrants. Skin: General skin exam: normal color and no rashes or lesions noted Wounds: no wounds Neuro: Cranial nerves: Yes Equal, round and reactive pupils present Speech: normal speech Motor exam (neuro): 5/5 motor strength present throughout Sensory Exam: normal sensation Other: A/O to self, place, reported it was 2023 or 2024. Poor situational recall. Though patient is able to answer most orientation question, he has occasional disorganized thought content evidenced by off topic questions. Extrem: General: normal to inspection Psych: Mental Status: mental status grossly normal Affect: normal affect Other: fair to poor insight and judgment at present, pleasant DS: Data Data Completed and Pending Labs on day of discharge: Labs from last 24 hours 02/26/25 04:38 WBC 5.1 RBC 3.03 L Hgb 9.0 L Hct 28.1 L MCV 92.7 MCH 29.7 MCHC 32.0 RDW 13.4 Plt Count 174 MPV 10.6 H Immature Gran % (Auto) 0.4 Neut % (Auto) 63.0 Lymph % (Auto) 17.5 L Vermilion % (Auto) 11.9 H Eos % (Auto) 6.2 H Baso % (Auto) 1.0 Lymph # (Auto) 0.90 Vermilion # (Auto) 0.6 Eos # (Auto) 0.3 Baso # (Auto) 0.1 Abs Immat Gran (auto) 0.02 Absolute Neuts (auto) 3.2 Absolute Nucleated RBC 0.000 Nucleated RBC % 0.0 Sodium 138 Potassium 3.5 Chloride 107 Carbon Dioxide 25 Anion Gap 6 BUN 11 Creatinine 1.06 Estim Creat Clear Calc 51 Estimated GFR > 60 Glucose 83 Calcium 8.1 L Total Bilirubin 0.8 AST 27 ALT 14 Alkaline Phosphatase 68 Total Protein 5.7 L Albumin 2.6 L Preliminary micro results at discharge 02/21/25 12:46 Blood Culture - Preliminary Blood 02/21/25 12:50 Blood Culture - Preliminary Blood Discharge Plan Discharge Attending physician on discharge: Huber Khan Consulting providers: Valdez Rhodes Discharging Clinician: Valdez Rhodes Anticipated Discharge Date/Time: 02/26/25 11:39 Patient Disposition: SNF Activity: december shower Diet: regular Discharge Instructions: Discharge disposition: SNF, stable Take medications as prescribed. You will be given 7 additional doses of Augmentin to take for your Pneumonia and Urinary Tract Infection. Take this medication twice daily until 03/01 evening. Monitor blood pressures Take caution while standing, rising, or moving Change positions slowly taking a break between each position change If you standing feel dizzy sit back down and take a break Encouraged to continue with yearly vaccinations Return to the emergency department if he developed sudden shortness of breath, chest pain, nausea, vomiting, upset stomach or intractable diarrhea Return to the emergency department if you develop fever greater than 101.5 Follow-up with the primary care physician within 1-2 weeks Thank you for choosing [facility] for your healthcare needs Patient Instructions: Aspirin (By mouth), Meloxicam (By mouth), Safe Use of Anticoagulants (GEN), Blood Thinners (GEN) Patient Language: Prydeinig Stand Alone Forms: General Discharge Information Follow-up/Referrals: Vik Villalba MD [Primary Care Provider] - Discharge Medications: New amoxicillin-pot clavulanate 875-125 mg tablet 1 tablet PO Q12H Qty: 7 0RF Continued aspirin [Adult Low Dose Aspirin] 81 mg tablet,delayed release (DR/EC) 81 mg PO DAILY multivitamin Tablet 1 tablet PO DAILY ascorbic acid (vitamin C) 1,000 mg tablet 1 g PO DAILY rosuvastatin 20 mg tablet 20 mg PO DAILY fluticasone propionate 50 mcg/actuation spray,suspension 2 spray intranasal DAILY Qty: 48 2RF Rx Instructions: administer into each nostril mecobalamin (vitamin B12) [B12 Active] 1,000 mcg tablet,chewable 1,000 mcg PO DAILY meloxicam 15 mg tablet See Rx Instructions .ROUTE .COMPLEX Qty: 90 2RF Dose Instruction: TAKE 1 TABLET BY MOUTH EVERY DAY Rx Instructions: TAKE 1 TABLET BY MOUTH EVERY DAY memantine 10 mg tablet 10 mg PO BID Qty: 180 3RF lorazepam 0.5 mg tablet 0.5 mg PO QHS PRN (Reason: anxiety) Qty: 30 4RF tamsulosin 0.4 mg capsule 0.4 mg PO DAILY Qty: 90 2RF trazodone 100 mg tablet 100 mg PO QHS Qty: 90 2RF donepezil 10 mg tablet 10 mg PO QHS Qty: 90 3RF pantoprazole 40 mg tablet,delayed release (DR/EC) See Rx Instructions .ROUTE .COMPLEX Qty: 180 1RF Dose Instruction: TAKE 1 TABLET BY MOUTH TWICE A DAY Rx Instructions: TAKE 1 TABLET BY MOUTH TWICE A DAY Date of admission: 02/21/25 14:05 Primary Care Provider: Vik Villalba Admitting Provider: Jocelyn Huitron Attending physician on admission: Jocelyn Huitron Condition: Stable Quality VTE Prophylaxis VTE prophylaxis: mechanical ordered
--- NOTE | 2025-02-26 13:59 | P.CDI_ITS ---
CDI Query Clarification Request BMI: 22.9 Nutritional Diagnostic Statement: Please refer to the comprehensive nutrition assessment for further information. If you agree with diagnosis of Severe protein calorie malnutrition related to chronic dementia, loss of appetite as evidenced by weight loss 10%/ 3 months; intakes <75% needs >1 month; moderate muscle wasting and fat loss. Please specify severity if known: * Mild * Moderate * Severe * Other/Unknown <Nupur Salcido RN - Last Filed: 02/26/25 14:00> Clarified Diagnosis Clarified Diagnosis: Agree with severe protein calorie malnutrition <Valdez Rhodes PA-C - Last Filed: 02/26/25 14:23>
== END 2025-02-26 13:35 | DRG 871 ==
LOC: ANHED 12:09 → ANH2MED 21:08 → ANH3MEDSUR 02-27 14:09
PROVIDERS: Student in an Organized Health Care Education/Training Program; Admitting Provider Internal Medicine; Emergency Provider Student in an Organized Health Care Education/Training Program; PCP Family Medicine Adolescent Medicine; Visit Provider Physician Assistant
DX: A41.9 Sepsis, unspecified organism (principal); E43 Unspecified severe protein-calorie malnutrition; J18.9 Pneumonia, unspecified organism; N17.9 Acute kidney failure, unspecified; N39.0 Urinary tract infection, site not specified; Z68.1 Body mass index [BMI] 19.9 or less, adult; R65.20 Severe sepsis without septic shock; B96.20 Unspecified Escherichia coli [E. coli] as the cause of diseases classified elsewhere; F03.90 Unspecified dementia, unspecified severity, without behavioral disturbance, psychotic disturbance, mood disturbance, and anxiety; F41.1 Generalized anxiety disorder; E78.5 Hyperlipidemia, unspecified; N40.0 Benign prostatic hyperplasia without lower urinary tract symptoms; R29.6 Repeated falls; Z96.612 Presence of left artificial shoulder joint; Z95.2 Presence of prosthetic heart valve; Z90.49 Acquired absence of other specified parts of digestive tract
CPT/HCPCS: 36415; 70450; 71045; 71046; 76775; 80053; 81001; 83605; 83735; 84439; 84443; 84480; 85025; 86140; 87040; 87086; 87186; 87637; 93005; 96361; 96365; 96375; 97162; 97165; 97530; 99285; A9270; J0696; J7120

== ENCOUNTER 2025-04-03 10:32 | Emergency (ER) | payer OTHER, SELFPAY ==
--- NOTE | ~2025-04-03 | CT_ITS ---
EXAMINATION: CT brain wo con DATE: 04/03/2025 11:14 INDICATION: Fall with altered mental status TECHNIQUE: Computed tomography (CT) of the head was performed without intravenous contrast. Sagittal and coronal reconstructions were performed. The mA was adjusted according to patient size. Iterative reconstruction technique was employed. The dose-length product was 681.00 mGy-cm. COMPARISON: head CT dated 02/21/2025 FINDINGS: No fracture. No acute intracranial hemorrhage, acute infarction or abnormal extra axial fluid collect ion. 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 There is mild to moderate scatt ered white matter hypoattenuation consistent with chronic small vessel ischemic disease. Symmetric pr ominence of the sulci and ventricles consistent with moderate age-appropriate diffuse cerebral volum e loss. No mass/mass effect. Changes of bilateral intraocular lens replacement. The orbits and mastoi d air cells are normal. Mild mucosal thickening in the bilateral ethmoid sinuses and single sphenoid sinus. IMPRESSION: 1. No fracture or acute intracranial process. 2. Age-related changes including moderate diffuse volume loss and mild to moderate scattered white ma tter hypoattenuation consistent with chronic small vessel ischemic disease. Reviewed, dictated and finalized at location A. IMPRESSION: 1. No fracture or acute intracranial process. 2. Age-related changes including moderate diffuse volume loss and mild to moder ate scattered white matter hypoattenuation consistent with chronic small vessel ischemic disease.
--- NOTE | ~2025-04-03 | XR_ITS ---
Exam: X-ray lumbar spine 2-3 views. Clinical history: Fall. Comparisons: None available. Correlation: CT abdomen and pelvis 01/16/2025 TECHNIQUE: 3 images of the lumbar spine were obtained. FINDINGS: Moderate levoconvex curvature of the lumbar spine. Bones appear osteopenic. Cholecystectomy clips are present. Moderate to severe compression fracture of L1 vertebral body which is stable as compared to the CT st udy from 01/16/2025. Slight bony irregularity of the inferior and superior endplates of the L2 vertebral body which is sim ilar to the CT study from 01/16/2025. Severe compression fracture of the T11 vertebral body which is stable as compared to study from 2024. No new compression fracture in the lumbar spine. Grade 1 anterolisthesis of L5 on S1. Moderate joint space narrowing throughout the lumbar spine. Moderate degenerative changes mid and low er lumbar facet joints. Vascular calcifications in the aorta. Hardware is noted in the right hip. IMPRESSION: 1. No new compression fracture in the lumbar spine. 2.Moderate to severe compression fracture of L1 vertebral body which is stable as compared to the CT study from 01/16/2025. 3.Slight bony irregularity of the inferior and superior endplates of the L2 vertebral body which is s imilar to the CT study from 01/16/2025. 4.Severe compression fracture of the T11 vertebral body which is stable as compared to study from 12/22. 5.Grade 1 anterolisthesis of L5 on S1, unchanged. If symptoms persist or worsen, consider an MRI of the lumbar spine for further assessment. Reviewed, dictated and finalized at location A. IMPRESSION: 1. No new compression fracture in the lumbar spine. 2.Moderate to severe compression fracture of L1 vertebral body which is stable as compared to the CT study from 01/16/2025. 3.Slight bony irregularity of the inferior and superior endplates of the L2 kayy tebral body which is similar to the CT study from 01/16/2025. 4.Severe compression fracture of the T11 vertebral body which is stable as comp ared to study from 01/16/2025. 5.Grade 1 anterolisthesis of L5 on S1, unchanged. If symptoms persist or worsen, consider an MRI of the lumbar spine for further assessment.
[2025-04-03 10:32] VITALS: BP 132/81; PULSE 83; RESP 17; TEMP 36.6; O2SAT 100
[2025-04-03 10:46] VITALS: BP 132/81; PULSE 82; RESP 14; TEMP 36.5; O2SAT 100
--- NOTE | 2025-04-03 11:16 | ED.FALL ---
HPI - Fall General Chief Complaint: Fall Stated Complaint: fall Time Seen by Provider: 04/03/25 10:34 History of Present Illness HPI Narrative: Pt reportedly suffered ground level fall at home this morning. Pt has baseline dementia and is alert and oriented x 1 baseline. Pt has no complaints now but has laceration to left 3rd pip knuckle and abrasion to low back. Pt denies MONTOYA or neck pain. Pt reportedly has frequent uti's and told triage he had burning with urination but denies that now. Related Data Home Medications ?Medication ?Instructions ?Recorded ?Confirmed ?Last Taken ?Type ascorbic acid (vitamin C) 1,000 mg 1 g PO DAILY 09/03/21 02/21/25 02/20/25 History tablet aspirin 81 mg tablet,delayed 81 mg PO DAILY 09/03/21 02/21/25 02/20/25 History release (Adult Low Dose Aspirin) multivitamin 1 tablet PO DAILY 09/03/21 02/21/25 02/20/25 History rosuvastatin 20 mg tablet 20 mg PO DAILY 11/13/22 02/21/25 02/20/25 History mecobalamin (vitamin B12) 1,000 1,000 mcg PO DAILY 04/07/23 02/21/25 02/20/25 History mcg chewable tablet (B12 Active) Allergies Allergy/AdvReac Type Severity Reaction Status Date / Time bupropion AdvReac Intermediate tremors Verified 04/03/25 10:45 rosuvastatin AdvReac Mild diarrhea Verified 04/03/25 10:45 temazepam AdvReac Mild Unknown Verified 04/03/25 10:45 Review of Systems Review of Systems: All systems reviewed & are unremarkable except as noted in HPI and below ROS unobtainable: Yes unobtainable due to mental status [facility] Past Medical History Medical History (Updated 04/03/25 @ 13:49 by Norm Peterson III, DO) Traumatic amputation of second toe osteomyelitis Surgical History Surgical History History of aortic valve replacement (2013) History of inguinal hernia repair (2010) Status post reverse arthroplasty of left shoulder (2015) 03/07 Hx laparoscopic cholecystectomy (2010) Family History Family History Father Cancer Mother Cancer Daughter Lung cancer Social History Social History Smoking status: Former smoker Alcohol intake: current Drinks per week: 14 Substance use: never Substance use type: does not use Lack of Transportation: No Lack of Food: Never True Current Housing: I Have Housing Concerned About Future Housing: No Difficulty Paying Gas/Electric Bills: No Difficulty Paying for Meds: No Currently Unemployed: No Education: Master's Degree or Higher Difficulty w/ Childcare or Family Care: No Living arrangements: with family Occupation/Education: retired Gender identity (if verbalized by the patient): Male Sexual Orientation (if Verbalized by the Patient): Straight or Heterosexual Spiritual care concerns: No Agree to blood products: Yes Exam Const: General: no acute distress Nutritional Appearance: well nourished Limitations: other limitations (dementia) HENMT: Head: normal to inspection Eyes: Pupils: Equal, round and reactive pupils present EOM: EOMs intact bilaterally Neck: Neck: normal visual inspection and no meningeal signs Chest: Chest palpation & inspection: normal inspection of the chest Resp: Effort & Inspection: normal respiratory effort Auscultation: clear to auscultation bilaterally Cardio: Rate: regular rate Rhythm: regular rhythm GI: GI Palp: Yes Soft to palpation and No Tenderness to palpation present (GI) Auscultation: normal bowel sounds Skin: Other: abrasion to low back, laceration 1 cm to knuckle over left 3rd pip joint Neuro: General: moves all extremities Speech: normal speech Extrem: General: no clubbing, cyanosis or edema Psych: Attitude: cooperative Course Vital Signs Vital signs: Vital Signs Temperature 97.9 F 04/03/25 10:32 Pulse Rate 83 04/03/25 10:32 Respiratory Rate 17 04/03/25 10:32 Blood Pressure 132/81 04/03/25 10:32 Pulse Oximetry 100 04/03/25 10:32 Oxygen Delivery Room Air 04/03/25 10:32 Temperature 97.7 F 04/03/25 10:46 Pulse Rate 76 04/03/25 12:55 Respiratory Rate 17 04/03/25 12:55 Blood Pressure 128/73 04/03/25 12:55 Pulse Oximetry 100 04/03/25 12:55 Oxygen Delivery Room Air 04/03/25 10:32 Procedures Laceration Laceration 1: Site: hand Side (If applicable): left Size (cm): 1 Description: flap Depth: simple, single layer Local Anesthetic: lidocaine 1% Amount of anesthesia used (mL): 3 ====== Skin Level ====== Skin layer closed with: nylon Size (cm): 4-0 Number of sutures: 3 Technique: simple, interrupted ====== Subcutaneous Layer ====== ====== Muscle Layer ====== ====== Tendon Layer ====== MDM - Fall MDM Narrative Medical decision making narrative: Pt reportedly suffered ground level fall at home. Pt is demented so his history is unreliable. Pt reported to triage that he had dysuria but denies now. will check ua. pt has small lac to left third finger which will need repari. will x ray lumbar spine and ct brain to rule out fx or injury. ct neg, ua positive will give rocephin shot. sutured laceration on finger. had long discussion with family about placement and the family is going ot work on placement from [facility] Lab Data Labs: Lab Results 04/03/25 Range/Units 12:27 Urine Color Yellow (Yellow) Urine Appearance Cloudy H (Clear) Urine pH 5.0 (5.0-9.0) Ur Specific [place] 1.015 (1.001-1.035) Urine Protein Negative (Negative) mg/dL Urine Glucose (UA) Negative (Negative) mg/dL Urine Ketones Trace H (Negative) mg/dL Ur Blood (Man) Non-hemolyzed trace (Negative) Urine Nitrate Positive H (Negative) Urine Bilirubin Negative (Negative) Urine Urobilinogen 0.2 (<2.0) mg/dL Leukocyte Esterase Rfl 2+ H (Negative) LILI/UL Urine RBC 6-10 H (0-2) /hpf Urine WBC 21-50 H (0-3) /hpf Ur Squamous Epith Cells None seen (Few) /hpf Urine Bacteria 2+ H /hpf Urine Casts 0-2 Discharge Plan Discharge Clinical Impression: Acute UTI, Laceration Patient Disposition: Home Condition: Improved Instructions: Antibiotic Form, Finger Laceration (ED), Urinary Tract Infection in Older Adults (ED) Additional Instructions: suture removal 7-10 days Patient Language: Persian Prescriptions: No Action aspirin [Adult Low Dose Aspirin] 81 mg tablet,delayed release (DR/EC) 81 mg PO DAILY multivitamin Tablet 1 tablet PO DAILY ascorbic acid (vitamin C) 1,000 mg tablet 1 g PO DAILY rosuvastatin 20 mg tablet 20 mg PO DAILY fluticasone propionate 50 mcg/actuation spray,suspension 2 spray intranasal DAILY Qty: 48 2RF Rx Instructions: administer into each nostril mecobalamin (vitamin B12) [B12 Active] 1,000 mcg tablet,chewable 1,000 mcg PO DAILY amoxicillin-pot clavulanate 875-125 mg tablet 1 tablet PO Q12H Qty: 7 0RF meloxicam 15 mg tablet See Rx Instructions .ROUTE .COMPLEX Qty: 90 2RF Dose Instruction: TAKE 1 TABLET BY MOUTH EVERY DAY Rx Instructions: TAKE 1 TABLET BY MOUTH EVERY DAY memantine 10 mg tablet 10 mg PO BID Qty: 180 3RF lorazepam 0.5 mg tablet 0.5 mg PO QHS PRN (Reason: anxiety) Qty: 30 4RF tamsulosin 0.4 mg capsule 0.4 mg PO DAILY Qty: 90 2RF trazodone 100 mg tablet 100 mg PO QHS Qty: 90 2RF donepezil 10 mg tablet 10 mg PO QHS Qty: 90 3RF pantoprazole 40 mg tablet,delayed release (DR/EC) See Rx Instructions .ROUTE .COMPLEX Qty: 180 1RF Dose Instruction: TAKE 1 TABLET BY MOUTH TWICE A DAY Rx Instructions: TAKE 1 TABLET BY MOUTH TWICE A DAY Follow-up/Referrals: Vik Villalba MD [Primary Care Provider] -
[2025-04-03 11:27] VITALS: BP 123/71; PULSE 77; RESP 16; O2SAT 100
--- OUTSIDE RECORDS SUMMARY | 2025-04-03 11:41 | XMS_ITS ---
Author Name DEONTE SO M.D. Address [address] [facility] [place] [address] Phone [phone] Organization [facility]) Care Team Providers Care Marble And Granite Polisher Name Role Phone DEONTE SO Unavailable [phone] Sukhwinder Cuevas Unavailable [phone] Vik Villalba Unavailable [phone] Reason for Referral Not Available Allergies, adverse [...] tive Time Current Smoking Status Former smoker 2025-03-23 2 Sex Male History of Procedures Procedures Service Procedure code Service date Servicing provider Phone# Home visit for evaluation and management of new patient requiring medically appropriate examination and moderate level of medical decision making. If using time, at least 60 minutes total time on enco [id number] 2024-11-09 No Data Available No Data Availa [...] Patient lives spouse. Closest daughter is in [place], [place]. He is independent with his care regarding ADL's, but relies on for other things as he has dementia. He does not use any form of assistive device for ambulation.
--- OUTSIDE RECORDS SUMMARY | 2025-04-03 11:41 | XMS_ITS | Clinical Summary ---
Author Organization [facility] Address [address] [place] [id number] Care Team Providers Care Marina Sales And Service Supervisor Name Role Phone Unavailable Primary Care Provider [...]
--- OUTSIDE RECORDS SUMMARY | 2025-04-03 11:41 | XMS_ITS | Encounter Summary ---
Author Organization [facility] Address [address] [address] Care Team Providers Care Traffic Signal Supervisor Maintenance Name Role Phone Vik Villalba MD Primary Care Prov ider Vik Villalba MD Primary Care Prov ider Encounter Details Date Type Department Care Team (Late st Contact Info) Description 02/11/2016 Orders Only [facility] ProviderMarisel MD [address] [place] [id number] Social History Tobacco Use Types Packs/Day Years Used Date Smoking Tobacco: Former Cigarettes Q uit: 08/23/1969 Alcohol Use Standard Drinks/Week Comments Yes 0 (1 standard drink = 0.6 oz pur e alcohol) Sex and Gender Information Value Date Recorded Sex Assigned at Not on file 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
--- OUTSIDE RECORDS SUMMARY | 2025-04-03 11:41 | XMS_ITS | Clinical Summary ---
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 Care Teams Fishing Tackle Repairer Relationship Specialty Start Date End Date Vik Villalba MD [address] [place] [address] PCP - General 11/06/16
[2025-04-03 12:37] LABS: Add Urine Microscopic? YES; Appearance Urine Cloudy (Clear); Glucose Urine UA Negative (Negative); Leukocyte Esterase Ur 2+ LEU/UL (Negative); Nitrate Urine Positive (Negative); Non Pathogenic Casts 0-2; Specific Grav Ur 1.015 (1.001-1.035)
[2025-04-03 12:55] VITALS: BP 128/73; PULSE 76; RESP 17; O2SAT 100
[2025-04-03] MEDS: LIDOCAINE 1% LOCAL INJ 10 ML VIAL (13:23)
[2025-04-03] MEDS: cefTRIAXone 1 GM VIAL IM (13:45)
[2025-04-03 14:10] VITALS: BP 117/73; PULSE 70; RESP 17; O2SAT 97
== END 2025-04-03 14:11 | disposition home or self-care (01) ==
PROVIDERS: Emergency Provider Emergency Medicine; PCP Family Medicine Adolescent Medicine
DX: N39.0 Urinary tract infection, site not specified (principal); S61.213A Laceration without foreign body of left middle finger without damage to nail, initial encounter; S30.810A Abrasion of lower back and pelvis, initial encounter; F03.90 Unspecified dementia, unspecified severity, without behavioral disturbance, psychotic disturbance, mood disturbance, and anxiety; Z87.891 Personal history of nicotine dependence; W19.XXXA Unspecified fall, initial encounter
CPT/HCPCS: 12001; 70450; 72100; 81001; 87086; 96372; 99284; J0696; J2003

== ENCOUNTER 2025-04-13 16:59 | Emergency (ER) | payer OTHER, SELFPAY ==
--- OUTSIDE RECORDS SUMMARY | 2025-04-13 17:01 | XMS_ITS | Encounter Summary ---
Author Organization [facility] Address [address] [address] Care Team Providers Care Buyer Assistant Name Role Phone Vik Villalba MD Primary Care Prov ider Vik Villalba MD Primary Care Prov ider Encounter Details Date Type Department Care Team (Late st Contact Info) Description 02/11/2016 Orders Only [facility] ProviderMarisel MD [address] [place] [id number] Social History Tobacco Use Types Packs/Day Years Used Date Smoking Tobacco: Former Cigarettes Q uit: 08/23/1969 Alcohol Use Standard Drinks/Week Comments Yes 0 (1 standard drink = 0.6 oz pur e alcohol) Sex and Gender Information Value Date Recorded Sex Assigned at Not on file Legal Sex Male 7:29 PM ASSISTANT SALES DIRECTOR Gender Identity Not on file Sexual Orientation Don't know 09/24/2021 9: 14 AM ASSISTANT SALES DIRECTOR Sexual Orientation Straight 09/24/2021 9: 14 AM ASSISTANT SALES DIRECTOR documented as of this encounter Plan of [...] on filedocumented in this encounter Care Teams Buyer Assistant Relationship Specialty Start Date End Date Vik Villalba MD [address] [place] [address] PCP - General 11/06/16 Vik Villalba MD [address] [place] [address] PCP - General 12/05/14 11/05/16 documented as of this encounter
--- OUTSIDE RECORDS SUMMARY | 2025-04-13 17:01 | XMS_ITS | Clinical Summary ---
Author Organization [facility] Address [address] [place] [address] Care Team Providers Care Gse Mechanic Name Role Phone Unavailable Primary Care Provider [...] this topic Meningococcal Vaccine Aged Out No jroje lexii eligible based on patient's age to complete this topic RSV Immunizations Under 20 Months Aged Out No longer eligible based on patient's age to complete this topic
--- OUTSIDE RECORDS SUMMARY | 2025-04-13 17:01 | XMS_ITS | Clinical Summary ---
Author Organization [facility] [address] Address [address] [address] Care Team Providers Care Marina Sales And Service Supervisor Name Role Phone Vik Villalba MD Primary [...] TAKE 1 TABLET BY MOUTH EVERY DAY 30 tablet 04/09/20 25 Active rosuvastatin (CRESTOR) 20 mg tablet TAKE 1 TABLET BY MOUTH EVERY DAY 90 tablet 01/09/20 25 025 Discontinued Active Problems Problem Noted Date [...] on file Legal Sex Male 7:29 PM MACHINE INKER Gender Identity Not on file Sexual Orientation Don't know 09/24/2021 9: 14 AM MACHINE INKER Sexual Orientation Straight 09/24/2021 9: 14 AM MACHINE INKER Obstetrics History Last Filed Vital Signs Vital Sign Reading Time Taken Comments Blood Pressure 138/86 02/16/2024 2:07 PM CDT Pulse 88 02/16/2024 2:07 PM CDT Temperature 36.7 C (98 F) 09/05/2020 1:00 PM MACHINE INKER Respiratory Rate 12 08/02/2019 9:20 AM MACHINE INKER Oxygen Saturation 97% 02/16/2024 2:07 PM CDT [...] - Td or Tdap) 02/13/[address] [facility] Care Teams Marina Sales And Service Supervisor Relationship Specialty Start Date End Date Vik Villalba MD [address] [place] [address] PCP - General 11/06/16
--- OUTSIDE RECORDS SUMMARY | 2025-04-13 17:01 | XMS_ITS ---
Author Name DEONTE SO M.D. Address [address] [facility] [place] [address] Phone [phone] Organization [facility] ([facility]) Care Team Providers Care Applied Anthropologist Name Role Phone DEONTE SO Unavailable [phone] Sukhwinder Cuevas Unavailable [phone] Vik Villalba Unavailable [phone] Reason for Referral Not Available Allergies, adverse [...] tive Time Current Smoking Status Former smoker 2025-03-24 2 Sex Male History of Procedures Procedures Service Procedure code Service date Servicing provider Phone# Home visit for evaluation and management of new patient requiring medically appropriate examination and moderate level of medical decision making. If using time, at least 60 minutes [place] time on enco [id number] 2024-11-09 No Data Available No Data Availa [...] Patient lives spouse. Closest daughter is in [place], [place]. He is independent with his care regarding ADL's, but relies on for other things as he has dementia. He does not use any form of assistive device for ambulation.
[2025-04-13 17:09] VITALS: BP 134/72; PULSE 87; RESP 18; TEMP 36.6; O2SAT 97
--- NOTE | 2025-04-13 17:28 | ED.WOUNDLAC ---
HPI - Wound/Laceration General Chief Complaint: Wound/Laceration Stated Complaint: wound Time Seen by Provider: 04/13/25 17:17 History of Present Illness HPI narrative: Patient is an 89-year-old male who presents to the ER for suture removal. They were placed in his left 3rd digit 10 days ago. No complications. No fevers or redness. Related Data Home Medications ?Medication ?Instructions ?Recorded ?Confirmed ?Last Taken ?Type ascorbic acid (vitamin C) 1,000 mg 1 g PO DAILY 09/03/21 02/21/25 02/20/25 History tablet aspirin 81 mg tablet,delayed 81 mg PO DAILY 09/03/21 02/21/25 02/20/25 History release (Adult Low Dose Aspirin) multivitamin 1 tablet PO DAILY 09/03/21 02/21/25 02/20/25 History rosuvastatin 20 mg tablet 20 mg PO DAILY 11/13/22 02/21/25 02/20/25 History mecobalamin (vitamin B12) 1,000 1,000 mcg PO DAILY 04/07/23 02/21/25 02/20/25 History mcg chewable tablet (B12 Active) Allergies Allergy/AdvReac Type Severity Reaction Status Date / Time bupropion AdvReac Intermediate tremors Verified 04/13/25 17:00 rosuvastatin AdvReac Mild diarrhea Verified 04/13/25 17:00 temazepam AdvReac Mild Unknown Verified 04/13/25 17:00 Review of Systems Constitutional: Constitutional: Reports no additional constitutional complaints PMFSH Past Medical History Medical History (Updated 04/13/25 @ 17:29 by Lorne Dwyer MD) Traumatic amputation of second toe osteomyelitis Surgical History Surgical History History of aortic valve replacement (2013) History of inguinal hernia repair (2010) Status post reverse arthroplasty of left shoulder (2015) 03/07 Hx laparoscopic cholecystectomy (2010) Family History Family History Father Cancer Mother Cancer Daughter Lung cancer Social History Social History Smoking status: Former smoker Alcohol intake: current Drinks per week: 14 Substance use: never Substance use type: does not use Lack of Transportation: No Lack of Food: Never True Current Housing: I Have Housing Concerned About Future Housing: No Difficulty Paying Gas/Electric Bills: No Difficulty Paying for Meds: No Currently Unemployed: No Education: Master's Degree or Higher Difficulty w/ Childcare or Family Care: No Living arrangements: with family Occupation/Education: retired Gender identity (if verbalized by the patient): Male Sexual Orientation (if Verbalized by the Patient): Straight or Heterosexual Spiritual care concerns: No Agree to blood products: Yes Exam Narrative: GENERAL: Well-appearing, well-nourished, and in no acute distress. HEAD: Normocephalic, atraumatic. EXTREMITIES: Normal range of motion. No edema. SKIN: Warm, dry, no rash. Well-healed laceration left 3rd digit at the PIP. NEURO: Alert and oriented x3. PSYCH: Normal mood and affect. Course Course Emergency Course: Sutures removed with iris scissors and bayonet forceps. No issue. Vital Signs Vital signs: Vital Signs Temperature 97.9 F 04/13/25 17:09 Pulse Rate 87 04/13/25 17:09 Respiratory Rate 18 04/13/25 17:09 Blood Pressure 134/72 04/13/25 17:09 Pulse Oximetry 97 04/13/25 17:09 Temperature 97.9 F 04/13/25 17:09 Pulse Rate 87 04/13/25 17:09 Respiratory Rate 18 04/13/25 17:09 Blood Pressure 134/72 04/13/25 17:09 Pulse Oximetry 97 04/13/25 17:09 Discharge Plan Discharge Clinical Impression: Encounter for removal of sutures Patient Disposition: Home Condition: Stable Additional Instructions: Your wound healed without issue. Patient Language: South Sudanese Prescriptions: No Action aspirin [Adult Low Dose Aspirin] 81 mg tablet,delayed release (DR/EC) 81 mg PO DAILY multivitamin Tablet 1 tablet PO DAILY ascorbic acid (vitamin C) 1,000 mg tablet 1 g PO DAILY rosuvastatin 20 mg tablet 20 mg PO DAILY fluticasone propionate 50 mcg/actuation spray,suspension 2 spray intranasal DAILY Qty: 48 2RF Rx Instructions: administer into each nostril mecobalamin (vitamin B12) [B12 Active] 1,000 mcg tablet,chewable 1,000 mcg PO DAILY meloxicam 15 mg tablet See Rx Instructions .ROUTE .COMPLEX Qty: 90 2RF Dose Instruction: TAKE 1 TABLET BY MOUTH EVERY DAY Rx Instructions: TAKE 1 TABLET BY MOUTH EVERY DAY memantine 10 mg tablet 10 mg PO BID Qty: 180 3RF lorazepam 0.5 mg tablet 0.5 mg PO QHS PRN (Reason: anxiety) Qty: 30 4RF tamsulosin 0.4 mg capsule 0.4 mg PO DAILY Qty: 90 2RF trazodone 100 mg tablet 100 mg PO QHS Qty: 90 2RF donepezil 10 mg tablet 10 mg PO QHS Qty: 90 3RF pantoprazole 40 mg tablet,delayed release (DR/EC) See Rx Instructions .ROUTE .COMPLEX Qty: 180 1RF Dose Instruction: TAKE 1 TABLET BY MOUTH TWICE A DAY Rx Instructions: TAKE 1 TABLET BY MOUTH TWICE A DAY calcitonin (salmon) 200 unit/actuation spray,non-aerosol 1 spray intranasal (ALT) DAILY 30 Days Qty: 3.7 0RF hydrocodone-acetaminophen 5-325 mg tablet 1 tablet PO QID PRN (Reason: pain) Qty: 30 0RF Follow-up/Referrals: Amilcar Good DO [Primary Care Provider, Family Practice]
== END 2025-04-13 18:06 | disposition home or self-care (01) ==
PROVIDERS: Emergency Provider Emergency Medicine; PCP Family Medicine
DX: S61.213D Laceration without foreign body of left middle finger without damage to nail, subsequent encounter (principal); Z95.2 Presence of prosthetic heart valve; Z96.612 Presence of left artificial shoulder joint; Z87.891 Personal history of nicotine dependence; Z90.49 Acquired absence of other specified parts of digestive tract; Z79.82 Long term (current) use of aspirin; Z79.899 Other long term (current) drug therapy; X58.XXXD Exposure to other specified factors, subsequent encounter
CPT/HCPCS: 15853; 99282

== ENCOUNTER 2025-05-08 19:07 | Emergency (ER) | payer OTHER, SELFPAY ==
--- NOTE | ~2025-05-08 | XR_ITS ---
EXAM/ PROCEDURE: XR elbow LT min 3V - 05/08/2025 20:43 CDT HISTORY: 89 years old Male with swelling COMPARISON: None available TECHNIQUE: Three view(s) FINDINGS/ IMPRESSION: There are no fractures or dislocations.Joint spaces are within normal limits. Prominent soft tissue fullness overlying the posterior aspect of the elbow. No radiopaque foreign body or subcutaneous emphysema. Reviewed, dictated and finalized at location N.
--- OUTSIDE RECORDS SUMMARY | 2025-05-08 19:10 | XMS_ITS | Clinical Summary ---
Author Organization [facility] Address [address] [place] [address] Care Team Providers Care Field Technical Assistant Name Role Phone Unavailable Primary Care Provider [...] COVID-19 Vaccine ( - 2023-2 5 season) 2025 Meningococcal B Vaccine Aged Out No l onger eligible based on patient's age to complete this topic Meningococcal Vaccine Aged Out No jorje lexii eligible based on patient's age to complete this topic RSV Immunizations Under 20 Months Aged Out No longer eligible based on patient's age to complete this topic
--- OUTSIDE RECORDS SUMMARY | 2025-05-08 19:10 | XMS_ITS | Encounter Summary ---
Author Organization [facility] Address [address] [address] Care Team Providers Care Stonecutter Hand Name Role Phone Vik Villalba MD Primary Care Prov ider Vik Villalba MD Primary Care Prov ider Encounter Details Date Type Department Care Team (Late st Contact Info) Description 02/11/2016 Orders Only [facility] ProviderMarisel MD [address] [place] [address] Social History Tobacco Use Types Packs/Day Years Used Date Smoking Tobacco: Former Cigarettes Q uit: 08/23/1969 Alcohol Use Standard Drinks/Week Comments Yes 0 (1 standard drink = 0.6 oz pur e alcohol) Sex and Gender Information Value Date Recorded Sex Assigned at Not on file Legal Sex Male 7:29 PM CLINICAL REVIEW NURSE Gender Identity Not on file Sexual Orientation Don't know 09/24/2021 9: 14 AM CLINICAL REVIEW NURSE Sexual Orientation Straight 09/24/2021 9: 14 AM CLINICAL REVIEW NURSE documented as of this encounter Plan of [...] on filedocumented in this encounter Care Teams Stonecutter Hand Relationship Specialty Start Date End Date Vik Villalba MD PCP - General 11/06/16 Vik Villalba MD PCP - General 12/05/14 11/05/16 documented as of this encounter
--- OUTSIDE RECORDS SUMMARY | 2025-05-08 19:10 | XMS_ITS | Clinical Summary ---
Author Organization [facility] [address] Address [address] [place] [address] Care Team Providers Care Cotton Cleaner Name Role Phone Vik Villalba MD Primary [...] TABLET BY MOUTH EVERY DAY 90 tablet 05/07/20 25 Active rosuvastatin (CRESTOR) 20 mg tablet TAKE 1 TABLET BY MOUTH EVERY DAY 90 tablet 01/09/20 25 025 Discontinued rosuvastatin (CRESTOR) 20 mg tablet TAKE 1 TABLET BY MOUTH EVERY DAY 30 tablet 04/09/20 25 025 Discontinued Active Problems Problem Noted [...] on file Legal Sex Male 7:29 PM BANQUET STEWARDESS Gender Identity Not on file Sexual Orientation Don't know 09/24/2021 9: 14 AM BANQUET STEWARDESS Sexual Orientation Straight 09/24/2021 9: 14 AM BANQUET STEWARDESS Obstetrics History Last Filed Vital Signs Vital Sign Reading Time Taken Comments Blood Pressure 138/86 02/16/2024 2:07 PM CDT Pulse 88 02/16/2024 2:07 PM CDT Temperature 36.7 C (98 F) 09/05/2020 1:00 PM BANQUET STEWARDESS Respiratory Rate 12 08/02/2019 9:20 AM BANQUET STEWARDESS Oxygen Saturation 97% 02/16/2024 2:07 PM CDT [...] 65+ 2002 Covid-19 Vaccine ( - season) 2025 07/03/2021, 11/05/2020, 10/15/2020 Influenza Vaccine (#1) 2025 DTaP/Tdap/Td Vaccine (2 - Td or Tdap) 02/13/2031 Insurance [facility] Care Teams Cotton Cleaner Relationship Specialty Start Date End Date Vik Villalba MD PCP - General 11/06/16
[2025-05-08 19:18] VITALS: BP 137/77; PULSE 84; RESP 16; TEMP 36.6; O2SAT 99
--- NOTE | 2025-05-08 20:26 | ED.UPPEXIN ---
HPI - Extremity Injury (Upper) General Chief Complaint: Extremity Injury, Upper Stated Complaint: wound to left elbow Time Seen by Provider: 05/08/25 20:05 Source: patient Mode of arrival: ambulatory Limitations: no limitations History of Present Illness HPI narrative: 89-year-old with a history of dementia, hyperlipidemia, BPH was brought in by family with a complains of swelling of his left elbow acute noticed 2 days ago. Denies any trauma. No history of fever or chills. complaint: injury to: elbow (left) Onset (ago): day(s) (2) Other injuries: none Handedness: right Place: home Severity: mild Relieving factors: none Exacerbating factors: none Associated symptoms: denies other symptoms Related Data Home Medications ?Medication ?Instructions ?Recorded ?Confirmed ?Last Taken ?Type aspirin 81 mg tablet,delayed 81 mg PO DAILY 09/03/21 04/19/25 02/20/25 History release (Adult Low Dose Aspirin) multivitamin 1 tablet PO DAILY 09/03/21 04/19/25 02/20/25 History rosuvastatin 20 mg tablet 20 mg PO DAILY 11/13/22 04/19/25 02/20/25 History mecobalamin (vitamin B12) 1,000 1,000 mcg PO DAILY 04/07/23 04/19/25 02/20/25 History mcg chewable tablet (B12 Active) Allergies Allergy/AdvReac Type Severity Reaction Status Date / Time bupropion AdvReac Intermediate tremors Verified 05/08/25 19:25 rosuvastatin AdvReac Mild diarrhea Verified 05/08/25 19:25 temazepam AdvReac Mild Unknown Verified 05/08/25 19:25 Review of Systems Review of Systems: All systems reviewed & are unremarkable except as noted in HPI and below Constitutional: Constitutional: Reports no additional constitutional complaints Eyes: Eyes: Reports no additional eye complaints ENT: Reports system reviewed and no additional complaints, except as documented Cardiovascular: Cardiovascular: Reports no additional cardiovascular complaints Respiratory: Respiratory: Reports no additional respiratory complaints Gastrointestinal: Gastrointestinal: Reports no additional gastrointestinal complaints Musculoskeletal: Musculoskeletal: Reports as per HPI Neurologic: Reports system reviewed and no additional complaints, except as documented PMFSH Past Medical History Medical History Debility Traumatic amputation of second toe osteomyelitis Surgical History Surgical History History of aortic valve replacement (2013) History of inguinal hernia repair (2010) Status post reverse arthroplasty of left shoulder (2015) 03/07 Hx laparoscopic cholecystectomy (2010) Family History Family History Father Cancer Mother Cancer Daughter Lung cancer Social History Social History Smoking status: Former smoker Alcohol intake: current Drinks per week: 14 Substance use: never Substance use type: does not use Lack of Transportation: No Lack of Food: Never True Current Housing: I Have Housing Concerned About Future Housing: No Difficulty Paying Gas/Electric Bills: No Difficulty Paying for Meds: No Currently Unemployed: No Education: Master's Degree or Higher Difficulty w/ Childcare or Family Care: No Living arrangements: with family Occupation/Education: retired Gender identity (if verbalized by the patient): Male Sexual Orientation (if Verbalized by the Patient): Straight or Heterosexual Spiritual care concerns: No Agree to blood products: Yes Exam Narrative: GENERAL: Well-appearing, well-nourished, and in no acute distress. HEAD: Normocephalic, atraumatic. EYES: PERRLA and EOMI. ENT: Nares clear, no rhinorrhea or epistaxis. Mucous membranes moist. NECK: Supple. CHEST: Clear to auscultation. No respiratory distress. HEART: Regular rate and rhythm. No murmur heard. Normal peripheral pulses. EXTREMITIES: Normal range of motion. No edema.examination of the left elbow has a swelling .soft , non tender ,no evidence of infection SKIN: Warm, dry, no rash. NEURO: No focal deficits. Alert . PSYCH: Normal mood and affect. Course Course Emergency Course: informed about the diagnosis , conservative management at this time Vital Signs Vital signs: Vital Signs Temperature 36.6 C 05/08/25 19:18 Pulse Rate 84 05/08/25 19:18 Respiratory Rate 16 05/08/25 19:18 Blood Pressure 137/77 05/08/25 19:18 Pulse Oximetry 99 05/08/25 19:18 Oxygen Delivery Room Air 05/08/25 19:18 Temperature 36.6 C 05/08/25 19:18 Pulse Rate 84 05/08/25 19:18 Respiratory Rate 16 05/08/25 19:18 Blood Pressure 137/77 05/08/25 19:18 Pulse Oximetry 99 05/08/25 19:18 Oxygen Delivery Room Air 05/08/25 19:18 Discharge Plan Discharge Clinical Impression: Olecranon bursitis, left elbow Patient Disposition: Home Condition: Stable Instructions: Elbow Bursitis (ED) Patient Language: Nepali Prescriptions: No Action aspirin [Adult Low Dose Aspirin] 81 mg tablet,delayed release (DR/EC) 81 mg PO DAILY multivitamin Tablet 1 tablet PO DAILY rosuvastatin 20 mg tablet 20 mg PO DAILY fluticasone propionate 50 mcg/actuation spray,suspension 2 spray intranasal DAILY Qty: 48 2RF Rx Instructions: administer into each nostril mecobalamin (vitamin B12) [B12 Active] 1,000 mcg tablet,chewable 1,000 mcg PO DAILY meloxicam 15 mg tablet See Rx Instructions .ROUTE .COMPLEX Qty: 90 2RF Dose Instruction: TAKE 1 TABLET BY MOUTH EVERY DAY Rx Instructions: TAKE 1 TABLET BY MOUTH EVERY DAY memantine 10 mg tablet 10 mg PO BID Qty: 180 3RF lorazepam 0.5 mg tablet 0.5 mg PO QHS PRN (Reason: anxiety) Qty: 30 4RF tamsulosin 0.4 mg capsule 0.4 mg PO DAILY Qty: 90 2RF trazodone 100 mg tablet 100 mg PO QHS Qty: 90 2RF donepezil 10 mg tablet 10 mg PO QHS Qty: 90 3RF pantoprazole 40 mg tablet,delayed release (DR/EC) See Rx Instructions .ROUTE .COMPLEX Qty: 180 1RF Dose Instruction: TAKE 1 TABLET BY MOUTH TWICE A DAY Rx Instructions: TAKE 1 TABLET BY MOUTH TWICE A DAY calcitonin (salmon) 200 unit/actuation spray,non-aerosol 1 spray intranasal (ALT) DAILY 30 Days Qty: 3.7 0RF Follow-up/Referrals: Marv Eaton MD [Physician, Orthopedics] Amilcar Good DO [Primary Care Provider, Family Practice] Time of Disposition: 20:33
--- OUTSIDE RECORDS SUMMARY | 2025-05-08 20:50 | XMS_ITS ---
Author Name DEONTE SO M.D. Address [address] [facility] [place] [address] Phone [phone] Organization [facility] ([facility]) Care Team Providers Care Recordings Librarian Name Role Phone DEONTE SO Unavailable [phone] Sukhwinder Cuevas Unavailable [phone] Vik Villalba Unavailable [phone] Reason for Referral Not Available Allergies, adverse [...] tive Time Current Smoking Status Former smoker 2025-04-23 7 Sex Male History of Procedures Procedures Service Procedure code Service date Servicing provider Phone# Home visit for evaluation and management of new patient requiring medically appropriate examination and moderate level of medical decision making. If using time, at least 60 minutes [place] on enco [id number] 2024-11-09 No Data Available No Data Availa [...] Patient lives spouse. Closest daughter is in [place], [place]. He is independent with his care regarding ADL's, but relies on for other things as he has dementia. He does not use any form of assistive device for ambulation.
--- OUTSIDE RECORDS SUMMARY | 2025-05-08 20:50 | XMS_ITS | Clinical Summary ---
Author Organization [facility] [address] Address [address] [place] [address] Care Team Providers Care Social Media Executive Name Role Phone Vik Villalba MD [...] file Legal Sex Male 7:29 PM ASSISTANT THERAPY AIDE Gender Identity Not on file Sexual Orientation Don't know 09/24/2021 9: 14 AM ASSISTANT THERAPY AIDE Sexual Orientation Straight 09/24/2021 9: 14 AM ASSISTANT THERAPY AIDE Obstetrics History Last Filed Vital Signs Vital Sign Reading Time Taken Comments Blood Pressure 138/86 02/16/2024 2:07 PM CDT Pulse 88 02/16/2024 2:07 PM CDT Temperature 36.7 C (98 F) 09/05/2020 1:00 PM ASSISTANT THERAPY AIDE Respiratory Rate 12 08/02/2019 9:20 AM ASSISTANT THERAPY AIDE Oxygen Saturation 97% 02/16/2024 2:07 PM CDT [...] - Td or Tdap) 02/13/[address] [facility] Care Teams Social Media Executive Relationship Specialty Start Date End Date Vik Villalba MD PCP - General 11/06/16
--- OUTSIDE RECORDS SUMMARY | 2025-05-08 20:51 | XMS_ITS | Encounter Summary ---
Author Organization [facility] Address [address] [address] Care Team Providers Care Work Order Detailer Name Role Phone Vik Villalba MD Primary Care Prov ider Vik Villalba MD Primary Care Prov ider Encounter Details Date Type Department Care Team (Late st Contact Info) Description 02/11/2016 Orders Only [facility] ProviderMarisel MD [address] [place] [id number] Social History Tobacco Use Types Packs/Day Years Used Date Smoking Tobacco: Former Cigarettes Q uit: 08/23/1969 Alcohol Use Standard Drinks/Week Comments Yes 0 (1 standard drink = 0.6 oz pur e alcohol) Sex and Gender Information Value Date Recorded Sex Assigned at Not on file Legal Sex Male 7:29 PM AUCTION ASSISTANT Gender Identity Not on file Sexual Orientation Don't know 09/24/2021 9: 14 AM AUCTION ASSISTANT Sexual Orientation Straight 09/24/2021 9: 14 AM AUCTION ASSISTANT documented as of this encounter Plan of [...] on filedocumented in this encounter Care Teams Work Order Detailer Relationship Specialty Start Date End Date Vik Villalba MD PCP - General 11/06/16 Vik Villalba MD PCP - General 12/05/14 11/05/16 documented as of this encounter
[2025-05-09 00:10] VITALS: BP 126/63; PULSE 83; RESP 18; O2SAT 97
== END 2025-05-09 00:08 | disposition home or self-care (01) ==
PROVIDERS: Emergency Provider Family Medicine; PCP Family Medicine
DX: M70.22 Olecranon bursitis, left elbow (principal); F03.90 Unspecified dementia, unspecified severity, without behavioral disturbance, psychotic disturbance, mood disturbance, and anxiety; E78.5 Hyperlipidemia, unspecified; N40.0 Benign prostatic hyperplasia without lower urinary tract symptoms; Z95.2 Presence of prosthetic heart valve; Z96.612 Presence of left artificial shoulder joint; Z87.891 Personal history of nicotine dependence; Z90.49 Acquired absence of other specified parts of digestive tract; Z79.82 Long term (current) use of aspirin; Z79.899 Other long term (current) drug therapy
CPT/HCPCS: 73080; 99283